=== PATIENT | female | born 1945 | race Caucasian/White ===

== ENCOUNTER 2018-04-01 21:02 | Inpatient (IN) | payer MEDICARE, BC ==
[2018-04-01] MEDS ORDERED: Furosemide 40 MG/4 ML VIAL IVPUSH ONE (22:32)
--- NOTE | 2018-04-01 23:44 | EDM.PDOC ---
ED HPI GENERAL MEDICAL PROBLEM - General Chief Complaint: Respiratory Problem Stated Complaint: SORTNESS BREATH/CONGESTED Time Seen by Provider: 04/01/18 21:40 Source of Information: Reports: Patient, Family (SOn) History Limitations: Reports: Altered Mental Status (Somnolent) - History of Present Illness INITIAL COMMENTS - FREE TEXT/NARRATIVE: The patient states that she has had dyspnea at rest for the past 3 days. She also reports nasal congestion for the past few days. No wheezing, cough, fever, orthopnea, chest pain, palpitations, nausea, vomiting, constipation, diarrhea, or urinary symptoms. The patient has not taken any home medications for her symptoms. She has a history of COPD, and is on 2-3 L of oxygen continuously, that she titrates 2 and SpO2 in the low 90s. She states that she has not required increased oxygen recently. She states that she has had similar symptoms previously, although does not recall when, and believes that it was due to CHF. The patient's PCP is Dr. Diana Haas. She has not seen a Bacteriology Professor for over a year. Her Filler Feeder is Dr. Robins, who she has not seen for over a year, but believes that she has an appointment to see him this coming June or July. - Related Data Allergies Allergy/AdvReac Type Severity Reaction Status Date / Time No Known Allergies Allergy Verified 04/01/18 21:15 Home Meds: Home Meds Acetaminophen 650 mg PO Q4H PRN 05/01/15 [History] Lisinopril 20 mg PO DAILY 05/01/15 [History] Similasan 1 drop EYEBOTH DAILY PRN 05/01/15 [History] Insulin Glargine,Hum.Rec.Anlog [Toujeo Solostar] 70 unit SQ DAILY 03/06/16 [ History] Liraglutide [Victoza] 0.6 mg SQ DAILY 03/07/16 [History] Furosemide 40 mg PO BID 03/22/16 [History] Warfarin [Coumadin] 2 mg PO DAILY 03/22/16 [History] Diltiazem [Cardizem CD] 120 mg PO DAILY 08/05/16 [History] Past Medical History HEENT History: Reports: Impaired Vision Other HEENT History: wears eyeglasses Cardiovascular History: Reports: Afib, Heart Failure, High Cholesterol, Hypertension Respiratory History: Reports: COPD (home O2 2-3 L/NC continuously), Intubation, Previous, Sleep Apnea (nightly CPAP w/ O2) Genitourinary History: Reports: Urinary Incontinence 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: Musculoskeletal History: Reports: Back Pain, Chronic, Osteoarthritis Endocrine/Metabolic History: Reports: Diabetes, Type II, Obesity/BMI 30+ - Infectious Disease History Infectious Disease History: Reports: Chicken Pox, Measles, Mumps - Past Surgical History HEENT Surgical History: Reports: Cataract Surgery Musculoskeletal Surgical History: Reports: Carpal Tunnel (right) Social & Family History - Family History Family Medical History: Noncontributory - Tobacco Use Smoking Status *Q: Former Smoker Years of Tobacco use: 33 Packs/Tins Daily: 0.5 Month/Year Tobacco Last Used: Quit 1994 - Caffeine Use Caffeine Use: Reports: Coffee - Alcohol Use Alcohol Use History: Yes Alcohol Use Frequency: Rarely - Recreational Drug Use Recreational Drug Use: No - Living Situation & Occupation Living situation: Reports: , with Spouse Occupation: Retired ED ROS GENERAL - Review of Systems Review Of Systems: ROS reveals no pertinent complaints other than HPI. ED EXAM, GENERAL - Physical Exam Exam: See Below Exam Limited By: No Limitations (The patient was somnolent, but did cooperate with the examination) General Appearance: Alert, WD/WN, No Apparent Distress Eye Exam: Bilateral Eye: Normal Inspection Ears: Normal External Exam, Hearing Grossly Normal Nose: Normal Inspection, No Blood Throat/Mouth: Normal Inspection, Normal Lips, Normal Voice, No Airway Compromise Head: Atraumatic, Normocephalic Neck: Normal Inspection Respiratory/Chest: No Respiratory Distress, No Accessory Muscle Use, Decreased Breath Sounds (throughout), Crackles (bibasilar, Rt > Lt). No: Rhonchi, Wheezing Cardiovascular: Normal Peripheral Pulses, Regular Rate, Rhythm, No Gallop, No JVD, No Murmur, No Rub Peripheral Pulses: 4+: Radial (L), Radial (R) GI/Abdominal: Normal Bowel Sounds, Soft, Non-Tender, No Organomegaly, No Distention, No Abnormal Bruit, No Mass, Other (Obese) (Female) Exam: Deferred Rectal (Female) Exam: Deferred Back Exam: Normal Inspection, Full Range of Motion, NT Extremities: Normal Inspection, Normal Range of Motion, Non-Tender, Normal Capillary Refill, Other (1-2 + pretibial edema bilaterally) Neurological: No Motor/Sensory Deficits, Inattentive (fell asleep frequently) Skin Exam: Warm, Dry, Intact, Normal Color, No Rash ED RESPIRATORY PROCEDURES - Endotracheal Intubation Time of Intubation: 01:16 ET Intubation Indication: Respiratory Failure Preparation: Suction, Balloon Tested, BVM Set Up, Difficult Airway Equip Airway Assessment: Obese Pre-Oxygenation: Assisted with BVM, 100% FiO2 Anesthesia Meds: Propofol (40 mg), Vecuronium (8 mg) Placement: Orotracheal, Cuffed, Uncomplicated Placement Cords Visualized: Yes, Grade 2 ETT Size In mm: 8.0 Number of Attempts: 1 Confirmed By: CO2 Indicator, Bilateral Breath Sounds, Chest Xray Tube Secured By: By RT EKG INTERPRETATION EKG Date: 04/01/18 Time: 22:39 Rhythm: A-Fib Rate (Beats/Min): 77 [place]: Normal P-Wave: Absent QRS: Normal ST-T: Normal QT: Normal Comparison: No Change Course - Vital Signs Last Recorded V/S: Last Vital Signs Temp 36.2 C 04/01/18 21:12 Pulse 74 04/02/18 07:15 Resp 16 04/02/18 07:15 BP 137/44 L 04/02/18 07:15 Pulse Ox 92 L 04/02/18 07:15 - Orders/Labs/Meds Orders: Active Orders 24 hr Category Date Time Status BIPAP Adult [RT BiPAP/CPAP] [RC] ASDIRECTED Care 04/01/18 23:42 Active EKG Documentation Completion [RC] STAT Care 04/01/18 22:30 Active Insert [place] Catheter [Insert Urinary Catheter] [OM.PC] Care 04/01/18 22:30 Ordered Q24H Urinary Catheter Assessment [RC] ASDIRECTED Care 04/02/18 03:11 Active CULTURE BLOOD [BC] Stat Lab 04/01/18 22:45 Received CULTURE BLOOD [BC] Stat Lab 04/01/18 23:00 Received UA W/MICROSCOPIC [URIN] Stat Lab 04/01/18 22:30 Ordered DOPamine/Dextrose 5%-Water [DOPamine in D5W 400 MG/250 Med 04/02/18 03:00 Active ML] 400 mg in 250 ml IV TITRATE Norepinephrine [Levophed] 4 mg Med 04/02/18 02:15 Active Dextrose 5% in Water 246 ml IV TITRATE Blood Culture x2 Reflex Set [OM.PC] Stat Oth 04/01/18 22:30 Ordered Nasogastric Orogastric Tube Insertion [OM.PC] Routine Oth 04/02/18 02:00 Ordered Medication Orders Acetaminophen (Tylenol) 650 mg PO Q4H PRN PRN Reason: Pain (Mild 1-3)/fever Hydrocodone Bitart/Acetaminophen ([place] 325-5 Mg) 1 tab PO Q4H PRN PRN Reason: Pain (moderate 4-6) Albuterol/Ipratropium (Duoneb 3.0-0.5 Mg/3 Ml) 3 ml NEB Q4H PRN PRN Reason: Shortness Of Breath/wheezing Bisacodyl (Dulcolax) 5 mg PO DAILY PRN PRN Reason: Constipation Docusate Sodium (Colace) 100 mg PO BID PRN PRN Reason: Constipation Enoxaparin Sodium (Lovenox) 40 mg SUBCUT DAILY [facility] Hydromorphone HCl (Dilaudid) 0.25 mg IVPUSH Q2H PRN PRN Reason: Pain (severe 7-10) Norepinephrine Bitartrate 4 mg (/ Dextrose/Water) 250 mls @ 7.5 mls/hr IV TITRATE [facility]; Protocol Last Titration: 04/02/18 02:50 Dose: 0 mcg/min, 0 mls/hr Admin: 04/02/18 02:37 Dose: 2 mcg/min, 7.5 mls/hr Dopamine HCl/Dextrose (Dopamine In D5w 400 Mg/250 Ml) 400 mg in 250 mls @ 62.936 mls/hr IV TITRATE [facility]; Protocol Last Titration: 04/02/18 07:51 Dose: 5 mcg/kg/min, 15.734 mls/hr Titration: 04/02/18 07:04 Dose: 4 mcg/kg/min, 12.587 mls/hr Titration: 04/02/18 04:44 Dose: 8 mcg/kg/min, 25.2 mls/hr Titration: 04/02/18 04:32 Dose: 10.01 mcg/kg/min, 31.5 mls/hr Titration: 04/02/18 04:23 Dose: 8 mcg/kg/min, 25.2 mls/hr Titration: 04/02/18 03:39 Dose: 4.98 mcg/kg/min, 15.7 mls/hr Titration: 04/02/18 02:55 Dose: 10.01 mcg/kg/min, 31.5 mls/hr Admin: 04/02/18 02:50 Dose: 20 mcg/kg/min, 62.936 mls/hr Midazolam HCl 50 mg/ Sodium (Chloride) 50 mls @ 1.67 mls/hr IV TITRATE [facility]; Protocol Sodium Chloride (Normal Saline) 500 mls @ 5 mls/hr IV DAILY [facility] Promethazine HCl 12.5 mg/ (Sodium Chloride) 50.5 mls @ 100 mls/hr IV Q6H PRN PRN Reason: Nausea/Vomiting Lorazepam (Ativan) 1 mg IV Q6H PRN PRN Reason: Anxiety Ondansetron HCl (Zofran) 4 mg IV Q6H PRN PRN Reason: Nausea/Vomiting Pantoprazole Sodium (Protonix Iv) 40 mg IV Q12HR [facility] Polyethylene Glycol (Miralax) 17 gm PO DAILY PRN PRN Reason: Constipation Senna/Docusate Sodium (Senna Plus) 1 tab PO BID PRN PRN Reason: Constipation Labs: Laboratory Tests 04/01/18 04/01/18 04/01/18 Range/Units 22:30 22:40 22:40 WBC 9.16 (3.98-10.04) K/mm3 RBC 3.87 L (3.98-5.22) M/mm3 Hgb 13.1 (11.2-15.7) gm/L Hct 42.5 (34.1-44.9) % MCV 109.8 H (79.4-94.8) fl MCH 33.9 H (25.6-32.2) pg MCHC 30.8 L (32.2-35.5) g/dl RDW Std Deviation 69.2 H (36.4-46.3) fL Plt Count 185 (182-369) K/mm3 MPV 11.4 (9.4-12.3) fl Neutrophils % (Manual) 78 H (40-60) % Band Neutrophils % 0 (0-10) % Lymphocytes % (Manual) 11 L (20-40) % Atypical Lymphs % 3 % Monocytes % (Manual) 7 (2-10) % Eosinophils % (Manual) 1 (0.7-5.8) % Basophils % (Manual) 0 L (0.1-1.2) Toxic Granulation 2+ moderate Platelet Estimate Adequate Plt Morphology Comment Normal Polychromasia 1+ slight Poikilocytosis 1+ slight Basophilic Stippling 1+ slight Anisocytosis 2+ moderate Microcytosis 1+ slight Macrocytosis 2+ moderate RBC Morph Comment Abnormal PT 20.3 H (9.5-12.1) SECONDS INR 1.89 APTT 34 H (24-31) SECONDS D-Dimer, Quantitative 0.49 (0.19-0.50) mg/L Puncture Site ABG pH (7.35-7.45) ABG pCO2 (35.0-45.0) mmHg ABG pO2 (80.0-100.0) mmHg ABG HCO3 (22.0-26.0) meq/L ABG O2 Saturation (96.0-97.0) % ABG Base Excess (-2-2.0) Daljit Test A-a Gradient mmHg O2 Delivery Device Oxygen Flow Rate FiO2 (21.00-100.00) % Tidal Volume cc PEEP cmH20 Pressure Support cmH2O Sodium (136-145) mEq/L Potassium (3.5-5.1) mEq/L Chloride (98-107) mEq/L Carbon Dioxide (21-32) mEq/L Anion Gap (5-15) BUN (7-18) mg/dL Creatinine (0.55-1.02) mg/dL Est Cr Clr Drug Dosing mL/min Estimated GFR (MDRD) (>60) mL/min BUN/Creatinine Ratio (14-18) Glucose (83-115) mg/dL Lactic Acid (0.4-2.0) mmol/L Calcium (8.5-10.1) mg/dL Total Bilirubin (0.2-1.0) mg/dL AST (15-37) U/L ALT (14-59) U/L Alkaline Phosphatase (46-116) U/L Troponin I (0.00-0.056) ng/mL NT-Pro-B Natriuret Pep (0-125) pg/mL Total Protein (6.4-8.2) g/dl Albumin (3.4-5.0) g/dl Globulin gm/dL Albumin/Globulin Ratio (1-2) Urine Color Yellow (Yellow) Urine Appearance Clear (Clear) Urine pH 5.5 (5.0-8.0) Ur Specific [place] 1.025 (1.005-1.030) Urine Protein Negative (Negative) Urine Glucose (UA) Negative (Negative) Urine Ketones Negative (Negative) Urine Occult Blood Trace-intact H (Negative) Urine Nitrite Negative (Negative) Urine Bilirubin Negative (Negative) Urine Urobilinogen 0.2 (0.2-1.0) Ur Leukocyte Esterase Trace H (Negative) Urine RBC Not seen (0-5) /hpf Urine WBC 0-5 (0-5) /hpf Ur Epithelial Cells 0-5 (0-5) /hpf Urine Bacteria Rare (FEW) /hpf Hyaline Casts 0-5 (0-5) /lpf Waxy Casts 0-5 (0-5) /lpf Urine Mucus Not seen (FEW) /hpf 04/01/18 04/01/18 04/01/18 Range/Units 22:40 22:40 22:40 WBC (3.98-10.04) K/mm3 RBC (3.98-5.22) M/mm3 Hgb (11.2-15.7) gm/L Hct (34.1-44.9) % MCV (79.4-94.8) fl MCH (25.6-32.2) pg MCHC (32.2-35.5) g/dl RDW Std Deviation (36.4-46.3) fL Plt Count (182-369) K/mm3 MPV (9.4-12.3) fl Neutrophils % (Manual) (40-60) % Band Neutrophils % (0-10) % Lymphocytes % (Manual) (20-40) % Atypical Lymphs % % Monocytes % (Manual) (2-10) % Eosinophils % (Manual) (0.7-5.8) % Basophils % (Manual) (0.1-1.2) Toxic Granulation Platelet Estimate Plt Morphology Comment Polychromasia Poikilocytosis Basophilic Stippling Anisocytosis Microcytosis Macrocytosis RBC Morph Comment PT (9.5-12.1) SECONDS INR APTT (24-31) SECONDS D-Dimer, Quantitative (0.19-0.50) mg/L Puncture Site ABG pH (7.35-7.45) ABG pCO2 (35.0-45.0) mmHg ABG pO2 (80.0-100.0) mmHg ABG HCO3 (22.0-26.0) meq/L ABG O2 Saturation (96.0-97.0) % ABG Base Excess (-2-2.0) Daljit Test A-a Gradient mmHg O2 Delivery Device Oxygen Flow Rate FiO2 (21.00-100.00) % Tidal Volume cc PEEP cmH20 Pressure Support cmH2O Sodium 141 (136-145) mEq/L Potassium 5.8 H (3.5-5.1) mEq/L Chloride 104 (98-107) mEq/L Carbon Dioxide 33 H (21-32) mEq/L Anion Gap 9.8 (5-15) BUN 72 H (7-18) mg/dL Creatinine 2.3 H (0.55-1.02) mg/dL Est Cr Clr Drug Dosing 19.37 mL/min Estimated GFR (MDRD) 21 (>60) mL/min BUN/Creatinine Ratio 31.3 H (14-18) Glucose 149 H (83-115) mg/dL Lactic Acid 0.6 (0.4-2.0) mmol/L Calcium 8.6 (8.5-10.1) mg/dL Total Bilirubin 1.1 H (0.2-1.0) mg/dL AST 25 (15-37) U/L ALT 35 (14-59) U/L Alkaline Phosphatase 116 (46-116) U/L Troponin I < 0.017 (0.00-0.056) ng/mL NT-Pro-B Natriuret Pep 4111 H (0-125) pg/mL Total Protein 7.1 (6.4-8.2) g/dl Albumin 3.7 (3.4-5.0) g/dl Globulin 3.4 gm/dL Albumin/Globulin Ratio 1.1 (1-2) Urine Color (Yellow) Urine Appearance (Clear) Urine pH (5.0-8.0) Ur Specific [place] (1.005-1.030) Urine Protein (Negative) Urine Glucose (UA) (Negative) Urine Ketones (Negative) Urine Occult Blood (Negative) Urine Nitrite (Negative) Urine Bilirubin (Negative) Urine Urobilinogen (0.2-1.0) Ur Leukocyte Esterase (Negative) Urine RBC (0-5) /hpf Urine WBC (0-5) /hpf Ur Epithelial Cells (0-5) /hpf Urine Bacteria (FEW) /hpf Hyaline Casts (0-5) /lpf Waxy Casts (0-5) /lpf Urine Mucus (FEW) /hpf 04/01/18 04/02/18 04/02/18 Range/Units 23:20 00:30 03:00 WBC (3.98-10.04) K/mm3 RBC (3.98-5.22) M/mm3 Hgb (11.2-15.7) gm/L Hct (34.1-44.9) % MCV (79.4-94.8) fl MCH (25.6-32.2) pg MCHC (32.2-35.5) g/dl RDW Std Deviation (36.4-46.3) fL Plt Count (182-369) K/mm3 MPV (9.4-12.3) fl Neutrophils % (Manual) (40-60) % Band Neutrophils % (0-10) % Lymphocytes % (Manual) (20-40) % Atypical Lymphs % % Monocytes % (Manual) (2-10) % Eosinophils % (Manual) (0.7-5.8) % Basophils % (Manual) (0.1-1.2) Toxic Granulation Platelet Estimate Plt Morphology Comment Polychromasia Poikilocytosis Basophilic Stippling Anisocytosis Microcytosis Macrocytosis RBC Morph Comment PT (9.5-12.1) SECONDS INR APTT (24-31) SECONDS D-Dimer, Quantitative (0.19-0.50) mg/L Puncture Site Rt radial Rt radial Rt radial ABG pH 7.27 L 7.23 L 7.22 L (7.35-7.45) ABG pCO2 72.0 H* 81.8 H* 80.6 H* (35.0-45.0) mmHg ABG pO2 76.0 L 92.0 113.0 H (80.0-100.0) mmHg ABG HCO3 32.2 H 33.1 H 32.1 H (22.0-26.0) meq/L ABG O2 Saturation 90.6 L 94.7 L 97.5 H (96.0-97.0) % ABG Base Excess 3.6 H 3.3 H 2.3 H (-2-2.0) Daljit Test Positive Positive A-a Gradient 65 126 427 mmHg O2 Delivery Device Nasal cannula Bipap Ventilator Oxygen Flow Rate 4.0 0.0 FiO2 36.00 50.00 100.00 (21.00-100.00) % Tidal Volume 400.0 cc PEEP 4.0 5.0 cmH20 Pressure Support 10.0 cmH2O Sodium (136-145) mEq/L Potassium (3.5-5.1) mEq/L Chloride (98-107) mEq/L Carbon Dioxide (21-32) mEq/L Anion Gap (5-15) BUN (7-18) mg/dL Creatinine (0.55-1.02) mg/dL Est Cr Clr Drug Dosing mL/min Estimated GFR (MDRD) (>60) mL/min BUN/Creatinine Ratio (14-18) Glucose (83-115) mg/dL Lactic Acid (0.4-2.0) mmol/L Calcium (8.5-10.1) mg/dL Total Bilirubin (0.2-1.0) mg/dL AST (15-37) U/L ALT (14-59) U/L Alkaline Phosphatase (46-116) U/L Troponin I (0.00-0.056) ng/mL NT-Pro-B Natriuret Pep (0-125) pg/mL Total Protein (6.4-8.2) g/dl Albumin (3.4-5.0) g/dl Globulin gm/dL Albumin/Globulin Ratio (1-2) Urine Color (Yellow) Urine Appearance (Clear) Urine pH (5.0-8.0) Ur Specific [place] (1.005-1.030) Urine Protein (Negative) Urine Glucose (UA) (Negative) Urine Ketones (Negative) Urine Occult Blood (Negative) Urine Nitrite (Negative) Urine Bilirubin (Negative) Urine Urobilinogen (0.2-1.0) Ur Leukocyte Esterase (Negative) Urine RBC (0-5) /hpf Urine WBC (0-5) /hpf Ur Epithelial Cells (0-5) /hpf Urine Bacteria (FEW) /hpf Hyaline Casts (0-5) /lpf Waxy Casts (0-5) /lpf Urine Mucus (FEW) /hpf 07/13/18 Range/Units 04:10 WBC (3.98-10.04) K/mm3 RBC (3.98-5.22) M/mm3 Hgb (11.2-15.7) gm/L Hct (34.1-44.9) % MCV (79.4-94.8) fl MCH (25.6-32.2) pg MCHC (32.2-35.5) g/dl RDW Std Deviation (36.4-46.3) fL Plt Count (182-369) K/mm3 MPV (9.4-12.3) fl Neutrophils % (Manual) (40-60) % Band Neutrophils % (0-10) % Lymphocytes % (Manual) (20-40) % Atypical Lymphs % % Monocytes % (Manual) (2-10) % Eosinophils % (Manual) (0.7-5.8) % Basophils % (Manual) (0.1-1.2) Toxic Granulation Platelet Estimate Plt Morphology Comment Polychromasia Poikilocytosis Basophilic Stippling Anisocytosis Microcytosis Macrocytosis RBC Morph Comment PT (9.5-12.1) SECONDS INR APTT (24-31) SECONDS D-Dimer, Quantitative (0.19-0.50) mg/L Puncture Site Rt radial ABG pH 7.34 L (7.35-7.45) ABG pCO2 56.2 H (35.0-45.0) mmHg ABG pO2 65.0 L (80.0-100.0) mmHg ABG HCO3 29.2 H (22.0-26.0) meq/L ABG O2 Saturation 89.1 L (96.0-97.0) % ABG Base Excess 2.6 H (-2-2.0) Daljit Test Positive A-a Gradient 313 mmHg O2 Delivery Device Ventilator Oxygen Flow Rate 0.0 FiO2 70.00 (21.00-100.00) % Tidal Volume 600.0 cc PEEP 5.0 cmH20 Pressure Support cmH2O Sodium (136-145) mEq/L Potassium (3.5-5.1) mEq/L Chloride (98-107) mEq/L Carbon Dioxide (21-32) mEq/L Anion Gap (5-15) BUN (7-18) mg/dL Creatinine (0.55-1.02) mg/dL Est Cr Clr Drug Dosing mL/min Estimated GFR (MDRD) (>60) mL/min BUN/Creatinine Ratio (14-18) Glucose (83-115) mg/dL Lactic Acid (0.4-2.0) mmol/L Calcium (8.5-10.1) mg/dL Total Bilirubin (0.2-1.0) mg/dL AST (15-37) U/L ALT (14-59) U/L Alkaline Phosphatase (46-116) U/L Troponin I (0.00-0.056) ng/mL NT-Pro-B Natriuret Pep (0-125) pg/mL Total Protein (6.4-8.2) g/dl Albumin (3.4-5.0) g/dl Globulin gm/dL Albumin/Globulin Ratio (1-2) Urine Color (Yellow) Urine Appearance (Clear) Urine pH (5.0-8.0) Ur Specific [place] (1.005-1.030) Urine Protein (Negative) Urine Glucose (UA) (Negative) Urine Ketones (Negative) Urine Occult Blood (Negative) Urine Nitrite (Negative) Urine Bilirubin (Negative) Urine Urobilinogen (0.2-1.0) Ur Leukocyte Esterase (Negative) Urine RBC (0-5) /hpf Urine WBC (0-5) /hpf Ur Epithelial Cells (0-5) /hpf Urine Bacteria (FEW) /hpf Hyaline Casts (0-5) /lpf Waxy Casts (0-5) /lpf Urine Mucus (FEW) /hpf Meds: Medications Generic Name Dose Route Start Last Admin Trade Name Freq PRN Reason Stop Dose Admin Acetaminophen 650 mg 04/02/18 08:09 Tylenol PO Q4H PRN Pain (Mild 1-3)/fever Hydrocodone Bitart/Acetaminophen 1 tab 04/02/18 08:09 [place] 325-5 Mg PO Q4H PRN Pain (moderate 4-6) Albuterol/Ipratropium 3 ml 04/02/18 08:09 Duoneb 3.0-0.5 Mg/3 Ml NEB Q4H PRN Shortness Of Breath/wheezing Bisacodyl 5 mg 04/02/18 08:09 Dulcolax PO DAILY PRN Constipation Docusate Sodium 100 mg 04/02/18 08:09 Colace PO BID PRN Constipation Enoxaparin Sodium 40 mg 04/02/18 09:00 Lovenox SUBCUT DAILY [facility] Hydromorphone HCl 0.25 mg 04/02/18 08:09 Dilaudid IVPUSH Q2H PRN Pain (severe 7-10) Norepinephrine Bitartrate 4 mg 250 mls @ 7.5 mls/hr 04/02/18 02:15 04/02/18 02:50 / Dextrose/Water IV 0 mcg/min TITRATE [facility] 0 mls/hr Titration Protocol 2 MCG/MIN Dopamine HCl/Dextrose 400 mg in 250 mls @ 62.936 mls/hr 04/02/18 03:00 07:51 Dopamine In D5w 400 Mg/250 Ml IV 5 mcg/kg/min TITRATE [facility] 15.734 mls/hr Titration Protocol 20 MCG/KG/MIN Midazolam HCl 50 mg/ Sodium 50 mls @ 1.67 mls/hr 04/02/18 07:45 Chloride IV TITRATE [facility] Protocol 0.02 MG/KG/HR Sodium Chloride 500 mls @ 5 mls/hr 04/02/18 09:00 Normal Saline IV DAILY [facility] Promethazine HCl 12.5 mg/ 50.5 mls @ 100 mls/hr 04/02/18 08:09 Sodium Chloride IV Q6H PRN Nausea/Vomiting Lorazepam 1 mg 04/02/18 08:09 Ativan IV Q6H PRN Anxiety Ondansetron HCl 4 mg 04/02/18 08:09 Zofran IV Q6H PRN Nausea/Vomiting Pantoprazole Sodium 40 mg 04/02/18 09:00 Protonix Iv IV Q12HR [facility] Polyethylene Glycol 17 gm 04/02/18 08:09 Miralax PO DAILY PRN Constipation Senna/Docusate Sodium 1 tab 04/02/18 08:09 Senna Plus PO BID PRN Constipation Discontinued Medications Generic Name Dose Route Start Last Admin Trade Name Freq PRN Reason Stop Dose Admin Calcium Gluconate 1 gm 04/02/18 00:24 04/02/18 00:38 Calcium Gluconate IV 04/02/18 00:25 1 gm ONETIME STA Administration Furosemide 40 mg 04/01/18 22:32 04/01/18 22:56 Lasix IVPUSH 04/01/18 22:33 40 mg NOW ONE Administration Propofol Confirm 04/02/18 00:58 04/02/18 02:36 Diprivan 100 Ml Administered 04/02/18 00:59 Not Given Dose 100 mls @ as directed .ROUTE .STK-MED ONE Midazolam HCl 50 mg/ Sodium 50 mls @ 0.5 mls/hr 04/02/18 02:00 Chloride IV TITRATE [facility] Protocol 0.5 MG/HR Midazolam HCl 50 mg/ Sodium 50 mls @ 1.67 mls/hr 04/02/18 02:06 04/02/18 06: 59 Chloride IV 0.11 mg/kg/hr TITRATE [facility] 10 mls/hr Titration Protocol 0.02 MG/KG/HR Sodium Chloride Confirm 04/02/18 02:14 04/02/18 02:37 Normal Saline Administered 04/02/18 02:15 Not Given Dose 50 mls @ as directed .ROUTE .STK-MED ONE Sodium Chloride 500 mls @ 1,000 mls/hr 04/02/18 02:16 04/02/18 02:37 Normal Saline IV 04/02/18 02:45 1,000 mls/hr .BOLUS ONE Administration Dopamine HCl/Dextrose Confirm 04/02/18 02:47 04/02/18 02:50 Dopamine In D5w 400 Mg/250 Ml Administered 04/02/18 02:48 Not Given Dose 400 mg in 250 mls @ as directed .ROUTE .STK-MED ONE Midazolam HCl 1 mg 04/02/18 02:12 04/02/18 02:17 Versed 1 Mg/Ml IVPUSH 04/02/18 02:13 1 mg ONETIME ONE Administration Midazolam HCl Confirm 04/02/18 02:13 04/02/18 02:17 Versed 5 Mg/Ml Administered 04/02/18 02:14 Not Given Dose 50 mg .ROUTE .STK-MED ONE - Re-Assessments/Exams Free Text/Narrative Re-Assessment/Exam: 04/01/18 23:43 Portable chest radiograph reviewed. There is cardiomegaly and mild pulmonary vascular congestion, to suggest at least some component of decompensated congestive heart failure. There is likely a left-sided pleural effusion. No obvious focal infiltrate, however, an infiltrate cannot be ruled out. No pneumothorax. Formal read per the Radiologist pending. The patient's ABG represents an [id number] respiratory acidosis with adequate oxygenation. I have ordered BiPAP. 04/02/18 00:24 The patient's CMP finds her potassium to be elevated at 5.8, and her BUN/Cr elevated at 72/2.3. Her BUN/Cr was 41/1.4 on 08/05/2016. I have ordered 1 g calcium gluconate. 04/02/18 00:44 After about 30 minutes on BiPAP, the patient's ABG shows worsening respiratory acidosis. She will require endotracheal intubation. 04/02/18 00:55 My recommendation to intubate the patient was discussed with the patient's son, primarily, as well as her , at the bedside. The patient, even without sedation, is so somnolent as to be nearly unarousable, and is therefore not decisional. The patient's son gave permission for us to proceed with endotracheal intubation. 04/02/18 01:22 The BiPAP was removed, and the patient was ventilated with BVM to a saturation approximately 97-98%. She was given 8 mg vecuronium, and about 2 minutes later 40 mg propofol. Once adequate anesthesia was achieved, the patient was intubated with an 8.0 ETT to 22 cm at the incisors, without difficulty, using a Mac 3 blade. We will sedate the patient with propofol 25 mcg/kg/m, initially. Portable chest radiograph will be taken after the OG tube has been placed. I have ordered an ABG to be drawn at 02:00. 04/02/18 01:29 Post-procedure portable chest radiograph appears to demonstrate the tip of the ET tube approximately 1 cm above the aniya, and the OG tube to the stomach via the esophagus. I will have the respiratory therapist pull the ET tube back approximately half a centimeter. 04/02/18 01:[address] Laurent at 01:43. He accepts the patient for admission to the ICU. He asked that I write bridge orders. 04/02/18 02:13 The patient's blood pressure was stable prior to intubation, and remained stable for several minutes after intubation, but then dropped into the 90s, likely because of the propofol. It has now been about half an hour since intubation, and her blood pressure has still not risen. This may be due to increased intrathoracic pressure, especially since the patient may be intravascularly depleted after receiving Lasix 40 mg IVP earlier tonight. In addition, the patient is now starting to wake up. Since the patient does not appear to be tolerating propofol, we are going to start a Versed drip once it has been made up. In the meantime, I have ordered Versed 1 mg IVP. I have ordered an IV fluid bolus and will start the patient on a low-dose of Levophed. 04/02/18 03:40 We switched the patient's Levophed to dopamine, because her heart rate was down , and she responded excessively. We now have her down to 5 mcg/kg/m of dopamine. The most recent ABG shows no significant change in the patient's acid-base status on A/C 14/.400/5/1.0. Based on her most recent ABG, her ideal tidal volume is 11.3 L/m, more than we can realistically expect. I have changed her vent to A/C 18/.600/5/0.7, which should significantly reduce her pCO2. We will recheck an ABG around 04:10. 04/02/18 04:27 Repeat ABG at 04:25 show substantial improvement in her pH and PCO2. The only vent change at this time will be to increase the FiO2 to 0.75. 04/02/18 08:43 Critical care time for this patient 300 minutes. Departure - Departure Time of Disposition: 01:46 Disposition: Admitted As Inpatient 67 Condition: Serious Clinical Impression: Acute on chronic renal failure, Hyperkalemia Hypercapnic respiratory failure Qualifiers: Chronicity: acute on chronic Qualified Code(s): J96.22 - Acute and chronic respiratory failure with hypercapnia - Discharge Information *PRESCRIPTION DRUG MONITORING PROGRAM REVIEWED*: Not Applicable *COPY OF PRESCRIPTION DRUG MONITORING REPORT IN PATIENT ALTAF: Not Applicable - My Orders Last 24 Hours: My Active Orders 04/01/18 22:30 EKG Documentation Completion [RC] STAT Insert Moreira Catheter [Insert Urinary Catheter] [OM.PC] Q24H UA W/MICROSCOPIC [URIN] Stat Blood Culture x2 Reflex Set [OM.PC] Stat 04/01/18 22:45 CULTURE BLOOD [BC] Stat 04/01/18 23:00 CULTURE BLOOD [BC] Stat 04/01/18 23:42 BIPAP Adult [RT BiPAP/CPAP] [RC] ASDIRECTED 04/02/18 02:00 Nasogastric Orogastric Tube Insertion [OM.PC] Routine 04/02/18 02:15 Norepinephrine [Levophed] 4 mg Dextrose 5% in Water 246 ml IV TITRATE 04/02/18 03:00 DOPamine/Dextrose 5%-Water [DOPamine in D5W 400 MG/250 ML] 400 mg in 250 ml IV TITRATE 04/02/18 03:11 Urinary Catheter Assessment [RC] ASDIRECTED - Assessment/Plan Last 24 Hours: My Active Orders 04/01/18 22:30 EKG Documentation Completion [RC] STAT Insert Moreira Catheter [Insert Urinary Catheter] [OM.PC] Q24H UA W/MICROSCOPIC [URIN] Stat Blood Culture x2 Reflex Set [OM.PC] Stat 04/01/18 22:45 CULTURE BLOOD [BC] Stat 04/01/18 23:00 CULTURE BLOOD [BC] Stat 04/01/18 23:42 BIPAP Adult [RT BiPAP/CPAP] [RC] ASDIRECTED 04/02/18 02:00 Nasogastric Orogastric Tube Insertion [OM.PC] Routine 04/02/18 02:15 Norepinephrine [Levophed] 4 mg Dextrose 5% in Water 246 ml IV TITRATE 04/02/18 03:00 DOPamine/Dextrose 5%-Water [DOPamine in D5W 400 MG/250 ML] 400 mg in 250 ml IV TITRATE 04/02/18 03:11 Urinary Catheter Assessment [RC] ASDIRECTED
[2018-04-02] MEDS ORDERED: Calcium Gluconate 10% 1 GM/10 ML SDV IV STA (00:24)
[2018-04-02] MEDS ORDERED: Midazolam 1 MG/ML 5 ML SDV IVPUSH ONE (01:00)
[2018-04-02] MEDS ORDERED: Midazolam 50 MG in Sodium Chloride 0.9% 40 ML IV SCH ×3 (02:00→07:45)
[2018-04-02] MEDS ORDERED: Midazolam 1 MG/ML 2 ML SDV IVPUSH ONE (02:12)
[2018-04-02] MEDS ORDERED: Midazolam 5 MG/ML 5 ML MDV ONE ×2 (02:13→02:15)
[2018-04-02] MEDS ORDERED: Sodium Chloride 0.9% 50 ML ONE (02:14)
[2018-04-02] MEDS ORDERED: Sodium Chloride 0.9% 500 ML IV ONE (02:16)
[2018-04-02] MEDS: Norepinephrine 4 MG in Dextrose 5% in Water 246 ML IV SCH ×2 (02:37)
[2018-04-02] MEDS ORDERED: DOPamine/Dextrose 5%-Water 400 MG/250 ML BAG ONE (02:47)
[2018-04-02] MEDS ORDERED: DOPamine/Dextrose 5%-Water 400 MG/250 ML BAG IV SCH (03:00)
--- NOTE | 2018-04-02 08:08 | CR ---
Chest: Frontal view of the chest was obtained. Comparison: Prior chest x-ray of 04/01/18. Endotracheal tube is seen. Tip lies slightly above the aniya in satisfactory position. Nasogastric tube courses off the inferior edge of the study into the stomach. Heart is enlarged. Widening of the mediastinum is seen which is stable. Slight bibasilar atelectasis is noted. Central pulmonary vessels are increased which appears stable. Impression: 1. Satisfactory position of endotracheal tube and nasogastric tube. 2. Mild bibasilar atelectasis. 3. Other findings as described above which are stable from prior chest x-ray. Diagnostic code #3
--- NOTE | 2018-04-02 08:08 | CR ---
Chest: Frontal view of the chest was obtained. Comparison: Prior chest x-ray of 08/05/16. Heart is enlarged. Widened mediastinum is seen. Findings are felt to be accentuated from portable technique as well as due to tortuous great vessels. Areas of atelectasis is seen within both lung bases. Difficult to exclude small area of pneumonia within the right base. Pulmonary vessels are mildly increased which appear to be chronic. Impression: 1. Cardiomegaly and mild chronic-appearing pulmonary vascular congestion. 2. Parenchymal density within the right lung base mostly due to atelectasis although difficult to exclude small area of pneumonia. 3. Mild left basilar atelectasis. Diagnostic code #3
[2018-04-02] MEDS ORDERED: Polyethylene Glycol 3350 Powder 17 GM Packet PO PRN (08:09)
[2018-04-02] MEDS ORDERED: Acetaminophen/HYDROcodone 325-5 MG Tab PO PRN (08:09)
[2018-04-02] MEDS ORDERED: HYDROmorphone 0.5 MG/0.5 ML SYRINGE IVPUSH PRN (08:09)
[2018-04-02] MEDS ORDERED: Docusate Sodium 100 MG Cap PO PRN (08:09)
[2018-04-02] MEDS ORDERED: Promethazine 12.5 MG in Sodium Chloride 0.9% 50 ML IV PRN (08:09)
[2018-04-02] MEDS ORDERED: Acetaminophen 325 MG Tab PO PRN (08:09)
[2018-04-02] MEDS ORDERED: Bisacodyl 5 MG Tab PO PRN (08:09)
[2018-04-02] MEDS ORDERED: Ondansetron 4 MG/2 ML SDV IV PRN (08:09)
[2018-04-02] MEDS: Albuterol/Ipratropium 3.0-0.5 MG/3 ML Neb Soln NEB PRN ×4 (10:03→21:54)
[2018-04-02] MEDS: Enoxaparin 30 MG/0.3 ML Syringe SUBCUT SCH (11:19)
[2018-04-02] MEDS: Pantoprazole 40 MG Vial IV SCH ×2 (11:19→21:21)
[2018-04-02] MEDS: Sodium Chloride 0.9% 500 ML IV SCH (11:20)
[2018-04-02] MEDS ORDERED: fentaNYL 2,500 MCG in Sodium Chloride 0.9% 200 ML IV SCH (12:45)
--- NOTE | 2018-04-02 13:03 | PCM.HP ---
<Laurel Cain - Last Filed: 04/02/18 16:35> H&P History of Present Illness - General Date of Service: 04/02/18 Admit Problem/Dx: Admission Diagnosis/Problem Admission Diagnosis/Problem Respiratory failure with hypercapnia Source of Information: Old Records, RN History Limitations: Reports: Other (Patient presently intubated/sedated ) - History of Present Illness Initial Comments - Free Text/Narative: This is a 75 y/o female with PMHx significant for COPD for which she is on 2-3L continuous O2 with titration of SpO2 in low 90s, previous intubation, afib, heart failure, Type 2 DM, HLD, HTN, SUSIE, OSH, urinary incontinence, obesity, chronic back pain, OA, who comes in for worsening dypsnea. Her work-up in the ED included CBC that was remarkable for RBC 3.87, MCV 109.8, 78% neutrophils. CMP remarkable for potassium 5.8, CO2 33, BUN 72, Cr 2.3, eGFR 21, glucose 149, Tbili 1.1. Lactic acid was 0.6. BNP was elevated at 4111. Troponin < 0.017. Multiple ABGs performed with increasing PCO2. Initial CXR ordered in ED read as cardiomegaly and mild chronic appearing pulmonary vascular congestion, parenchymal density within the right lung base mostly due to atelectasis although difficult to exclude small area of pneumonia, and mild left basilar atelectasis. Patient was subsequently intubated in ED Patient is unable to provide any history at this point secondary to being intubated and sedated. Per ED notes, patient reported that she had dyspnea at rest for the past 3 days. She also reported nasal congestion for the past few days. She denied wheezing, cough, fever, orthopnea, chest pain, palpitations, nausea, vomiting, constipation, diarrhea, or urinary symptoms. The patient reported that she had not taken any home medications for her symptoms. Of note, per ED records, she has not seen a project production engineer for over a year. Her Payment Specialist is Dr. Robins, who she has not seen for over a year but believes that she has an appointment to see him this coming June or July. She is subsequently admitted to ICU. She is a former smoker and quit in 1994. He is a full code. PCP is Dr. Diana Haas. - Related Data Allergies/Adverse Reactions: Allergies Allergy/AdvReac Type Severity Reaction Status Date / Time No Known Allergies Allergy Verified 04/01/18 21:15 Home Medications: Home Meds Lisinopril 20 mg PO DAILY 05/01/15 [History] Insulin Glargine,Hum.Rec.Anlog [Toujeo Solostar] 78 unit SQ DAILY 03/06/16 [ History] Liraglutide [Victoza] 1.2 mg SQ DAILY 03/07/16 [History] Furosemide 120 mg PO DAILY 03/22/16 [History] Warfarin [Coumadin] 2 mg PO DAILY 03/22/16 [History] Diltiazem [Cardizem CD] 120 mg PO DAILY 08/05/16 [History] Fluticasone/Vilanterol [Breo Ellipta 100-25 MCG Inhalation Kit] 1 inh INH DAILY 04/02/18 [History] Pregabalin [Lyrica] 50 mg PO TID 04/02/18 [History] guaiFENesin [Mucinex] 1,200 mg PO BID 04/02/18 [History] Past Medical History HEENT History: Reports: Impaired Vision Other HEENT History: wears eyeglasses Cardiovascular History: Reports: Afib, Heart Failure, High Cholesterol, Hypertension Respiratory History: Reports: COPD (home O2 2-3 L/NC continuously), Intubation, Previous, Sleep Apnea (nightly CPAP w/ O2) Other Respiratory History: uses cpap at night Genitourinary History: Reports: Urinary Incontinence 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: Musculoskeletal History: Reports: Back Pain, Chronic, Osteoarthritis Endocrine/Metabolic History: Reports: Diabetes, Type II, Obesity/BMI 30+ - Infectious Disease History Infectious Disease History: Reports: Chicken Pox, Measles, Mumps - Past Surgical History HEENT Surgical History: Reports: Cataract Surgery Musculoskeletal Surgical History: Reports: Carpal Tunnel (right) Social & Family History - Family History Family Medical History: Noncontributory - Tobacco Use Smoking Status *Q: Former Smoker Years of Tobacco use: 33 Packs/Tins Daily: 0.5 Month/Year Tobacco Last Used: Quit 1994 Tobacco Use Comment: unable to obtain - Caffeine Use Caffeine Use: Reports: Coffee Other Caffeine Use: unable to obtain - Recreational Drug Use Recreational Drug Use: No Other Recreational Drug Type: unable to obtain - Living Situation & Occupation Living situation: Reports: , with Spouse Occupation: Retired H&P Review of Systems - Review of Systems: Review Of Systems: Unable To Obtain (Patient is intubated/sedated) Exam - Exam Exam: See Below - Vital Signs Vital Signs: Last Vital Signs Temp 98.7 F 04/02/18 10:00 Pulse 56 L 04/02/18 12:30 Resp 18 04/02/18 12:30 BP 100/52 L 04/02/18 12:30 Pulse Ox 93 L 04/02/18 12:30 Weight: 111.674 kg - Exam Quality Assessment: Supplemental Oxygen, Urinary Catheter General: Sedated, Other (Intubated. Physical exam limited with current intubated and sedated state ) Neck: Supple, Trachea Midline. No: Lymphadenopathy Lungs: Decreased Breath Sounds, Other (Vent sounds present ). No: Crackles, Rales Cardiovascular: Regular Rate, Regular Rhythm, Normal S1, Normal S2 GI/Abdominal Exam: Normal Bowel Sounds, Soft (obese ), No Organomegaly, No Distention, No Mass (Female) Exam: Deferred Rectal (Female) Exam: Deferred Extremities: Normal Inspection Peripheral Pulses: 1+: Radial (L), Radial (R), Posterior Tibial (L), Posterior Tibial (R), Dorsalis Pedis (L), Dorsalis Pedis (R) Skin: Warm, Dry, Intact - Patient Data Lab Results Last 24 hrs: Laboratory Results - last 24 hr 04/01/18 04/01/18 04/01/18 Range/Units 22:30 22:40 22:40 WBC 9.16 (3.98-10.04) K/mm3 RBC 3.87 L (3.98-5.22) M/mm3 Hgb 13.1 (11.2-15.7) gm/L Hct 42.5 (34.1-44.9) % MCV 109.8 H (79.4-94.8) fl MCH 33.9 H (25.6-32.2) pg MCHC 30.8 L (32.2-35.5) g/dl RDW Std Deviation 69.2 H (36.4-46.3) fL Plt Count 185 (182-369) K/mm3 MPV 11.4 (9.4-12.3) fl Neutrophils % (Manual) 78 H (40-60) % Band Neutrophils % 0 (0-10) % Lymphocytes % (Manual) 11 L (20-40) % Atypical Lymphs % 3 % Monocytes % (Manual) 7 (2-10) % Eosinophils % (Manual) 1 (0.7-5.8) % Basophils % (Manual) 0 L (0.1-1.2) Toxic Granulation 2+ moderate Platelet Estimate Adequate Plt Morphology Comment Normal Polychromasia 1+ slight Poikilocytosis 1+ slight Basophilic Stippling 1+ slight Anisocytosis 2+ moderate Microcytosis 1+ slight Macrocytosis 2+ moderate RBC Morph Comment Abnormal PT 20.3 H (9.5-12.1) SECONDS INR 1.89 APTT 34 H (24-31) SECONDS D-Dimer, Quantitative 0.49 (0.19-0.50) mg/L Puncture Site ABG pH (7.35-7.45) ABG pCO2 (35.0-45.0) mmHg ABG pO2 (80.0-100.0) mmHg ABG HCO3 (22.0-26.0) meq/L ABG O2 Saturation (96.0-97.0) % ABG Base Excess (-2-2.0) Daljit Test A-a Gradient mmHg O2 Delivery Device Oxygen Flow Rate FiO2 (21.00-100.00) % Tidal Volume cc PEEP cmH20 Pressure Support cmH2O Sodium (136-145) mEq/L Potassium (3.5-5.1) mEq/L Chloride (98-107) mEq/L Carbon Dioxide (21-32) mEq/L Anion Gap (5-15) BUN (7-18) mg/dL Creatinine (0.55-1.02) mg/dL Est Cr Clr Drug Dosing mL/min Estimated GFR (MDRD) (>60) mL/min BUN/Creatinine Ratio (14-18) Glucose (83-115) mg/dL POC Glucose (83-110) mg/dL Lactic Acid (0.4-2.0) mmol/L Calcium (8.5-10.1) mg/dL Total Bilirubin (0.2-1.0) mg/dL AST (15-37) U/L ALT (14-59) U/L Alkaline Phosphatase (46-116) U/L Troponin I (0.00-0.056) ng/mL NT-Pro-B Natriuret Pep (0-125) pg/mL Total Protein (6.4-8.2) g/dl Albumin (3.4-5.0) g/dl Globulin gm/dL Albumin/Globulin Ratio (1-2) Urine Color Yellow (Yellow) Urine Appearance Clear (Clear) Urine pH 5.5 (5.0-8.0) Ur Specific Francis 1.025 (1.005-1.030) Urine Protein Negative (Negative) Urine Glucose (UA) Negative (Negative) Urine Ketones Negative (Negative) Urine Occult Blood Trace-intact H (Negative) Urine Nitrite Negative (Negative) Urine Bilirubin Negative (Negative) Urine Urobilinogen 0.2 (0.2-1.0) Ur Leukocyte Esterase Trace H (Negative) Urine RBC Not seen (0-5) /hpf Urine WBC 0-5 (0-5) /hpf Ur Epithelial Cells 0-5 (0-5) /hpf Urine Bacteria Rare (FEW) /hpf Hyaline Casts 0-5 (0-5) /lpf Waxy Casts 0-5 (0-5) /lpf Urine Mucus Not seen (FEW) /hpf 04/01/18 04/01/18 04/01/18 Range/Units 22:40 22:40 22:40 WBC (3.98-10.04) K/mm3 RBC (3.98-5.22) M/mm3 Hgb (11.2-15.7) gm/L Hct (34.1-44.9) % MCV (79.4-94.8) fl MCH (25.6-32.2) pg MCHC (32.2-35.5) g/dl RDW Std Deviation (36.4-46.3) fL Plt Count (182-369) K/mm3 MPV (9.4-12.3) fl Neutrophils % (Manual) (40-60) % Band Neutrophils % (0-10) % Lymphocytes % (Manual) (20-40) % Atypical Lymphs % % Monocytes % (Manual) (2-10) % Eosinophils % (Manual) (0.7-5.8) % Basophils % (Manual) (0.1-1.2) Toxic Granulation Platelet Estimate Plt Morphology Comment Polychromasia Poikilocytosis Basophilic Stippling Anisocytosis Microcytosis Macrocytosis RBC Morph Comment PT (9.5-12.1) SECONDS INR APTT (24-31) SECONDS D-Dimer, Quantitative (0.19-0.50) mg/L Puncture Site ABG pH (7.35-7.45) ABG pCO2 (35.0-45.0) mmHg ABG pO2 (80.0-100.0) mmHg ABG HCO3 (22.0-26.0) meq/L ABG O2 Saturation (96.0-97.0) % ABG Base Excess (-2-2.0) Daljit Test A-a Gradient mmHg O2 Delivery Device Oxygen Flow Rate FiO2 (21.00-100.00) % Tidal Volume cc PEEP cmH20 Pressure Support cmH2O Sodium 141 (136-145) mEq/L Potassium 5.8 H (3.5-5.1) mEq/L Chloride 104 (98-107) mEq/L Carbon Dioxide 33 H (21-32) mEq/L Anion Gap 9.8 (5-15) BUN 72 H (7-18) mg/dL Creatinine 2.3 H (0.55-1.02) mg/dL Est Cr Clr Drug Dosing 19.37 mL/min Estimated GFR (MDRD) 21 (>60) mL/min BUN/Creatinine Ratio 31.3 H (14-18) Glucose 149 H (83-115) mg/dL POC Glucose (83-110) mg/dL Lactic Acid 0.6 (0.4-2.0) mmol/L Calcium 8.6 (8.5-10.1) mg/dL Total Bilirubin 1.1 H (0.2-1.0) mg/dL AST 25 (15-37) U/L ALT 35 (14-59) U/L Alkaline Phosphatase 116 (46-116) U/L Troponin I < 0.017 (0.00-0.056) ng/mL NT-Pro-B Natriuret Pep 4111 H (0-125) pg/mL Total Protein 7.1 (6.4-8.2) g/dl Albumin 3.7 (3.4-5.0) g/dl Globulin 3.4 gm/dL Albumin/Globulin Ratio 1.1 (1-2) Urine Color (Yellow) Urine Appearance (Clear) Urine pH (5.0-8.0) Ur Specific Francis (1.005-1.030) Urine Protein (Negative) Urine Glucose (UA) (Negative) Urine Ketones (Negative) Urine Occult Blood (Negative) Urine Nitrite (Negative) Urine Bilirubin (Negative) Urine Urobilinogen (0.2-1.0) Ur Leukocyte Esterase (Negative) Urine RBC (0-5) /hpf Urine WBC (0-5) /hpf Ur Epithelial Cells (0-5) /hpf Urine Bacteria (FEW) /hpf Hyaline Casts (0-5) /lpf Waxy Casts (0-5) /lpf Urine Mucus (FEW) /hpf 04/01/18 04/02/18 04/02/18 Range/Units 23:20 00:30 03:00 WBC (3.98-10.04) K/mm3 RBC (3.98-5.22) M/mm3 Hgb (11.2-15.7) gm/L Hct (34.1-44.9) % MCV (79.4-94.8) fl MCH (25.6-32.2) pg MCHC (32.2-35.5) g/dl RDW Std Deviation (36.4-46.3) fL Plt Count (182-369) K/mm3 MPV (9.4-12.3) fl Neutrophils % (Manual) (40-60) % Band Neutrophils % (0-10) % Lymphocytes % (Manual) (20-40) % Atypical Lymphs % % Monocytes % (Manual) (2-10) % Eosinophils % (Manual) (0.7-5.8) % Basophils % (Manual) (0.1-1.2) Toxic Granulation Platelet Estimate Plt Morphology Comment Polychromasia Poikilocytosis Basophilic Stippling Anisocytosis Microcytosis Macrocytosis RBC Morph Comment PT (9.5-12.1) SECONDS INR APTT (24-31) SECONDS D-Dimer, Quantitative (0.19-0.50) mg/L Puncture Site Rt radial Rt radial Rt radial ABG pH 7.27 L 7.23 L 7.22 L (7.35-7.45) ABG pCO2 72.0 H* 81.8 H* 80.6 H* (35.0-45.0) mmHg ABG pO2 76.0 L 92.0 113.0 H (80.0-100.0) mmHg ABG HCO3 32.2 H 33.1 H 32.1 H (22.0-26.0) meq/L ABG O2 Saturation 90.6 L 94.7 L 97.5 H (96.0-97.0) % ABG Base Excess 3.6 H 3.3 H 2.3 H (-2-2.0) Daljit Test Positive Positive Positive A-a Gradient 65 126 427 mmHg O2 Delivery Device Nasal cannula Bipap Ventilator Oxygen Flow Rate 4.0 0.0 FiO2 36.00 50.00 100.00 (21.00-100.00) % Tidal Volume 400.0 cc PEEP 4.0 5.0 cmH20 Pressure Support 10.0 cmH2O Sodium (136-145) mEq/L Potassium (3.5-5.1) mEq/L Chloride (98-107) mEq/L Carbon Dioxide (21-32) mEq/L Anion Gap (5-15) BUN (7-18) mg/dL Creatinine (0.55-1.02) mg/dL Est Cr Clr Drug Dosing mL/min Estimated GFR (MDRD) (>60) mL/min BUN/Creatinine Ratio (14-18) Glucose (83-115) mg/dL POC Glucose (83-110) mg/dL Lactic Acid (0.4-2.0) mmol/L Calcium (8.5-10.1) mg/dL Total Bilirubin (0.2-1.0) mg/dL AST (15-37) U/L ALT (14-59) U/L Alkaline Phosphatase (46-116) U/L Troponin I (0.00-0.056) ng/mL NT-Pro-B Natriuret Pep (0-125) pg/mL Total Protein (6.4-8.2) g/dl Albumin (3.4-5.0) g/dl Globulin gm/dL Albumin/Globulin Ratio (1-2) Urine Color (Yellow) Urine Appearance (Clear) Urine pH (5.0-8.0) Ur Specific Francis (1.005-1.030) Urine Protein (Negative) Urine Glucose (UA) (Negative) Urine Ketones (Negative) Urine Occult Blood (Negative) Urine Nitrite (Negative) Urine Bilirubin (Negative) Urine Urobilinogen (0.2-1.0) Ur Leukocyte Esterase (Negative) Urine RBC (0-5) /hpf Urine WBC (0-5) /hpf Ur Epithelial Cells (0-5) /hpf Urine Bacteria (FEW) /hpf Hyaline Casts (0-5) /lpf Waxy Casts (0-5) /lpf Urine Mucus (FEW) /hpf 04/02/18 04/02/18 04/02/18 Range/Units 04:10 08:00 10:50 WBC (3.98-10.04) K/mm3 RBC (3.98-5.22) M/mm3 Hgb (11.2-15.7) gm/L Hct (34.1-44.9) % MCV (79.4-94.8) fl MCH (25.6-32.2) pg MCHC (32.2-35.5) g/dl RDW Std Deviation (36.4-46.3) fL Plt Count (182-369) K/mm3 MPV (9.4-12.3) fl Neutrophils % (Manual) (40-60) % Band Neutrophils % (0-10) % Lymphocytes % (Manual) (20-40) % Atypical Lymphs % % Monocytes % (Manual) (2-10) % Eosinophils % (Manual) (0.7-5.8) % Basophils % (Manual) (0.1-1.2) Toxic Granulation Platelet Estimate Plt Morphology Comment Polychromasia Poikilocytosis Basophilic Stippling Anisocytosis Microcytosis Macrocytosis RBC Morph Comment PT 20.9 H (9.5-12.1) SECONDS INR 1.94 APTT (24-31) SECONDS D-Dimer, Quantitative (0.19-0.50) mg/L Puncture Site Rt radial Lt radial ABG pH 7.34 L 7.37 (7.35-7.45) ABG pCO2 56.2 H 55.0 H (35.0-45.0) mmHg ABG pO2 65.0 L 67.0 L (80.0-100.0) mmHg ABG HCO3 29.2 H 30.8 H (22.0-26.0) meq/L ABG O2 Saturation 89.1 L 90.6 L (96.0-97.0) % ABG Base Excess 2.6 H 4.7 H (-2-2.0) Daljit Test Positive Positive A-a Gradient 313 344 mmHg O2 Delivery Device Ventilator Ventilator Oxygen Flow Rate 0.0 FiO2 70.00 75.00 (21.00-100.00) % Tidal Volume 600.0 450.0 cc PEEP 5.0 5.0 cmH20 Pressure Support cmH2O Sodium (136-145) mEq/L Potassium (3.5-5.1) mEq/L Chloride (98-107) mEq/L Carbon Dioxide (21-32) mEq/L Anion Gap (5-15) BUN (7-18) mg/dL Creatinine (0.55-1.02) mg/dL Est Cr Clr Drug Dosing mL/min Estimated GFR (MDRD) (>60) mL/min BUN/Creatinine Ratio (14-18) Glucose (83-115) mg/dL POC Glucose (83-110) mg/dL Lactic Acid (0.4-2.0) mmol/L Calcium (8.5-10.1) mg/dL Total Bilirubin (0.2-1.0) mg/dL AST (15-37) U/L ALT (14-59) U/L Alkaline Phosphatase (46-116) U/L Troponin I (0.00-0.056) ng/mL NT-Pro-B Natriuret Pep (0-125) pg/mL Total Protein (6.4-8.2) g/dl Albumin (3.4-5.0) g/dl Globulin gm/dL Albumin/Globulin Ratio (1-2) Urine Color (Yellow) Urine Appearance (Clear) Urine pH (5.0-8.0) Ur Specific Francis (1.005-1.030) Urine Protein (Negative) Urine Glucose (UA) (Negative) Urine Ketones (Negative) Urine Occult Blood (Negative) Urine Nitrite (Negative) Urine Bilirubin (Negative) Urine Urobilinogen (0.2-1.0) Ur Leukocyte Esterase (Negative) Urine RBC (0-5) /hpf Urine WBC (0-5) /hpf Ur Epithelial Cells (0-5) /hpf Urine Bacteria (FEW) /hpf Hyaline Casts (0-5) /lpf Waxy Casts (0-5) /lpf Urine Mucus (FEW) /hpf 04/02/18 Range/Units 10:53 WBC (3.98-10.04) K/mm3 RBC (3.98-5.22) M/mm3 Hgb (11.2-15.7) gm/L Hct (34.1-44.9) % MCV (79.4-94.8) fl MCH (25.6-32.2) pg MCHC (32.2-35.5) g/dl RDW Std Deviation (36.4-46.3) fL Plt Count (182-369) K/mm3 MPV (9.4-12.3) fl Neutrophils % (Manual) (40-60) % Band Neutrophils % (0-10) % Lymphocytes % (Manual) (20-40) % Atypical Lymphs % % Monocytes % (Manual) (2-10) % Eosinophils % (Manual) (0.7-5.8) % Basophils % (Manual) (0.1-1.2) Toxic Granulation Platelet Estimate Plt Morphology Comment Polychromasia Poikilocytosis Basophilic Stippling Anisocytosis Microcytosis Macrocytosis RBC Morph Comment PT (9.5-12.1) SECONDS INR APTT (24-31) SECONDS D-Dimer, Quantitative (0.19-0.50) mg/L Puncture Site ABG pH (7.35-7.45) ABG pCO2 (35.0-45.0) mmHg ABG pO2 (80.0-100.0) mmHg ABG HCO3 (22.0-26.0) meq/L ABG O2 Saturation (96.0-97.0) % ABG Base Excess (-2-2.0) Daljit Test A-a Gradient mmHg O2 Delivery Device Oxygen Flow Rate FiO2 (21.00-100.00) % Tidal Volume cc PEEP cmH20 Pressure Support cmH2O Sodium (136-145) mEq/L Potassium (3.5-5.1) mEq/L Chloride (98-107) mEq/L Carbon Dioxide (21-32) mEq/L Anion Gap (5-15) BUN (7-18) mg/dL Creatinine (0.55-1.02) mg/dL Est Cr Clr Drug Dosing mL/min Estimated GFR (MDRD) (>60) mL/min BUN/Creatinine Ratio (14-18) Glucose (83-115) mg/dL POC Glucose 169 H (83-110) mg/dL Lactic Acid (0.4-2.0) mmol/L Calcium (8.5-10.1) mg/dL Total Bilirubin (0.2-1.0) mg/dL AST (15-37) U/L ALT (14-59) U/L Alkaline Phosphatase (46-116) U/L Troponin I (0.00-0.056) ng/mL NT-Pro-B Natriuret Pep (0-125) pg/mL Total Protein (6.4-8.2) g/dl Albumin (3.4-5.0) g/dl Globulin gm/dL Albumin/Globulin Ratio (1-2) Urine Color (Yellow) Urine Appearance (Clear) Urine pH (5.0-8.0) Ur Specific Francis (1.005-1.030) Urine Protein (Negative) Urine Glucose (UA) (Negative) Urine Ketones (Negative) Urine Occult Blood (Negative) Urine Nitrite (Negative) Urine Bilirubin (Negative) Urine Urobilinogen (0.2-1.0) Ur Leukocyte Esterase (Negative) Urine RBC (0-5) /hpf Urine WBC (0-5) /hpf Ur Epithelial Cells (0-5) /hpf Urine Bacteria (FEW) /hpf Hyaline Casts (0-5) /lpf Waxy Casts (0-5) /lpf Urine Mucus (FEW) /hpf Result Diagrams: 04/02/18 15:40 04/02/18 15:40 Problem List Initiated/Reviewed/Updated: Yes Orders Last 24hrs: Active Orders 24 hr Category Date Time Status Patient Status [ADT] Routine ADT 04/02/18 06:17 Active BIPAP Adult [RT BiPAP/CPAP] [RC] ASDIRECTED Care 04/01/18 23:42 Active Blood Glucose Check, Bedside [RC] Q6HR Care 04/02/18 10:32 Active Cardiac Monitoring [RC] 03,09,15,21 Care 04/02/18 08:10 Active EKG Documentation Completion [RC] STAT Care 04/01/18 22:30 Active Height and Weight [RC] 04 Care 04/02/18 08:09 Active Insert Moreira Catheter [Insert Urinary Catheter] [OM.PC] Care 04/01/18 22:30 Ordered Q24H Intake and Output [RC] Q2HR Care 04/02/18 08:10 Active Oxygen Therapy [RC] PRN Care 04/02/18 08:09 Active RASS Sedation Scale [RC] ASDIRECTED Care 04/02/18 08:14 Active RT Aerosol Therapy [RC] ASDIRECTED Care 04/02/18 08:11 Active RT Ventilator, Adult [RC] ASDIRECTED Care 04/02/18 07:59 Active Up With Assistance [RC] ASDIRECTED Care 04/02/18 08:09 Active Up ad Adela [RC] ASDIRECTED Care 04/02/18 08:09 Active Urinary Catheter Assessment [RC] Q4HR Care 04/02/18 03:11 Active VTE/DVT Education [RC] DAILY Care 04/02/18 08:09 Active Vital Signs [RC] Q4H Care 04/02/18 08:09 Active Consult to Case Management [CONS] Routine Cons 04/02/18 08:09 Active Consult to Assistant Professor Of Archaeology [CONS] Routine Cons 04/02/18 08:09 Active Consult to Make Up Operator Helper [CONS] Routine Cons 04/02/18 08:09 Active Consult to Spiritual Care [CONS] Routine Cons 04/02/18 08:09 Active Respiratory Care Assess and Treatment [CONS] Routine Cons 04/02/18 08:09 Active Nothing per Oral Now Diet [DIET] Diet 04/02/18 Breakfast Active Chest 1V Frontal [CR] Routine Exams 04/02/18 12:13 Taken Echo Comp wo Cont [US] Routine Exams 04/02/18 09:49 Ordered BASIC METABOLIC PANEL,BMP [CHEM] AM Lab 04/03/18 05:11 Ordered BASIC METABOLIC PANEL,BMP [CHEM] AM Lab 04/04/18 05:11 Ordered BASIC METABOLIC PANEL,BMP [CHEM] AM Lab 04/05/18 05:11 Ordered BASIC METABOLIC PANEL,BMP [CHEM] AM Lab 04/06/18 05:11 Ordered C-REACTIVE PROTEIN [CHEM] AM Lab 04/03/18 05:11 Ordered CBC WITH AUTO DIFF [HEME] AM Lab 04/03/18 05:11 Ordered CBC WITH AUTO DIFF [HEME] AM Lab 04/04/18 05:11 Ordered CBC WITH AUTO DIFF [HEME] AM Lab 04/05/18 05:11 Ordered CULTURE BLOOD [BC] Stat Lab 04/01/18 22:45 Received CULTURE BLOOD [BC] Stat Lab 04/01/18 23:00 Received CULTURE SPUTUM + SMEAR [RM] Stat Lab 04/02/18 08:09 Ordered MAGNESIUM [CHEM] AM Lab 04/03/18 05:11 Ordered MAGNESIUM [CHEM] AM Lab 04/04/18 05:11 Ordered MAGNESIUM [CHEM] AM Lab 04/05/18 05:11 Ordered MAGNESIUM [CHEM] AM Lab 04/06/18 05:11 Ordered UA W/MICROSCOPIC [URIN] Stat Lab 04/01/18 22:30 Ordered Acetaminophen [Tylenol] Med 04/02/18 08:09 Active 650 mg PO Q4H PRN Acetaminophen/HYDROcodone [[place] 325-5 MG] Med 04/02/18 08:09 Active 1 tab PO Q4H PRN Albuterol/Ipratropium [DuoNeb 3.0-0.5 MG/3 ML] Med 04/02/18 08:09 Active 3 ml NEB Q4H PRN Bisacodyl [Dulcolax] Med 04/02/18 08:09 Active 5 mg PO DAILY PRN DOPamine/Dextrose 5%-Water [DOPamine in D5W 400 MG/250 Med 04/02/18 03:00 Active ML] 400 mg in 250 ml IV TITRATE Docusate Sodium [Colace] Med 04/02/18 08:09 Active 100 mg PO BID PRN Docusate Sodium/Sennosides [Senna Plus] Med 04/02/18 08:09 Active 1 tab PO BID PRN Enoxaparin [Lovenox] Med 04/02/18 09:00 Active 30 mg SUBCUT DAILY HYDROmorphone [Dilaudid] Med 04/02/18 08:09 Active 0.25 mg IVPUSH Q2H PRN LORazepam [Ativan] Med 04/02/18 08:09 Active 1 mg IV Q6H PRN Midazolam [Versed 5 MG/ML] 50 mg Med 04/02/18 07:45 Active Sodium Chloride 0.9% [Normal Saline] 40 ml IV TITRATE Norepinephrine [Levophed] 4 mg Med 04/02/18 02:15 Active Dextrose 5% in Water 246 ml IV TITRATE Ondansetron [Zofran] Med 04/02/18 08:09 Active 4 mg IV Q6H PRN Pantoprazole [ProTONIX IV] Med 04/02/18 09:00 Active 40 mg IV Q12HR Polyethylene Glycol 3350 [MiraLAX] Med 04/02/18 08:09 Active 17 gm PO DAILY PRN Promethazine [Phenergan] 12.5 mg Med 04/02/18 08:09 Active Sodium Chloride 0.9% [Normal Saline] 50 ml IV Q6H Sodium Chloride 0.9% [Normal Saline] 500 ml Med 04/02/18 09:00 Active IV DAILY fentaNYL [Sublimaze] 2,500 mcg Med 04/02/18 12:45 Active Sodium Chloride 0.9% [Normal Saline] 200 ml IV TITRATE Arterial Line Insertion [OM.PC] Routine Ot 04/02/18 08:03 Ordered Arterial Line Management [OM.PC] Routine Ot 04/02/18 08:03 Ordered Blood Culture x2 Reflex Set [OM.PC] Stat Ot 04/01/18 22:30 Ordered Nasogastric Orogastric Tube Insertion [OM.PC] Routine Ot 04/02/18 02:00 Ordered Resuscitation Status Routine Resus Stat 04/02/18 08:09 Ordered Medication Orders Acetaminophen (Tylenol) 650 mg PO Q4H PRN PRN Reason: Pain (Mild 1-3)/fever Hydrocodone Bitart/Acetaminophen ([place] 325-5 Mg) 1 tab PO Q4H PRN PRN Reason: Pain (moderate 4-6) Albuterol/Ipratropium (Duoneb 3.0-0.5 Mg/3 Ml) 3 ml NEB Q4H PRN PRN Reason: Shortness Of Breath/wheezing Last Admin: 04/02/18 10:03 Dose: 3 ml Bisacodyl (Dulcolax) 5 mg PO DAILY PRN PRN Reason: Constipation Docusate Sodium (Colace) 100 mg PO BID PRN PRN Reason: Constipation Enoxaparin Sodium (Lovenox) 30 mg SUBCUT DAILY [facility] Last Admin: 04/02/18 11:19 Dose: 30 mg Hydromorphone HCl (Dilaudid) 0.25 mg IVPUSH Q2H PRN PRN Reason: Pain (severe 7-10) Norepinephrine Bitartrate 4 mg (/ Dextrose/Water) 250 mls @ 7.5 mls/hr IV TITRATE [facility]; Protocol Last Titration: 04/02/18 12:22 Dose: 4 mcg/min, 15 mls/hr Titration: 04/02/18 12:10 Dose: 2 mcg/min, 7.5 mls/hr Titration: 04/02/18 02:50 Dose: 0 mcg/min, 0 mls/hr Admin: 04/02/18 02:37 Dose: 2 mcg/min, 7.5 mls/hr Dopamine HCl/Dextrose (Dopamine In D5w 400 Mg/250 Ml) 400 mg in 250 mls @ 62.936 mls/hr IV TITRATE [facility]; Protocol Last Titration: 04/02/18 12:08 Dose: 0 mcg/kg/min, 0 mls/hr Titration: 04/02/18 09:02 Dose: 4 mcg/kg/min, 12.587 mls/hr Titration: 04/02/18 08:23 Dose: 6 mcg/kg/min, 18.881 mls/hr Titration: 04/02/18 07:51 Dose: 5 mcg/kg/min, 15.734 mls/hr Titration: 04/02/18 07:04 Dose: 4 mcg/kg/min, 12.587 mls/hr Titration: 04/02/18 04:44 Dose: 8 mcg/kg/min, 25.2 mls/hr Titration: 04/02/18 04:32 Dose: 10.01 mcg/kg/min, 31.5 mls/hr Titration: 04/02/18 04:23 Dose: 8 mcg/kg/min, 25.2 mls/hr Titration: 04/02/18 03:39 Dose: 4.98 mcg/kg/min, 15.7 mls/hr Titration: 04/02/18 02:55 Dose: 10.01 mcg/kg/min, 31.5 mls/hr Admin: 04/02/18 02:50 Dose: 20 mcg/kg/min, 62.936 mls/hr Midazolam HCl 50 mg/ Sodium (Chloride) 50 mls @ 1.67 mls/hr IV TITRATE [facility]; Protocol Last Titration: 04/02/18 08:31 Dose: 0.01 mg/kg/hr, 0.83 mls/hr Admin: 04/02/18 08:24 Dose: 0.02 mg/kg/hr, 1.67 mls/hr Sodium Chloride (Normal Saline) 500 mls @ 5 mls/hr IV DAILY [facility] Last Admin: 04/02/18 11:20 Dose: 5 mls/hr Promethazine HCl 12.5 mg/ (Sodium Chloride) 50.5 mls @ 100 mls/hr IV Q6H PRN PRN Reason: Nausea/Vomiting Fentanyl 2,500 mcg/ Sodium (Chloride) 250 mls @ 11.16 mls/hr IV TITRATE [facility]; Protocol Lorazepam (Ativan) 1 mg IV Q6H PRN PRN Reason: Anxiety Ondansetron HCl (Zofran) 4 mg IV Q6H PRN PRN Reason: Nausea/Vomiting Pantoprazole Sodium (Protonix Iv) 40 mg IV Q12HR [facility] Last Admin: 04/02/18 11:19 Dose: 40 mg Polyethylene Glycol (Miralax) 17 gm PO DAILY PRN PRN Reason: Constipation Senna/Docusate Sodium (Senna Plus) 1 tab PO BID PRN PRN Reason: Constipation Assessment/Plan Comment:: Assessment/Plan: Acute Acute on Chronic Respiratory Failure: Combined hypoxemic and hypercapneic * Co-morbidities: HF, COPD, OHS, OHA and Morbid Obesity * Intubated in ED * RT consult * Vent settings adjusted * Goal for extubation tomorrow, 04/03/18 * Sedation ordered with adjustment as needed * Art line placed * OG tube in place Hypotension * Likely 2/2 sedative agents * Pressors as needed * Goal MAP > 65 Heart failure * BNP 4111 in ED * 2D Echo ordered * Received Lasix 40 mg IV push x 1 in ED * Home meds currently held Hematuria * UA shows trace-intact occult blood and no RBC seen * Urinary catheter output shows gross hematuria * Manual irrigation TID * Monitor Acute on chronic renal failure * Cr 2.3, eGFR 21 in ED * Baseline appears to be Cr 1.5-2.0 and eGFR 25-41 per records * Monitor Type 2 DM * Glucose 149 in ED * Patient's home diabetic meds currently held * Monitor Hyperkalemia * K 5.8 in ED * Received calcium gluconate in ED * Monitor Morbid Obesity * LSM * Dietary consult Chronic: COPD for which she is on 2-3L continuous O2 with titration of SpO2 in low 90s Previous intubation Afib --> she is on coumadin and diltiazem therapy at home; held currently Heart failure Type 2 DM HLD HTN SUSIE --> assess OSH Urinary incontinence Morbid Obesity Chronic back pain OA Plan: Admit to ICU Hold home meds Routine AM labs PT/OT consult SW/CM consult RT consult Dietitian consult DVT Prophylaxis: Lovenox GI Prophylaxis: Protonix Code status: Full Code PCP: Dr. Diana Haas <[facility] - Last Filed: 04/02/18 20:55> H&P History of Present Illness - General Admit Problem/Dx: Admission Diagnosis/Problem Admission Diagnosis/Problem Respiratory failure with hypercapnia Exam - Vital Signs Vital Signs: Last Vital Signs Temp 36.7 C 04/02/18 17:00 Pulse 77 04/02/18 19:00 Resp 18 04/02/18 19:00 BP 107/48 L 04/02/18 19:00 Pulse Ox 92 L 04/02/18 19:00 - Patient Data Lab Results Last 24 hrs: Laboratory Results - last 24 hr 04/01/18 04/01/18 04/01/18 Range/Units 22:30 22:40 22:40 WBC 9.16 (3.98-10.04) K/mm3 RBC 3.87 L (3.98-5.22) M/mm3 Hgb 13.1 (11.2-15.7) gm/L Hct 42.5 (34.1-44.9) % MCV 109.8 H (79.4-94.8) fl MCH 33.9 H (25.6-32.2) pg MCHC 30.8 L (32.2-35.5) g/dl RDW Std Deviation 69.2 H (36.4-46.3) fL Plt Count 185 (182-369) K/mm3 MPV 11.4 (9.4-12.3) fl Neut % (Auto) (34.0-71.1) % Lymph % (Auto) (19.3-51.7) % [place] % (Auto) (4.7-12.5) % Eos % (Auto) (0.7-5.8) Baso % (Auto) (0.1-1.2) % Neut # (Auto) (1.56-6.13) K/mm3 Lymph # (Auto) (1.18-3.74) K/mm3 [place] # (Auto) (0.24-0.36) K/mm3 Eos # (Auto) (0.04-0.36) K/mm3 Baso # (Auto) (0.01-0.08) K/mm3 Neutrophils % (Manual) 78 H (40-60) % Band Neutrophils % 0 (0-10) % Lymphocytes % (Manual) 11 L (20-40) % Atypical Lymphs % 3 % Monocytes % (Manual) 7 (2-10) % Eosinophils % (Manual) 1 (0.7-5.8) % Basophils % (Manual) 0 L (0.1-1.2) Manual Slide Review Toxic Granulation 2+ moderate Platelet Estimate Adequate Plt Morphology Comment Normal Polychromasia 1+ slight Poikilocytosis 1+ slight Basophilic Stippling 1+ slight Anisocytosis 2+ moderate Microcytosis 1+ slight Macrocytosis 2+ moderate RBC Morph Comment Abnormal PT 20.3 H (9.5-12.1) SECONDS INR 1.89 APTT 34 H (24-31) SECONDS D-Dimer, Quantitative 0.49 (0.19-0.50) mg/L Puncture Site ABG pH (7.35-7.45) ABG pCO2 (35.0-45.0) mmHg ABG pO2 (80.0-100.0) mmHg ABG HCO3 (22.0-26.0) meq/L ABG O2 Saturation (96.0-97.0) % ABG Base Excess (-2-2.0) Daljit Test A-a Gradient mmHg O2 Delivery Device Oxygen Flow Rate FiO2 (21.00-100.00) % Tidal Volume cc PEEP cmH20 Pressure Support cmH2O Sodium (136-145) mEq/L Potassium (3.5-5.1) mEq/L Chloride (98-107) mEq/L Carbon Dioxide (21-32) mEq/L Anion Gap (5-15) BUN (7-18) mg/dL Creatinine (0.55-1.02) mg/dL Est Cr Clr Drug Dosing mL/min Estimated GFR (MDRD) (>60) mL/min BUN/Creatinine Ratio (14-18) Glucose (83-115) mg/dL POC Glucose (83-110) mg/dL Lactic Acid (0.4-2.0) mmol/L Calcium (8.5-10.1) mg/dL Total Bilirubin (0.2-1.0) mg/dL AST (15-37) U/L ALT (14-59) U/L Alkaline Phosphatase (46-116) U/L Troponin I (0.00-0.056) ng/mL NT-Pro-B Natriuret Pep (0-125) pg/mL Total Protein (6.4-8.2) g/dl Albumin (3.4-5.0) g/dl Globulin gm/dL Albumin/Globulin Ratio (1-2) Urine Color Yellow (Yellow) Urine Appearance Clear (Clear) Urine pH 5.5 (5.0-8.0) Ur Specific Francis 1.025 (1.005-1.030) Urine Protein Negative (Negative) Urine Glucose (UA) Negative (Negative) Urine Ketones Negative (Negative) Urine Occult Blood Trace-intact H (Negative) Urine Nitrite Negative (Negative) Urine Bilirubin Negative (Negative) Urine Urobilinogen 0.2 (0.2-1.0) Ur Leukocyte Esterase Trace H (Negative) Urine RBC Not seen (0-5) /hpf Urine WBC 0-5 (0-5) /hpf Ur Epithelial Cells 0-5 (0-5) /hpf Urine Bacteria Rare (FEW) /hpf Hyaline Casts 0-5 (0-5) /lpf Waxy Casts 0-5 (0-5) /lpf Urine Mucus Not seen (FEW) /hpf 04/01/18 04/01/18 04/01/18 Range/Units 22:40 22:40 22:40 WBC (3.98-10.04) K/mm3 RBC (3.98-5.22) M/mm3 Hgb (11.2-15.7) gm/L Hct (34.1-44.9) % MCV (79.4-94.8) fl MCH (25.6-32.2) pg MCHC (32.2-35.5) g/dl RDW Std Deviation (36.4-46.3) fL Plt Count (182-369) K/mm3 MPV (9.4-12.3) fl Neut % (Auto) (34.0-71.1) % Lymph % (Auto) (19.3-51.7) % [place] % (Auto) (4.7-12.5) % Eos % (Auto) (0.7-5.8) Baso % (Auto) (0.1-1.2) % Neut # (Auto) (1.56-6.13) K/mm3 Lymph # (Auto) (1.18-3.74) K/mm3 [place] # (Auto) (0.24-0.36) K/mm3 Eos # (Auto) (0.04-0.36) K/mm3 Baso # (Auto) (0.01-0.08) K/mm3 Neutrophils % (Manual) (40-60) % Band Neutrophils % (0-10) % Lymphocytes % (Manual) (20-40) % Atypical Lymphs % % Monocytes % (Manual) (2-10) % Eosinophils % (Manual) (0.7-5.8) % Basophils % (Manual) (0.1-1.2) Manual Slide Review Toxic Granulation Platelet Estimate Plt Morphology Comment Polychromasia Poikilocytosis Basophilic Stippling Anisocytosis Microcytosis Macrocytosis RBC Morph Comment PT (9.5-12.1) SECONDS INR APTT (24-31) SECONDS D-Dimer, Quantitative (0.19-0.50) mg/L Puncture Site ABG pH (7.35-7.45) ABG pCO2 (35.0-45.0) mmHg ABG pO2 (80.0-100.0) mmHg ABG HCO3 (22.0-26.0) meq/L ABG O2 Saturation (96.0-97.0) % ABG Base Excess (-2-2.0) Daljit Test A-a Gradient mmHg O2 Delivery Device Oxygen Flow Rate FiO2 (21.00-100.00) % Tidal Volume cc PEEP cmH20 Pressure Support cmH2O Sodium 141 (136-145) mEq/L Potassium 5.8 H (3.5-5.1) mEq/L Chloride 104 (98-107) mEq/L Carbon Dioxide 33 H (21-32) mEq/L Anion Gap 9.8 (5-15) BUN 72 H (7-18) mg/dL Creatinine 2.3 H (0.55-1.02) mg/dL Est Cr Clr Drug Dosing 19.37 mL/min Estimated GFR (MDRD) 21 (>60) mL/min BUN/Creatinine Ratio 31.3 H (14-18) Glucose 149 H (83-115) mg/dL POC Glucose (83-110) mg/dL Lactic Acid 0.6 (0.4-2.0) mmol/L Calcium 8.6 (8.5-10.1) mg/dL Total Bilirubin 1.1 H (0.2-1.0) mg/dL AST 25 (15-37) U/L ALT 35 (14-59) U/L Alkaline Phosphatase 116 (46-116) U/L Troponin I < 0.017 (0.00-0.056) ng/mL NT-Pro-B Natriuret Pep 4111 H (0-125) pg/mL Total Protein 7.1 (6.4-8.2) g/dl Albumin 3.7 (3.4-5.0) g/dl Globulin 3.4 gm/dL Albumin/Globulin Ratio 1.1 (1-2) Urine Color (Yellow) Urine Appearance (Clear) Urine pH (5.0-8.0) Ur Specific Francis (1.005-1.030) Urine Protein (Negative) Urine Glucose (UA) (Negative) Urine Ketones (Negative) Urine Occult Blood (Negative) Urine Nitrite (Negative) Urine Bilirubin (Negative) Urine Urobilinogen (0.2-1.0) Ur Leukocyte Esterase (Negative) Urine RBC (0-5) /hpf Urine WBC (0-5) /hpf Ur Epithelial Cells (0-5) /hpf Urine Bacteria (FEW) /hpf Hyaline Casts (0-5) /lpf Waxy Casts (0-5) /lpf Urine Mucus (FEW) /hpf 04/01/18 04/02/18 04/02/18 Range/Units 23:20 00:30 03:00 WBC (3.98-10.04) K/mm3 RBC (3.98-5.22) M/mm3 Hgb (11.2-15.7) gm/L Hct (34.1-44.9) % MCV (79.4-94.8) fl MCH (25.6-32.2) pg MCHC (32.2-35.5) g/dl RDW Std Deviation (36.4-46.3) fL Plt Count (182-369) K/mm3 MPV (9.4-12.3) fl Neut % (Auto) (34.0-71.1) % Lymph % (Auto) (19.3-51.7) % [place] % (Auto) (4.7-12.5) % Eos % (Auto) (0.7-5.8) Baso % (Auto) (0.1-1.2) % Neut # (Auto) (1.56-6.13) K/mm3 Lymph # (Auto) (1.18-3.74) K/mm3 [place] # (Auto) (0.24-0.36) K/mm3 Eos # (Auto) (0.04-0.36) K/mm3 Baso # (Auto) (0.01-0.08) K/mm3 Neutrophils % (Manual) (40-60) % Band Neutrophils % (0-10) % Lymphocytes % (Manual) (20-40) % Atypical Lymphs % % Monocytes % (Manual) (2-10) % Eosinophils % (Manual) (0.7-5.8) % Basophils % (Manual) (0.1-1.2) Manual Slide Review Toxic Granulation Platelet Estimate Plt Morphology Comment Polychromasia Poikilocytosis Basophilic Stippling Anisocytosis Microcytosis Macrocytosis RBC Morph Comment PT (9.5-12.1) SECONDS INR APTT (24-31) SECONDS D-Dimer, Quantitative (0.19-0.50) mg/L Puncture Site Rt radial Rt radial Rt radial ABG pH 7.27 L 7.23 L 7.22 L (7.35-7.45) ABG pCO2 72.0 H* 81.8 H* 80.6 H* (35.0-45.0) mmHg ABG pO2 76.0 L 92.0 113.0 H (80.0-100.0) mmHg ABG HCO3 32.2 H 33.1 H 32.1 H (22.0-26.0) meq/L ABG O2 Saturation 90.6 L 94.7 L 97.5 H (96.0-97.0) % ABG Base Excess 3.6 H 3.3 H 2.3 H (-2-2.0) Daljit Test Positive Positive Positive A-a Gradient 65 126 427 mmHg O2 Delivery Device Nasal cannula Bipap Ventilator Oxygen Flow Rate 4.0 0.0 FiO2 36.00 50.00 100.00 (21.00-100.00) % Tidal Volume 400.0 cc PEEP 4.0 5.0 cmH20 Pressure Support 10.0 cmH2O Sodium (136-145) mEq/L Potassium (3.5-5.1) mEq/L Chloride (98-107) mEq/L Carbon Dioxide (21-32) mEq/L Anion Gap (5-15) BUN (7-18) mg/dL Creatinine (0.55-1.02) mg/dL Est Cr Clr Drug Dosing mL/min Estimated GFR (MDRD) (>60) mL/min BUN/Creatinine Ratio (14-18) Glucose (83-115) mg/dL POC Glucose (83-110) mg/dL Lactic Acid (0.4-2.0) mmol/L Calcium (8.5-10.1) mg/dL Total Bilirubin (0.2-1.0) mg/dL AST (15-37) U/L ALT (14-59) U/L Alkaline Phosphatase (46-116) U/L Troponin I (0.00-0.056) ng/mL NT-Pro-B Natriuret Pep (0-125) pg/mL Total Protein (6.4-8.2) g/dl Albumin (3.4-5.0) g/dl Globulin gm/dL Albumin/Globulin Ratio (1-2) Urine Color (Yellow) Urine Appearance (Clear) Urine pH (5.0-8.0) Ur Specific Francis (1.005-1.030) Urine Protein (Negative) Urine Glucose (UA) (Negative) Urine Ketones (Negative) Urine Occult Blood (Negative) Urine Nitrite (Negative) Urine Bilirubin (Negative) Urine Urobilinogen (0.2-1.0) Ur Leukocyte Esterase (Negative) Urine RBC (0-5) /hpf Urine WBC (0-5) /hpf Ur Epithelial Cells (0-5) /hpf Urine Bacteria (FEW) /hpf Hyaline Casts (0-5) /lpf Waxy Casts (0-5) /lpf Urine Mucus (FEW) /hpf 04/02/18 04/02/18 04/02/18 Range/Units 04:10 08:00 10:50 WBC (3.98-10.04) K/mm3 RBC (3.98-5.22) M/mm3 Hgb (11.2-15.7) gm/L Hct (34.1-44.9) % MCV (79.4-94.8) fl MCH (25.6-32.2) pg MCHC (32.2-35.5) g/dl RDW Std Deviation (36.4-46.3) fL Plt Count (182-369) K/mm3 MPV (9.4-12.3) fl Neut % (Auto) (34.0-71.1) % Lymph % (Auto) (19.3-51.7) % [place] % (Auto) (4.7-12.5) % Eos % (Auto) (0.7-5.8) Baso % (Auto) (0.1-1.2) % Neut # (Auto) (1.56-6.13) K/mm3 Lymph # (Auto) (1.18-3.74) K/mm3 [place] # (Auto) (0.24-0.36) K/mm3 Eos # (Auto) (0.04-0.36) K/mm3 Baso # (Auto) (0.01-0.08) K/mm3 Neutrophils % (Manual) (40-60) % Band Neutrophils % (0-10) % Lymphocytes % (Manual) (20-40) % Atypical Lymphs % % Monocytes % (Manual) (2-10) % Eosinophils % (Manual) (0.7-5.8) % Basophils % (Manual) (0.1-1.2) Manual Slide Review Toxic Granulation Platelet Estimate Plt Morphology Comment Polychromasia Poikilocytosis Basophilic Stippling Anisocytosis Microcytosis Macrocytosis RBC Morph Comment PT 20.9 H (9.5-12.1) SECONDS INR 1.94 APTT (24-31) SECONDS D-Dimer, Quantitative (0.19-0.50) mg/L Puncture Site Rt radial Lt radial ABG pH 7.34 L 7.37 (7.35-7.45) ABG pCO2 56.2 H 55.0 H (35.0-45.0) mmHg ABG pO2 65.0 L 67.0 L (80.0-100.0) mmHg ABG HCO3 29.2 H 30.8 H (22.0-26.0) meq/L ABG O2 Saturation 89.1 L 90.6 L (96.0-97.0) % ABG Base Excess 2.6 H 4.7 H (-2-2.0) Daljit Test Positive Positive A-a Gradient 313 344 mmHg O2 Delivery Device Ventilator Ventilator Oxygen Flow Rate 0.0 FiO2 70.00 75.00 (21.00-100.00) % Tidal Volume 600.0 450.0 cc PEEP 5.0 5.0 cmH20 Pressure Support cmH2O Sodium (136-145) mEq/L Potassium (3.5-5.1) mEq/L Chloride (98-107) mEq/L Carbon Dioxide (21-32) mEq/L Anion Gap (5-15) BUN (7-18) mg/dL Creatinine (0.55-1.02) mg/dL Est Cr Clr Drug Dosing mL/min Estimated GFR (MDRD) (>60) mL/min BUN/Creatinine Ratio (14-18) Glucose (83-115) mg/dL POC Glucose (83-110) mg/dL Lactic Acid (0.4-2.0) mmol/L Calcium (8.5-10.1) mg/dL Total Bilirubin (0.2-1.0) mg/dL AST (15-37) U/L ALT (14-59) U/L Alkaline Phosphatase (46-116) U/L Troponin I (0.00-0.056) ng/mL NT-Pro-B Natriuret Pep (0-125) pg/mL Total Protein (6.4-8.2) g/dl Albumin (3.4-5.0) g/dl Globulin gm/dL Albumin/Globulin Ratio (1-2) Urine Color (Yellow) Urine Appearance (Clear) Urine pH (5.0-8.0) Ur Specific Francis (1.005-1.030) Urine Protein (Negative) Urine Glucose (UA) (Negative) Urine Ketones (Negative) Urine Occult Blood (Negative) Urine Nitrite (Negative) Urine Bilirubin (Negative) Urine Urobilinogen (0.2-1.0) Ur Leukocyte Esterase (Negative) Urine RBC (0-5) /hpf Urine WBC (0-5) /hpf Ur Epithelial Cells (0-5) /hpf Urine Bacteria (FEW) /hpf Hyaline Casts (0-5) /lpf Waxy Casts (0-5) /lpf Urine Mucus (FEW) /hpf 07/13/18 07/13/18 07/13/18 Range/Units 10:53 15:40 15:40 WBC 12.13 H (3.98-10.04) K/mm3 RBC 3.81 L (3.98-5.22) M/mm3 Hgb 12.7 (11.2-15.7) gm/L Hct 41.0 (34.1-44.9) % MCV 107.6 H (79.4-94.8) fl MCH 33.3 H (25.6-32.2) pg MCHC 31.0 L (32.2-35.5) g/dl RDW Std Deviation 66.2 H (36.4-46.3) fL Plt Count 204 (182-369) K/mm3 MPV 11.6 (9.4-12.3) fl Neut % (Auto) 76.6 H (34.0-71.1) % Lymph % (Auto) 11.1 L (19.3-51.7) % [place] % (Auto) 10.6 (4.7-12.5) % Eos % (Auto) 1.0 (0.7-5.8) Baso % (Auto) 0.2 (0.1-1.2) % Neut # (Auto) 9.29 H (1.56-6.13) K/mm3 Lymph # (Auto) 1.35 (1.18-3.74) K/mm3 [place] # (Auto) 1.28 H (0.24-0.36) K/mm3 Eos # (Auto) 0.12 (0.04-0.36) K/mm3 Baso # (Auto) 0.03 (0.01-0.08) K/mm3 Neutrophils % (Manual) (40-60) % Band Neutrophils % (0-10) % Lymphocytes % (Manual) (20-40) % Atypical Lymphs % % Monocytes % (Manual) (2-10) % Eosinophils % (Manual) (0.7-5.8) % Basophils % (Manual) (0.1-1.2) Manual Slide Review Abnormal smear Toxic Granulation Platelet Estimate Plt Morphology Comment Polychromasia Poikilocytosis Basophilic Stippling Anisocytosis Microcytosis Macrocytosis RBC Morph Comment PT (9.5-12.1) SECONDS INR APTT (24-31) SECONDS D-Dimer, Quantitative (0.19-0.50) mg/L Puncture Site ABG pH (7.35-7.45) ABG pCO2 (35.0-45.0) mmHg ABG pO2 (80.0-100.0) mmHg ABG HCO3 (22.0-26.0) meq/L ABG O2 Saturation (96.0-97.0) % ABG Base Excess (-2-2.0) Daljit Test A-a Gradient mmHg O2 Delivery Device Oxygen Flow Rate FiO2 (21.00-100.00) % Tidal Volume cc PEEP cmH20 Pressure Support cmH2O Sodium 140 (136-145) mEq/L Potassium 5.5 H (3.5-5.1) mEq/L Chloride 106 (98-107) mEq/L Carbon Dioxide 30 (21-32) mEq/L Anion Gap 9.5 (5-15) BUN 71 H (7-18) mg/dL Creatinine 2.1 H (0.55-1.02) mg/dL Est Cr Clr Drug Dosing 21.37 mL/min Estimated GFR (MDRD) 23 (>60) mL/min BUN/Creatinine Ratio 33.8 H (14-18) Glucose 170 H (83-115) mg/dL POC Glucose 169 H (83-110) mg/dL Lactic Acid (0.4-2.0) mmol/L Calcium 8.3 L (8.5-10.1) mg/dL Total Bilirubin (0.2-1.0) mg/dL AST (15-37) U/L ALT (14-59) U/L Alkaline Phosphatase (46-116) U/L Troponin I (0.00-0.056) ng/mL NT-Pro-B Natriuret Pep (0-125) pg/mL Total Protein (6.4-8.2) g/dl Albumin (3.4-5.0) g/dl Globulin gm/dL Albumin/Globulin Ratio (1-2) Urine Color (Yellow) Urine Appearance (Clear) Urine pH (5.0-8.0) Ur Specific Francis (1.005-1.030) Urine Protein (Negative) Urine Glucose (UA) (Negative) Urine Ketones (Negative) Urine Occult Blood (Negative) Urine Nitrite (Negative) Urine Bilirubin (Negative) Urine Urobilinogen (0.2-1.0) Ur Leukocyte Esterase (Negative) Urine RBC (0-5) /hpf Urine WBC (0-5) /hpf Ur Epithelial Cells (0-5) /hpf Urine Bacteria (FEW) /hpf Hyaline Casts (0-5) /lpf Waxy Casts (0-5) /lpf Urine Mucus (FEW) /hpf 04/02/18 Range/Units 18:04 WBC (3.98-10.04) K/mm3 RBC (3.98-5.22) M/mm3 Hgb (11.2-15.7) gm/L Hct (34.1-44.9) % MCV (79.4-94.8) fl MCH (25.6-32.2) pg MCHC (32.2-35.5) g/dl RDW Std Deviation (36.4-46.3) fL Plt Count (182-369) K/mm3 MPV (9.4-12.3) fl Neut % (Auto) (34.0-71.1) % Lymph % (Auto) (19.3-51.7) % [place] % (Auto) (4.7-12.5) % Eos % (Auto) (0.7-5.8) Baso % (Auto) (0.1-1.2) % Neut # (Auto) (1.56-6.13) K/mm3 Lymph # (Auto) (1.18-3.74) K/mm3 [place] # (Auto) (0.24-0.36) K/mm3 Eos # (Auto) (0.04-0.36) K/mm3 Baso # (Auto) (0.01-0.08) K/mm3 Neutrophils % (Manual) (40-60) % Band Neutrophils % (0-10) % Lymphocytes % (Manual) (20-40) % Atypical Lymphs % % Monocytes % (Manual) (2-10) % Eosinophils % (Manual) (0.7-5.8) % Basophils % (Manual) (0.1-1.2) Manual Slide Review Toxic Granulation Platelet Estimate Plt Morphology Comment Polychromasia Poikilocytosis Basophilic Stippling Anisocytosis Microcytosis Macrocytosis RBC Morph Comment PT (9.5-12.1) SECONDS INR APTT (24-31) SECONDS D-Dimer, Quantitative (0.19-0.50) mg/L Puncture Site ABG pH (7.35-7.45) ABG pCO2 (35.0-45.0) mmHg ABG pO2 (80.0-100.0) mmHg ABG HCO3 (22.0-26.0) meq/L ABG O2 Saturation (96.0-97.0) % ABG Base Excess (-2-2.0) Daljit Test A-a Gradient mmHg O2 Delivery Device Oxygen Flow Rate FiO2 (21.00-100.00) % Tidal Volume cc PEEP cmH20 Pressure Support cmH2O Sodium (136-145) mEq/L Potassium (3.5-5.1) mEq/L Chloride (98-107) mEq/L Carbon Dioxide (21-32) mEq/L Anion Gap (5-15) BUN (7-18) mg/dL Creatinine (0.55-1.02) mg/dL Est Cr Clr Drug Dosing mL/min Estimated GFR (MDRD) (>60) mL/min BUN/Creatinine Ratio (14-18) Glucose (83-115) mg/dL POC Glucose 208 H (83-110) mg/dL Lactic Acid (0.4-2.0) mmol/L Calcium (8.5-10.1) mg/dL Total Bilirubin (0.2-1.0) mg/dL AST (15-37) U/L ALT (14-59) U/L Alkaline Phosphatase (46-116) U/L Troponin I (0.00-0.056) ng/mL NT-Pro-B Natriuret Pep (0-125) pg/mL Total Protein (6.4-8.2) g/dl Albumin (3.4-5.0) g/dl Globulin gm/dL Albumin/Globulin Ratio (1-2) Urine Color (Yellow) Urine Appearance (Clear) Urine pH (5.0-8.0) Ur Specific Francis (1.005-1.030) Urine Protein (Negative) Urine Glucose (UA) (Negative) Urine Ketones (Negative) Urine Occult Blood (Negative) Urine Nitrite (Negative) Urine Bilirubin (Negative) Urine Urobilinogen (0.2-1.0) Ur Leukocyte Esterase (Negative) Urine RBC (0-5) /hpf Urine WBC (0-5) /hpf Ur Epithelial Cells (0-5) /hpf Urine Bacteria (FEW) /hpf Hyaline Casts (0-5) /lpf Waxy Casts (0-5) /lpf Urine Mucus (FEW) /hpf Result Diagrams: 04/02/18 15:40 04/02/18 15:40 Orders Last 24hrs: Active Orders 24 hr Category Date Time Status Patient Status [ADT] Routine ADT 04/02/18 06:17 Active BIPAP Adult [RT BiPAP/CPAP] [RC] ASDIRECTED Care 04/01/18 23:42 Active Blood Glucose Check, Bedside [RC] Q6HR Care 04/02/18 10:32 Active Cardiac Monitoring [RC] .PRN Care 04/02/18 08:10 Active Height and Weight [RC] 04 Care 04/02/18 08:09 Active Insert Moreira Catheter [Insert Urinary Catheter] [OM.PC] Care 04/01/18 22:30 Ordered Q24H Intake and Output [RC] Q2HR Care 04/02/18 08:10 Active RASS Sedation Scale [RC] ASDIRECTED Care 04/02/18 08:14 Active RT Aerosol Therapy [RC] ASDIRECTED Care 04/02/18 08:11 Active RT Ventilator, Adult [RC] ASDIRECTED Care 04/02/18 07:59 Active Up With Assistance [RC] ASDIRECTED Care 04/02/18 08:09 Active Up ad Adela [RC] ASDIRECTED Care 04/02/18 08:09 Active Urinary Catheter Assessment [RC] Q4HR Care 04/02/18 03:11 Active VTE/DVT Education [RC] DAILY Care 04/02/18 08:09 Active Consult to Case Management [CONS] Routine Cons 04/02/18 08:09 Active Consult to Assistant Professor Of Archaeology [CONS] Routine Cons 04/02/18 08:09 Active Consult to Make Up Operator Helper [CONS] Routine Cons 04/02/18 08:09 Active Consult to Spiritual Care [CONS] Routine Cons 04/02/18 08:09 Active Respiratory Care Assess and Treatment [CONS] Routine Cons 04/02/18 08:09 Active Nothing per Oral Now Diet [DIET] Diet 04/02/18 Breakfast Active BASIC METABOLIC PANEL,BMP [CHEM] AM Lab 04/03/18 05:11 Ordered BASIC METABOLIC PANEL,BMP [CHEM] AM Lab 04/04/18 05:11 Ordered BASIC METABOLIC PANEL,BMP [CHEM] AM Lab 04/05/18 05:11 Ordered BASIC METABOLIC PANEL,BMP [CHEM] AM Lab 04/06/18 05:11 Ordered C-REACTIVE PROTEIN [CHEM] AM Lab 04/03/18 05:11 Ordered CBC WITH AUTO DIFF [HEME] AM Lab 04/03/18 05:11 Ordered CBC WITH AUTO DIFF [HEME] AM Lab 04/04/18 05:11 Ordered CBC WITH AUTO DIFF [HEME] AM Lab 04/05/18 05:11 Ordered CULTURE BLOOD [BC] Stat Lab 04/01/18 22:45 Received CULTURE BLOOD [BC] Stat Lab 04/01/18 23:00 Received CULTURE SPUTUM + SMEAR [RM] Stat Lab 04/02/18 08:09 Ordered MAGNESIUM [CHEM] AM Lab 04/03/18 05:11 Ordered MAGNESIUM [CHEM] AM Lab 04/04/18 05:11 Ordered MAGNESIUM [CHEM] AM Lab 04/05/18 05:11 Ordered MAGNESIUM [CHEM] AM Lab 04/06/18 05:11 Ordered UA W/MICROSCOPIC [URIN] Stat Lab 04/01/18 22:30 Ordered Acetaminophen [Tylenol] Med 04/02/18 08:09 Active 650 mg PO Q4H PRN Acetaminophen/HYDROcodone [[place] 325-5 MG] Med 04/02/18 08:09 Active 1 tab PO Q4H PRN Albuterol/Ipratropium [DuoNeb 3.0-0.5 MG/3 ML] Med 04/02/18 08:09 Active 3 ml NEB Q4H PRN Bisacodyl [Dulcolax] Med 04/02/18 08:09 Active 5 mg PO DAILY PRN DOPamine/Dextrose 5%-Water [DOPamine in D5W 400 MG/250 Med 04/02/18 03:00 Active ML] 400 mg in 250 ml IV TITRATE Dextrose 5%-0.9% NaCl [Dextrose 5%-Normal Saline] 1,000 Med 04/02/18 15:15 Active ml IV ASDIRECTED Diltiazem [Cardizem CD] Med 04/03/18 09:00 Active 120 mg PO DAILY Docusate Sodium [Colace] Med 04/02/18 08:09 Active 100 mg PO BID PRN Docusate Sodium/Sennosides [Senna Plus] Med 04/02/18 08:09 Active 1 tab PO BID PRN Enoxaparin [Lovenox] Med 04/02/18 09:00 Active 30 mg SUBCUT DAILY Furosemide [Lasix] Med 04/03/18 09:00 Active 120 mg PO DAILY HYDROmorphone [Dilaudid] Med 04/02/18 08:09 Active 0.25 mg IVPUSH Q2H PRN Insulin Aspart [NovoLOG] Med 04/02/18 22:00 Active See Protocol SUBCUT QIDACANDBED LORazepam [Ativan] Med 04/02/18 08:09 Active 1 mg IV Q6H PRN Liraglutide Med 04/03/18 09:00 Pending 1.2 mg SQ DAILY Lisinopril [Prinivil] Med 04/03/18 09:00 Active 20 mg PO DAILY Midazolam [Versed 5 MG/ML] 50 mg Med 04/02/18 07:45 Active Sodium Chloride 0.9% [Normal Saline] 40 ml IV TITRATE Mometasone/Formoterol [Dulera 100-5 MCG] Med 04/03/18 09:00 Active 2 puff IH BID Norepinephrine [Levophed] 4 mg Med 04/02/18 02:15 Active Dextrose 5% in Water 246 ml IV TITRATE Ondansetron [Zofran] Med 04/02/18 08:09 Active 4 mg IV Q6H PRN Pantoprazole [ProTONIX IV] Med 04/02/18 09:00 Active 40 mg IV Q12HR Polyethylene Glycol 3350 [MiraLAX] Med 04/02/18 08:09 Active 17 gm PO DAILY PRN Pregabalin [Lyrica] Med 04/02/18 21:00 Active 50 mg PO TID Promethazine [Phenergan] 12.5 mg Med 04/02/18 08:09 Active Sodium Chloride 0.9% [Normal Saline] 50 ml IV Q6H Sodium Chloride 0.9% [Normal Saline] 500 ml Med 04/02/18 09:00 Active IV DAILY Warfarin [Coumadin] Med 04/03/18 18:00 Active 2 mg PO DAILY@1800 fentaNYL [Sublimaze] 2,500 mcg Med 04/02/18 12:45 Active Sodium Chloride 0.9% [Normal Saline] 200 ml IV TITRATE Arterial Line Insertion [OM.PC] Routine Oth 04/02/18 08:03 Ordered Arterial Line Management [OM.PC] Routine Oth 04/02/18 08:03 Ordered Blood Culture x2 Reflex Set [OM.PC] Stat Oth 04/01/18 22:30 Ordered Nasogastric Orogastric Tube Insertion [OM.PC] Routine Oth 04/02/18 02:00 Ordered Resuscitation Status Routine Resus Stat 04/02/18 08:09 Ordered Medication Orders Acetaminophen (Tylenol) 650 mg PO Q4H PRN PRN Reason: Pain (Mild 1-3)/fever Hydrocodone Bitart/Acetaminophen ([place] 325-5 Mg) 1 tab PO Q4H PRN PRN Reason: Pain (moderate 4-6) Albuterol/Ipratropium (Duoneb 3.0-0.5 Mg/3 Ml) 3 ml NEB Q4H PRN PRN Reason: Shortness Of Breath/wheezing Last Admin: 04/02/18 17:39 Dose: 3 ml Admin: 04/02/18 14:20 Dose: 3 ml Admin: 04/02/18 10:03 Dose: 3 ml Bisacodyl (Dulcolax) 5 mg PO DAILY PRN PRN Reason: Constipation Diltiazem HCl (Cardizem Cd) 120 mg PO DAILY [facility] Docusate Sodium (Colace) 100 mg PO BID PRN PRN Reason: Constipation Enoxaparin Sodium (Lovenox) 30 mg SUBCUT DAILY [facility] Last Admin: 04/02/18 11:19 Dose: 30 mg Furosemide (Lasix) 120 mg PO DAILY [facility] Hydromorphone HCl (Dilaudid) 0.25 mg IVPUSH Q2H PRN PRN Reason: Pain (severe 7-10) Norepinephrine Bitartrate 4 mg (/ Dextrose/Water) 250 mls @ 7.5 mls/hr IV TITRATE [facility]; Protocol Last Titration: 04/02/18 18:52 Dose: 4 mcg/min, 15 mls/hr Titration: 04/02/18 17:09 Dose: 3 mcg/min, 11.25 mls/hr Titration: 04/02/18 15:43 Dose: 4 mcg/min, 15 mls/hr Titration: 04/02/18 13:05 Dose: 3 mcg/min, 11.25 mls/hr Titration: 04/02/18 12:22 Dose: 4 mcg/min, 15 mls/hr Titration: 04/02/18 12:10 Dose: 2 mcg/min, 7.5 mls/hr Titration: 04/02/18 02:50 Dose: 0 mcg/min, 0 mls/hr Admin: 04/02/18 02:37 Dose: 2 mcg/min, 7.5 mls/hr Dopamine HCl/Dextrose (Dopamine In D5w 400 Mg/250 Ml) 400 mg in 250 mls @ 62.936 mls/hr IV TITRATE [facility]; Protocol Last Titration: 04/02/18 12:08 Dose: 0 mcg/kg/min, 0 mls/hr Titration: 04/02/18 09:02 Dose: 4 mcg/kg/min, 12.587 mls/hr Titration: 04/02/18 08:23 Dose: 6 mcg/kg/min, 18.881 mls/hr Titration: 04/02/18 07:51 Dose: 5 mcg/kg/min, 15.734 mls/hr Titration: 04/02/18 07:04 Dose: 4 mcg/kg/min, 12.587 mls/hr Titration: 04/02/18 04:44 Dose: 8 mcg/kg/min, 25.2 mls/hr Titration: 04/02/18 04:32 Dose: 10.01 mcg/kg/min, 31.5 mls/hr Titration: 04/02/18 04:23 Dose: 8 mcg/kg/min, 25.2 mls/hr Titration: 04/02/18 03:39 Dose: 4.98 mcg/kg/min, 15.7 mls/hr Titration: 04/02/18 02:55 Dose: 10.01 mcg/kg/min, 31.5 mls/hr Admin: 04/02/18 02:50 Dose: 20 mcg/kg/min, 62.936 mls/hr Midazolam HCl 50 mg/ Sodium (Chloride) 50 mls @ 1.67 mls/hr IV TITRATE [facility]; Protocol Last Titration: 04/02/18 08:31 Dose: 0.01 mg/kg/hr, 0.83 mls/hr Admin: 04/02/18 08:24 Dose: 0.02 mg/kg/hr, 1.67 mls/hr Sodium Chloride (Normal Saline) 500 mls @ 5 mls/hr IV DAILY [facility] Last Admin: 04/02/18 11:20 Dose: 5 mls/hr Promethazine HCl 12.5 mg/ (Sodium Chloride) 50.5 mls @ 100 mls/hr IV Q6H PRN PRN Reason: Nausea/Vomiting Fentanyl 2,500 mcg/ Sodium (Chloride) 250 mls @ 11.16 mls/hr IV TITRATE [facility]; Protocol Last Titration: 04/02/18 18:52 Dose: 1.1 mcg/kg/hr, 12.28 mls/hr Titration: 04/02/18 17:09 Dose: 1.2 mcg/kg/hr, 13.4 mls/hr Titration: 04/02/18 15:36 Dose: 1 mcg/kg/hr, 11.16 mls/hr Titration: 04/02/18 15:03 Dose: 1.1 mcg/kg/hr, 12.28 mls/hr Titration: 04/02/18 14:31 Dose: 1.2 mcg/kg/hr, 13.4 mls/hr Admin: 04/02/18 13:22 Dose: 1 mcg/kg/hr, 11.16 mls/hr Dextrose/Sodium Chloride (Dextrose 5%-Normal Saline) 1,000 mls @ 125 mls/hr IV ASDIRECTED [facility] Last Admin: 04/02/18 15:22 Dose: 125 mls/hr Insulin Aspart (Novolog) 0 unit SUBCUT QIDACANDBED [facility]; Protocol Lisinopril (Prinivil) 20 mg PO DAILY [facility] Lorazepam (Ativan) 1 mg IV Q6H PRN PRN Reason: Anxiety Last Admin: 04/02/18 20:24 Dose: 1 mg Mometasone Furoate/Formoterol Fumar (Dulera 100-5 Mcg) 2 puff IH BID [facility] Non-Formulary Medication (Liraglutide) 1.2 mg SQ DAILY [facility] Ondansetron HCl (Zofran) 4 mg IV Q6H PRN PRN Reason: Nausea/Vomiting Pantoprazole Sodium (Protonix Iv) 40 mg IV Q12HR [facility] Last Admin: 04/02/18 11:19 Dose: 40 mg Polyethylene Glycol (Miralax) 17 gm PO DAILY PRN PRN Reason: Constipation Pregabalin (Lyrica) 50 mg PO TID [facility] Senna/Docusate Sodium (Senna Plus) 1 tab PO BID PRN PRN Reason: Constipation Warfarin Sodium (Coumadin) 2 mg PO DAILY@1800 [facility] Assessment/Plan Comment:: The patient was seen and examined at bedside in concert with the PA student. The admission assessment and plans were discussed and agreed upon with me. Brief history, patient presented to ED with O2 sat in the 70s. She was provided 3L NC and her O2 sat only improved to 83%. Therefore her supplement was increased to 4L NC but O2 sat was barely 90%. At that time, she started to get confused and somnolent so it was decided to put on her on mechanical ventilator for failure to protect her airway. While in ED, she received a one dose of lasix 40 mg IV and 1 gram of calcium gluconate. She was started on propofol drip for sedation but her pressure dropped to as low as 70/40 mmHg. As a result , she received a one time bolus of 500 ml NS and levophed was initiated for pressure support. She seemed fine after that but it was not long before her heart rate begun to drop in the 40s-50s. This time, she was taken off levo and put her on Dopamine and Versed Drip before she was sent to the unit for further treatment. Her current vent setting vent setting is VT 600 ml, RR 18, PEEP 5, and FiO2 of 75%. She is on 20mcg/hr on Versed and 4mcg/kg/hr on Dopamine drip.
--- NOTE | 2018-04-02 13:13 | CR ---
Chest: Portable supine view of the chest was obtained. Comparison: Prior chest x-ray performed earlier on the same day (11:01 AM) and prior chest x-ray from 04/01/19. Heart size is slightly enlarged. Endotracheal tube is seen with tip lying midway between the clavicle and aniya in satisfactory position. Nasogastric tube courses off the inferior edge of the stomach. Heart is enlarged. Increasing atelectasis within both lung bases. Stable pulmonary vessels. Impression: 1. Satisfactory position of tubes and catheters. 2. Increasing right basilar atelectasis from prior studies. Other findings within the chest remain stable. Diagnostic code #3
[2018-04-02] MEDS: Dextrose 5%-0.9% NaCl 1,000 ML IV SCH ×2 (15:22→23:20)
[2018-04-02] MEDS: LORazepam 2 MG/ML SDV IV PRN (20:24)
[2018-04-02] MEDS: Pregabalin 25 MG Cap PO SCH (21:21)
[2018-04-02] MEDS ORDERED: Insulin Aspart 100 Units/ML 3 ML Pen SUBCUT SCH (22:00)
[2018-04-03] MEDS: Insulin Aspart 100 Units/ML 3 ML Pen SUBCUT SCH ×4 (01:04→18:29)
[2018-04-03] MEDS: fentaNYL 2,500 MCG in Sodium Chloride 0.9% 200 ML IV SCH (02:09)
[2018-04-03] MEDS: LORazepam 2 MG/ML SDV IV PRN ×2 (02:15→09:12)
[2018-04-03] MEDS: Norepinephrine 4 MG in Dextrose 5% in Water 246 ML IV SCH ×2 (03:39)
[2018-04-03] MEDS: Albuterol/Ipratropium 3.0-0.5 MG/3 ML Neb Soln NEB PRN ×5 (03:51→22:12)
--- NOTE | 2018-04-03 06:53 | PCM.PN ---
- General Info Date of Service: 04/03/18 Admission Dx/Problem (Free Text): Admission Diagnosis/Problem Admission Diagnosis/Problem Respiratory failure with hypercapnia Subjective Update: Follow Up Functional Status: Reports: Pain Controlled, Urinating - Review of Systems General: Denies: Fever, Chills Systems Review Comment:: ROS limited: she is obtunded, intubated on mechanical ventilation. She desaturated in the 80s overnight so her FiO2 was increased to 100%. Her vitals seems to be fine this AM. Her repeat ABG shows a pH of 7.38, pCO2 of 47 and pO2 of 65. This morning she started to wake up and got agitated so versed was started along with fentanyl drip to maintain sedation/pain. - Patient Data Vitals - Most Recent: Last Vital Signs Temp 36.4 C 04/03/18 00:00 Pulse 69 04/03/18 06:00 Resp 18 04/03/18 06:00 BP 116/44 L 04/03/18 06:00 Pulse Ox 92 L 04/03/18 06:00 Weight - Most Recent: 113.534 kg I&O - Last 24 Hours: Intake & Output 04/02/18 04/02/18 04/03/18 14:59 22:59 06:59 Intake Total 695 319 8002 Output Total 1060 695 850 Balance -760 -925 696 Lab Results Last 24 Hours: Laboratory Results - last 24 hr 04/02/18 04/02/18 04/02/18 Range/Units 03:00 08:00 10:50 WBC (3.98-10.04) K/mm3 RBC (3.98-5.22) M/mm3 Hgb (11.2-15.7) gm/L Hct (34.1-44.9) % MCV (79.4-94.8) fl MCH (25.6-32.2) pg MCHC (32.2-35.5) g/dl RDW Std Deviation (36.4-46.3) fL Plt Count (182-369) K/mm3 MPV (9.4-12.3) fl Neut % (Auto) (34.0-71.1) % Lymph % (Auto) (19.3-51.7) % [place] % (Auto) (4.7-12.5) % Eos % (Auto) (0.7-5.8) Baso % (Auto) (0.1-1.2) % Neut # (Auto) (1.56-6.13) K/mm3 Lymph # (Auto) (1.18-3.74) K/mm3 [place] # (Auto) (0.24-0.36) K/mm3 Eos # (Auto) (0.04-0.36) K/mm3 Baso # (Auto) (0.01-0.08) K/mm3 Manual Slide Review PT 20.9 H (9.5-12.1) SECONDS INR 1.94 Puncture Site Lt radial ABG pH 7.37 (7.35-7.45) ABG pCO2 55.0 H (35.0-45.0) mmHg ABG pO2 67.0 L (80.0-100.0) mmHg ABG HCO3 30.8 H (22.0-26.0) meq/L ABG O2 Saturation 90.6 L (96.0-97.0) % ABG Base Excess 4.7 H (-2-2.0) Daljit Test Positive Positive A-a Gradient 344 mmHg O2 Delivery Device Ventilator FiO2 75.00 (21.00-100.00) % Tidal Volume 450.0 cc PEEP 5.0 cmH20 Sodium (136-145) mEq/L Potassium (3.5-5.1) mEq/L Chloride (98-107) mEq/L Carbon Dioxide (21-32) mEq/L Anion Gap (5-15) BUN (7-18) mg/dL Creatinine (0.55-1.02) mg/dL Est Cr Clr Drug Dosing mL/min Estimated GFR (MDRD) (>60) mL/min BUN/Creatinine Ratio (14-18) Glucose (83-115) mg/dL POC Glucose (83-110) mg/dL Calcium (8.5-10.1) mg/dL 04/02/18 04/02/18 04/02/18 Range/Units 10:53 15:40 15:40 WBC 12.13 H (3.98-10.04) K/mm3 RBC 3.81 L (3.98-5.22) M/mm3 Hgb 12.7 (11.2-15.7) gm/L Hct 41.0 (34.1-44.9) % MCV 107.6 H (79.4-94.8) fl MCH 33.3 H (25.6-32.2) pg MCHC 31.0 L (32.2-35.5) g/dl RDW Std Deviation 66.2 H (36.4-46.3) fL Plt Count 204 (182-369) K/mm3 MPV 11.6 (9.4-12.3) fl Neut % (Auto) 76.6 H (34.0-71.1) % Lymph % (Auto) 11.1 L (19.3-51.7) % [place] % (Auto) 10.6 (4.7-12.5) % Eos % (Auto) 1.0 (0.7-5.8) Baso % (Auto) 0.2 (0.1-1.2) % Neut # (Auto) 9.29 H (1.56-6.13) K/mm3 Lymph # (Auto) 1.35 (1.18-3.74) K/mm3 [place] # (Auto) 1.28 H (0.24-0.36) K/mm3 Eos # (Auto) 0.12 (0.04-0.36) K/mm3 Baso # (Auto) 0.03 (0.01-0.08) K/mm3 Manual Slide Review Abnormal smear PT (9.5-12.1) SECONDS INR Puncture Site ABG pH (7.35-7.45) ABG pCO2 (35.0-45.0) mmHg ABG pO2 (80.0-100.0) mmHg ABG HCO3 (22.0-26.0) meq/L ABG O2 Saturation (96.0-97.0) % ABG Base Excess (-2-2.0) Daljit Test A-a Gradient mmHg O2 Delivery Device FiO2 (21.00-100.00) % Tidal Volume cc PEEP cmH20 Sodium 140 (136-145) mEq/L Potassium 5.5 H (3.5-5.1) mEq/L Chloride 106 (98-107) mEq/L Carbon Dioxide 30 (21-32) mEq/L Anion Gap 9.5 (5-15) BUN 71 H (7-18) mg/dL Creatinine 2.1 H (0.55-1.02) mg/dL Est Cr Clr Drug Dosing 21.37 mL/min Estimated GFR (MDRD) 23 (>60) mL/min BUN/Creatinine Ratio 33.8 H (14-18) Glucose 170 H (83-115) mg/dL POC Glucose 169 H (83-110) mg/dL Calcium 8.3 L (8.5-10.1) mg/dL 04/02/18 04/03/18 04/03/18 Range/Units 18:04 00:52 06:15 WBC 9.24 (3.98-10.04) K/mm3 RBC 3.51 L (3.98-5.22) M/mm3 Hgb 11.9 (11.2-15.7) gm/L Hct 38.3 (34.1-44.9) % MCV 109.1 H (79.4-94.8) fl MCH 33.9 H (25.6-32.2) pg MCHC 31.1 L (32.2-35.5) g/dl RDW Std Deviation 68.0 H (36.4-46.3) fL Plt Count 179 L (182-369) K/mm3 MPV 11.5 (9.4-12.3) fl Neut % (Auto) 82.6 H (34.0-71.1) % Lymph % (Auto) 7.6 L (19.3-51.7) % [place] % (Auto) 8.4 (4.7-12.5) % Eos % (Auto) 1.0 (0.7-5.8) Baso % (Auto) 0.2 (0.1-1.2) % Neut # (Auto) 7.63 H (1.56-6.13) K/mm3 Lymph # (Auto) 0.70 L (1.18-3.74) K/mm3 [place] # (Auto) 0.78 H (0.24-0.36) K/mm3 Eos # (Auto) 0.09 (0.04-0.36) K/mm3 Baso # (Auto) 0.02 (0.01-0.08) K/mm3 Manual Slide Review PT (9.5-12.1) SECONDS INR Puncture Site ABG pH (7.35-7.45) ABG pCO2 (35.0-45.0) mmHg ABG pO2 (80.0-100.0) mmHg ABG HCO3 (22.0-26.0) meq/L ABG O2 Saturation (96.0-97.0) % ABG Base Excess (-2-2.0) Daljit Test A-a Gradient mmHg O2 Delivery Device FiO2 (21.00-100.00) % Tidal Volume cc PEEP cmH20 Sodium (136-145) mEq/L Potassium (3.5-5.1) mEq/L Chloride (98-107) mEq/L Carbon Dioxide (21-32) mEq/L Anion Gap (5-15) BUN (7-18) mg/dL Creatinine (0.55-1.02) mg/dL Est Cr Clr Drug Dosing mL/min Estimated GFR (MDRD) (>60) mL/min BUN/Creatinine Ratio (14-18) Glucose (83-115) mg/dL POC Glucose 208 H 244 H (83-110) mg/dL Calcium (8.5-10.1) mg/dL [place] Results Last 24 Hours: Microbiology 04/01/18 22:45 Aerobic Blood Culture - Preliminary Blood - Venous NO GROWTH AFTER 1 DAY Anaerobic Blood Culture - Preliminary NO GROWTH AFTER 1 DAY 04/01/18 23:00 Aerobic Blood Culture - Preliminary Blood - Venous - Lab Draw NO GROWTH AFTER 1 DAY Anaerobic Blood Culture - Preliminary NO GROWTH AFTER 1 DAY Med Orders - Current: Current Medications Acetaminophen (Tylenol) 650 mg PO Q4H PRN PRN Reason: Pain (Mild 1-3)/fever Hydrocodone Bitart/Acetaminophen ([place] 325-5 Mg) 1 tab PO Q4H PRN PRN Reason: Pain (moderate 4-6) Albuterol/Ipratropium (Duoneb 3.0-0.5 Mg/3 Ml) 3 ml NEB Q4H PRN PRN Reason: Shortness Of Breath/wheezing Last Admin: 04/03/18 03:51 Dose: 3 ml Bisacodyl (Dulcolax) 5 mg PO DAILY PRN PRN Reason: Constipation Diltiazem HCl (Cardizem Cd) 120 mg PO DAILY [facility] Docusate Sodium (Colace) 100 mg PO BID PRN PRN Reason: Constipation Enoxaparin Sodium (Lovenox) 30 mg SUBCUT DAILY [facility] Last Admin: 04/02/18 11:19 Dose: 30 mg Furosemide (Lasix) 120 mg PO DAILY [facility] Hydromorphone HCl (Dilaudid) 0.25 mg IVPUSH Q2H PRN PRN Reason: Pain (severe 7-10) Norepinephrine Bitartrate 4 mg (/ Dextrose/Water) 250 mls @ 7.5 mls/hr IV TITRATE [facility]; Protocol Last Titration: 04/03/18 05:04 Dose: 3 mcg/min, 11.25 mls/hr Dopamine HCl/Dextrose (Dopamine In D5w 400 Mg/250 Ml) 400 mg in 250 mls @ 62.936 mls/hr IV TITRATE [facility]; Protocol Last Titration: 04/02/18 12:08 Dose: 0 mcg/kg/min, 0 mls/hr Midazolam HCl 50 mg/ Sodium (Chloride) 50 mls @ 1.67 mls/hr IV TITRATE [facility]; Protocol Last Titration: 04/02/18 08:31 Dose: 0.01 mg/kg/hr, 0.83 mls/hr Sodium Chloride (Normal Saline) 500 mls @ 5 mls/hr IV DAILY [facility] Last Admin: 04/02/18 11:20 Dose: 5 mls/hr Promethazine HCl 12.5 mg/ (Sodium Chloride) 50.5 mls @ 100 mls/hr IV Q6H PRN PRN Reason: Nausea/Vomiting Dextrose/Sodium Chloride (Dextrose 5%-Normal Saline) 1,000 mls @ 125 mls/hr IV ASDIRECTED [facility] Last Admin: 04/02/18 23:20 Dose: 125 mls/hr Fentanyl 2,500 mcg/ Sodium (Chloride) 250 mls @ 1.8 mls/hr IV TITRATE [facility]; Protocol Last Titration: 04/03/18 06:00 Dose: 16 mcg/hr, 1.6 mls/hr Insulin Aspart (Novolog) 0 unit SUBCUT Q6HR [facility]; Protocol Last Admin: 04/03/18 06:50 Dose: 2 units Lisinopril (Prinivil) 20 mg PO DAILY [facility] Lorazepam (Ativan) 1 mg IV Q6H PRN PRN Reason: Anxiety Last Admin: 04/03/18 02:15 Dose: 1 mg Mometasone Furoate/Formoterol Fumar (Dulera 100-5 Mcg) 2 puff IH BID [facility] Non-Formulary Medication (Liraglutide) 1.2 mg SQ DAILY [facility] Ondansetron HCl (Zofran) 4 mg IV Q6H PRN PRN Reason: Nausea/Vomiting Pantoprazole Sodium (Protonix Iv) 40 mg IV Q12HR [facility] Last Admin: 04/02/18 21:21 Dose: 40 mg Polyethylene Glycol (Miralax) 17 gm PO DAILY PRN PRN Reason: Constipation Pregabalin (Lyrica) 50 mg PO TID [facility] Last Admin: 04/02/18 21:21 Dose: 50 mg Senna/Docusate Sodium (Senna Plus) 1 tab PO BID PRN PRN Reason: Constipation Warfarin Sodium (Coumadin) 2 mg PO DAILY@1800 [facility] Discontinued Medications Calcium Gluconate (Calcium Gluconate) 1 gm IV ONETIME STA Stop: 04/02/18 00:25 Last Admin: 04/02/18 00:38 Dose: 1 gm Furosemide (Lasix) 40 mg IVPUSH NOW ONE Stop: 04/01/18 22:33 Last Admin: 04/01/18 22:56 Dose: 40 mg Propofol (Diprivan 100 Ml) Confirm Administered Dose 100 mls @ as directed .ROUTE .STK-MED ONE Stop: 04/02/18 00:59 Last Admin: 04/02/18 02:36 Dose: Not Given Midazolam HCl 50 mg/ Sodium (Chloride) 50 mls @ 0.5 mls/hr IV TITRATE [facility]; Protocol Midazolam HCl 50 mg/ Sodium (Chloride) 50 mls @ 1.67 mls/hr IV TITRATE [facility]; Protocol Last Titration: 04/02/18 06:59 Dose: 0.11 mg/kg/hr, 10 mls/hr Sodium Chloride (Normal Saline) Confirm Administered Dose 50 mls @ as directed .ROUTE .STK-MED ONE Stop: 04/02/18 02:15 Last Admin: 04/02/18 02:37 Dose: Not Given Sodium Chloride (Normal Saline) 500 mls @ 1,000 mls/hr IV .BOLUS ONE Stop: 04/02/18 02:45 Last Admin: 04/02/18 02:37 Dose: 1,000 mls/hr Dopamine HCl/Dextrose (Dopamine In D5w 400 Mg/250 Ml) Confirm Administered Dose 400 mg in 250 mls @ as directed .ROUTE .STK-MED ONE Stop: 04/02/18 02:48 Last Admin: 04/02/18 02:50 Dose: Not Given Fentanyl 2,500 mcg/ Sodium (Chloride) 250 mls @ 11.16 mls/hr IV TITRATE [facility]; Protocol Last Titration: 04/03/18 01:30 Dose: 1.8 mcg/kg/hr, 20.1 mls/hr Midazolam HCl (Versed 1 Mg/Ml) 1 mg IVPUSH ONETIME ONE Stop: 04/02/18 02:13 Last Admin: 04/02/18 02:17 Dose: 1 mg Midazolam HCl (Versed 5 Mg/Ml) Confirm Administered Dose 50 mg .ROUTE .STK-MED ONE Stop: 04/02/18 02:14 Last Admin: 04/02/18 02:17 Dose: Not Given Midazolam HCl (Versed 1 Mg/Ml) 1 mg IVPUSH .STK-MED ONE Stop: 04/02/18 01:01 Vecuronium [place] (Vecuronium) 10 mg .ROUTE .STK-MED ONE Stop: 04/02/18 01:01 - Exam General: Obtunded HEENT: Pupils Equal, Pupils Reactive Neck: Supple, Trachea Midline, Other (OGT in placed) Lungs: Normal Respiratory Effort, Other (Adventitious sounds) Cardiovascular: Irregular Rhythm GI/Abdominal Exam: Normal Bowel Sounds, Soft, Non-Tender, No Organomegaly, No Distention, No Abnormal Bruit, No Mass (Female) Exam: Other (indwelling sow catheter) Extremities: Normal Inspection, Normal Range of Motion, Non-Tender, No Pedal Edema, Normal Capillary Refill Peripheral Pulses: 2+: Dorsalis Pedis (L), Dorsalis Pedis (R) Skin: Warm, Dry, Intact Psy/Mental Status: Other (sedated with TATUM of -3) Physical Findings Comments:: ROS limited by current vent status - Problem List Review Problem List Initiated/Reviewed/Updated: Yes - My Orders Last 24 Hours: My Active Orders 04/02/18 07:59 RT Ventilator, Adult [RC] ASDIRECTED 04/02/18 08:03 Arterial Line Insertion [OM.PC] Routine Arterial Line Management [OM.PC] Routine 04/02/18 08:09 Height and Weight [RC] 04 Up With Assistance [RC] ASDIRECTED Up ad Adela [RC] ASDIRECTED VTE/DVT Education [RC] DAILY Consult to Case Management [CONS] Routine Consult to Career Services Representative [CONS] Routine Consult to Valve Liner Rubber [CONS] Routine Consult to Spiritual Care [CONS] Routine Respiratory Care Assess and Treatment [CONS] Routine CULTURE SPUTUM + SMEAR [RM] Stat Acetaminophen [Tylenol] 650 mg PO Q4H PRN Acetaminophen/HYDROcodone [[place] 325-5 MG] 1 tab PO Q4H PRN Albuterol/Ipratropium [DuoNeb 3.0-0.5 MG/3 ML] 3 ml NEB Q4H PRN Bisacodyl [Dulcolax] 5 mg PO DAILY PRN Docusate Sodium [Colace] 100 mg PO BID PRN Docusate Sodium/Sennosides [Senna Plus] 1 tab PO BID PRN HYDROmorphone [Dilaudid] 0.25 mg IVPUSH Q2H PRN LORazepam [Ativan] 1 mg IV Q6H PRN Ondansetron [Zofran] 4 mg IV Q6H PRN Polyethylene Glycol 3350 [MiraLAX] 17 gm PO DAILY PRN Promethazine [Phenergan] 12.5 mg Sodium Chloride 0.9% [Normal Saline] 50 ml IV Q6H Resuscitation Status Routine 04/02/18 08:10 Cardiac Monitoring [RC] .PRN Intake and Output [RC] Q2HR 04/02/18 08:11 RT Aerosol Therapy [RC] ASDIRECTED 04/02/18 08:14 RASS Sedation Scale [RC] ASDIRECTED 04/02/18 09:00 Enoxaparin [Lovenox] 30 mg SUBCUT DAILY Pantoprazole [ProTONIX IV] 40 mg IV Q12HR Sodium Chloride 0.9% [Normal Saline] 500 ml IV DAILY 04/02/18 10:32 Blood Glucose Check, Bedside [RC] Q6HR 04/02/18 15:15 Dextrose 5%-0.9% NaCl [Dextrose 5%-Normal Saline] 1,000 ml IV ASDIRECTED 04/02/18 21:00 Pregabalin [Lyrica] 50 mg PO TID 04/02/18 Breakfast Nothing per Oral Now Diet [DIET] 04/03/18 00:00 Insulin Aspart [NovoLOG] See Protocol SUBCUT Q6HR 04/03/18 02:15 fentaNYL [Sublimaze] 2,500 mcg Sodium Chloride 0.9% [Normal Saline] 200 ml IV TITRATE 04/03/18 06:15 BASIC METABOLIC PANEL,BMP [CHEM] AM C-REACTIVE PROTEIN [CHEM] AM CBC WITH AUTO DIFF [HEME] AM MAGNESIUM [CHEM] AM 04/03/18 06:38 ABG [BLOOD GAS ARTERIAL] [BG] Urgent 04/03/18 09:00 Diltiazem [Cardizem CD] 120 mg PO DAILY Furosemide [Lasix] 120 mg PO DAILY Liraglutide 1.2 mg SQ DAILY Lisinopril [Prinivil] 20 mg PO DAILY Mometasone/Formoterol [Dulera 100-5 MCG] 2 puff IH BID 04/03/18 18:00 Warfarin [Coumadin] 2 mg PO DAILY@1800 04/04/18 05:11 BASIC METABOLIC PANEL,BMP [CHEM] AM CBC WITH AUTO DIFF [HEME] AM MAGNESIUM [CHEM] AM 04/05/18 05:11 BASIC METABOLIC PANEL,BMP [CHEM] AM CBC WITH AUTO DIFF [HEME] AM MAGNESIUM [CHEM] AM 04/06/18 05:11 BASIC METABOLIC PANEL,BMP [CHEM] AM MAGNESIUM [CHEM] AM - Plan Plan:: Assessment/Plan: Acute: Acute on Chronic Respiratory Failure: Combined hypoxemic and hypercapneic * Co-morbidities: HF, COPD, OHS, OHA and Morbid Obesity * Intubated in ED * RT consult * Vent settings adjusted; Current Vent Setting VT 450 ml, RR 18 PEEP 5 and FiO2 of 100% (with results of repeat ABG; will cut down RR to 15) * Goal for extubation- on hold, she is not ready yet * Sedation ordered with adjustment as needed * Art line placed * Continue Fentanyl and Versed drip * OG tube in place * Serial CXR as needed Heart Failure w/ Preserved EF 60-65% 03/07/2016 * BNP 4111 in ED; repeat level in AM * 2D Echo ordered-pending report * Received Lasix 40 mg IV push x 1 in ED; PRN Lasix * Will hold home lasix dose Hematuria, Improved * UA shows trace-intact occult blood and no RBC seen * Urinary catheter output shows gross hematuria * Manual irrigation TID * Continue anticoagulants Renal Failure, this is chronic * Cr 2.3, eGFR 21 in ED--> GFR about the same Stage 4 range * Baseline appears to be Cr 1.5-2.0 and eGFR 25-41 per records * Monitor Type 2 DM * Glucose 149 in ED--> BS in > 200s (she is on D5WNS for hydration) * Patient's home diabetic meds currently held * Currently on Accu-check QID with SA-ISS * She uses Victoza at home but we do not carry it; will start LA insulin BID Subtherapeutic INR * INR 1.72; daily INR * Resume Warfarin and bridged with Lovenox SubQ BID Resolved: S/p Hypotension * Likely 2/2 sedative agents and air trapping * Resolved after vent PEEP was cut down * Pressors as needed * Goal MAP > 65 * S/p Hyperkalemia * K 5.8 in ED--> 4.8 * Received calcium gluconate in ED * Monitor Chronic: COPD for which she is on 2-3L continuous O2 with titration of SpO2 in low 90s Previous intubation A-fib --> she is on coumadin and diltiazem therapy at home; held currently Heart Failure with Preserved EF 60-65% Type 2 DM HLD HTN SUSIE/OSH Urinary incontinence Morbid Obesity * LSM * Dietary consult Chronic back pain OA Plan: Admit to ICU Hold home meds Routine AM labs PT/OT consult SW/CM consult RT consult Dietitian consult DVT Prophylaxis: Lovenox GI Prophylaxis: Protonix Code status: Full Code PCP: Dr. Diana Haas
[2018-04-03] MEDS ORDERED: Furosemide 20 MG/2 ML VIAL IVPUSH ONE (08:00)
[2018-04-03] MEDS: Formoterol/Mometasone 100-5 MCG 8.8 GM Inhaler IH SCH ×2 (08:44→20:44)
[2018-04-03] MEDS: Pantoprazole 40 MG Vial IV SCH (08:48)
[2018-04-03] MEDS: Pregabalin 25 MG Cap PO SCH ×3 (08:48→21:28)
[2018-04-03] MEDS: Diltiazem 120 MG Cap.CD PO SCH (08:53)
[2018-04-03] MEDS: Dextrose 5%-0.9% NaCl 1,000 ML IV SCH ×2 (08:55→18:55)
[2018-04-03] MEDS ORDERED: Furosemide 40 MG Tab PO SCH (09:00)
[2018-04-03] MEDS: Sodium Chloride 0.9% 500 ML IV SCH (09:15)
[2018-04-03] MEDS: Liraglutide 1.2 MG SUBCUT SCH (09:15)
[2018-04-03] MEDS: Lisinopril 20 MG Tab PO SCH (10:29)
[2018-04-03] MEDS ORDERED: LORazepam 2 MG/ML SDV IVPUSH ONE ×2 (10:29→13:33)
[2018-04-03] MEDS: Enoxaparin 30 MG/0.3 ML Syringe SUBCUT SCH (10:38)
[2018-04-03] MEDS: Midazolam 50 MG in Sodium Chloride 0.9% 40 ML IV SCH ×2 (10:51→21:35)
[2018-04-03] MEDS ORDERED: Insulin Detemir 100 Units/ML 3 ML Pen SUBCUT ONE (13:09)
[2018-04-03] MEDS ORDERED: Enoxaparin 80 MG/0.8 ML Syringe SUBCUT ONE (13:14)
[2018-04-03] MEDS: guaiFENesin 600 MG Tab.ER PO SCH ×2 (16:02→21:28)
[2018-04-03] MEDS ORDERED: Saccharomyces Boulardii (Probiotic) 250 MG Cap PO STA (18:09)
[2018-04-03] MEDS ORDERED: Levofloxacin/Dextrose 5%-Water 750 MG in Premix Bag 1 BAG IV ONE (18:09)
[2018-04-03] MEDS: methylPREDNISolone Sodium Succinate 40 MG/1 ML SDV IVPUSH SCH (18:27)
[2018-04-03] MEDS: Bumetanide 1 MG/4 ML MDV IVPUSH SCH (18:28)
[2018-04-03] MEDS: Warfarin 2 MG Tab PO SCH (18:29)
[2018-04-03] MEDS ORDERED: Insulin Detemir 100 Units/ML 3 ML Pen SUBCUT SCH (21:00)
[2018-04-03] MEDS ORDERED: Enoxaparin 100 MG/1 ML Syringe SUBCUT SCH (21:00)
[2018-04-04] MEDS: Insulin Aspart 100 Units/ML 3 ML Pen SUBCUT SCH ×4 (01:20→18:29)
[2018-04-04] MEDS: methylPREDNISolone Sodium Succinate 40 MG/1 ML SDV IVPUSH SCH ×3 (01:30→17:35)
[2018-04-04] MEDS: Albuterol/Ipratropium 3.0-0.5 MG/3 ML Neb Soln NEB PRN ×5 (02:08→17:23)
[2018-04-04] MEDS: Dextrose 5%-0.9% NaCl 1,000 ML IV SCH ×2 (04:54→15:05)
--- NOTE | 2018-04-04 06:57 | PCM.PN ---
- General Info Date of Service: 04/04/18 Admission Dx/Problem (Free Text): Admission Diagnosis/Problem Admission Diagnosis/Problem Respiratory failure with hypercapnia Subjective Update: Follow Up Functional Status: Reports: Pain Controlled - Review of Systems Systems Review Comment:: Overnight her O2 sat dropped in the upper 80 her FiO2 was increased to 90% from 80 yesterday. She remains afebrile w/o leukocytosis. Her CRP is 6.9. Her urine out is good and it is now clear. Patient is still on mechanical ventilator sedated and intubated. - Patient Data Vitals - Most Recent: Last Vital Signs Temp 36.3 C 04/04/18 04:00 Pulse 71 04/04/18 06:00 Resp 13 04/04/18 05:00 BP 101/48 L 04/04/18 06:00 Pulse Ox 89 L 04/04/18 06:33 Weight - Most Recent: 113.534 kg I&O - Last 24 Hours: Intake & Output 04/03/18 04/03/18 04/04/18 14:59 22:59 06:59 Intake Total 1610 1439 Output Total 850 500 425 Balance -850 1110 1014 Lab Results Last 24 Hours: Laboratory Results - last 24 hr 04/03/18 04/03/18 04/03/18 Range/Units 06:15 06:15 06:15 Manual Slide Review Abnormal smear PT 18.6 H (9.5-12.1) SECONDS INR 1.72 Puncture Site ABG pH (7.35-7.45) ABG pCO2 (35.0-45.0) mmHg ABG pO2 (80.0-100.0) mmHg ABG HCO3 (22.0-26.0) meq/L ABG O2 Saturation (96.0-97.0) % ABG Base Excess (-2-2.0) Daljit Test A-a Gradient mmHg O2 Delivery Device FiO2 (21.00-100.00) % Tidal Volume cc PEEP cmH20 Pressure Support cmH2O Sodium 143 (136-145) mEq/L Potassium 4.8 (3.5-5.1) mEq/L Chloride 108 H (98-107) mEq/L Carbon Dioxide 30 (21-32) mEq/L Anion Gap 9.8 (5-15) BUN 64 H (7-18) mg/dL Creatinine 1.8 H (0.55-1.02) mg/dL Est Cr Clr Drug Dosing 24.93 mL/min Estimated GFR (MDRD) 28 (>60) mL/min BUN/Creatinine Ratio 35.6 H (14-18) Glucose 221 H (83-115) mg/dL POC Glucose (83-110) mg/dL Calcium 8.1 L (8.5-10.1) mg/dL Magnesium 2.2 (1.8-2.4) mg/dl C-Reactive Protein 13.6 H* (<1.0) mg/dL 04/03/18 04/03/18 04/03/18 Range/Units 06:38 11:20 12:14 Manual Slide Review PT (9.5-12.1) SECONDS INR Puncture Site Art Art ABG pH 7.38 7.37 (7.35-7.45) ABG pCO2 47.6 H 48.3 H (35.0-45.0) mmHg ABG pO2 65.0 L 75.0 L (80.0-100.0) mmHg ABG HCO3 27.4 H 27.3 H (22.0-26.0) meq/L ABG O2 Saturation 92.4 L 95.2 L (96.0-97.0) % ABG Base Excess 2.2 H 2.0 (-2-2.0) Daljit Test Positive A-a Gradient 516 504 mmHg O2 Delivery Device Ventilator Ventilator FiO2 0.00 L 100.00 (21.00-100.00) % Tidal Volume 450.0 cc PEEP 5.0 cmH20 Pressure Support 0.0 cmH2O Sodium (136-145) mEq/L Potassium (3.5-5.1) mEq/L Chloride (98-107) mEq/L Carbon Dioxide (21-32) mEq/L Anion Gap (5-15) BUN (7-18) mg/dL Creatinine (0.55-1.02) mg/dL Est Cr Clr Drug Dosing mL/min Estimated GFR (MDRD) (>60) mL/min BUN/Creatinine Ratio (-18) Glucose (83-115) mg/dL POC Glucose 217 H (83-110) mg/dL Calcium (8.5-10.1) mg/dL Magnesium (1.8-2.4) mg/dl C-Reactive Protein (<1.0) mg/dL 04/03/18 04/03/18 04/03/18 Range/Units 18:11 18:14 22:36 Manual Slide Review PT (9.5-12.1) SECONDS INR Puncture Site Art ABG pH 7.37 (7.35-7.45) ABG pCO2 48.5 H (35.0-45.0) mmHg ABG pO2 58.0 L (80.0-100.0) mmHg ABG HCO3 27.6 H (22.0-26.0) meq/L ABG O2 Saturation 89.2 L (96.0-97.0) % ABG Base Excess 2.3 H (-2-2.0) Daljit Test Positive A-a Gradient 394 mmHg O2 Delivery Device Ventilator FiO2 0.00 L (21.00-100.00) % Tidal Volume 450.0 cc PEEP 8.0 cmH20 Pressure Support cmH2O Sodium (136-145) mEq/L Potassium (3.5-5.1) mEq/L Chloride (98-107) mEq/L Carbon Dioxide (21-32) mEq/L Anion Gap (5-15) BUN (7-18) mg/dL Creatinine (0.55-1.02) mg/dL Est Cr Clr Drug Dosing mL/min Estimated GFR (MDRD) (>60) mL/min BUN/Creatinine Ratio (14-18) Glucose (83-115) mg/dL POC Glucose 171 H 184 H (83-110) mg/dL Calcium (8.5-10.1) mg/dL Magnesium (1.8-2.4) mg/dl C-Reactive Protein (<1.0) mg/dL 04/04/18 04/04/18 Range/Units 01:23 06:10 Manual Slide Review PT (9.5-12.1) SECONDS INR Puncture Site ABG pH (7.35-7.45) ABG pCO2 (35.0-45.0) mmHg ABG pO2 (80.0-100.0) mmHg ABG HCO3 (22.0-26.0) meq/L ABG O2 Saturation (96.0-97.0) % ABG Base Excess (-2-2.0) Daljit Test A-a Gradient mmHg O2 Delivery Device FiO2 (21.00-100.00) % Tidal Volume cc PEEP cmH20 Pressure Support cmH2O Sodium (136-145) mEq/L Potassium (3.5-5.1) mEq/L Chloride (98-107) mEq/L Carbon Dioxide (21-32) mEq/L Anion Gap (5-15) BUN (7-18) mg/dL Creatinine (0.55-1.02) mg/dL Est Cr Clr Drug Dosing mL/min Estimated GFR (MDRD) (>60) mL/min BUN/Creatinine Ratio (14-18) Glucose (83-115) mg/dL POC Glucose 220 H 243 H (83-110) mg/dL Calcium (8.5-10.1) mg/dL Magnesium (1.8-2.4) mg/dl C-Reactive Protein (<1.0) mg/dL Wale Results Last 24 Hours: Microbiology 04/01/18 22:45 Aerobic Blood Culture - Preliminary Blood - Venous NO GROWTH AFTER 2 DAYS Anaerobic Blood Culture - Preliminary NO GROWTH AFTER 2 DAYS 04/01/18 23:00 Aerobic Blood Culture - Preliminary Blood - Venous - Lab Draw NO GROWTH AFTER 2 DAYS Anaerobic Blood Culture - Preliminary NO GROWTH AFTER 2 DAYS Med Orders - Current: Current Medications Albuterol/Ipratropium (Duoneb 3.0-0.5 Mg/3 Ml) 3 ml NEB Q4H PRN PRN Reason: Shortness Of Breath/wheezing Last Admin: 04/04/18 06:32 Dose: 3 ml Bumetanide (Bumex) 1 mg IVPUSH BID [facility] Stop: 04/05/18 09:01 Last Admin: 04/03/18 18:28 Dose: 1 mg Diltiazem HCl (Cardizem Cd) 120 mg PO DAILY [facility] Last Admin: 04/03/18 08:53 Dose: Not Given Guaifenesin (Mucinex) 1,200 mg PO BID [facility] Last Admin: 04/03/18 21:28 Dose: Not Given Norepinephrine Bitartrate 4 mg (/ Dextrose/Water) 250 mls @ 7.5 mls/hr IV TITRATE [facility]; Protocol Last Titration: 04/03/18 13:38 Dose: 0 mcg/min, 0 mls/hr Dopamine HCl/Dextrose (Dopamine In D5w 400 Mg/250 Ml) 400 mg in 250 mls @ 62.936 mls/hr IV TITRATE [facility]; Protocol Last Titration: 04/02/18 12:08 Dose: 0 mcg/kg/min, 0 mls/hr Sodium Chloride (Normal Saline) 500 mls @ 5 mls/hr IV DAILY [facility] Last Admin: 04/03/18 09:15 Dose: 5 mls/hr Fentanyl 2,500 mcg/ Sodium (Chloride) 250 mls @ 1.8 mls/hr IV TITRATE [facility]; Protocol Last Titration: 04/04/18 05:26 Dose: 14 mcg/hr, 1.4 mls/hr Dextrose/Sodium Chloride (Dextrose 5%-Normal Saline) 1,000 mls @ 100 mls/hr IV ASDIRECTED [facility] Last Admin: 04/04/18 04:54 Dose: 100 mls/hr Midazolam HCl 50 mg/ Sodium (Chloride) 50 mls @ 2.26 mls/hr IV TITRATE [facility]; Protocol Last Titration: 04/04/18 06:14 Dose: 0.03 mg/kg/hr, 4 mls/hr Levofloxacin/Dextrose 750 mg/ (Premix) 150 mls @ 100 mls/hr IV Q48H [facility] Insulin Aspart (Novolog) 0 unit SUBCUT Q6HR [facility]; Protocol Last Admin: 04/04/18 06:11 Dose: 2 units Insulin Detemir (Levemir) 15 unit SUBCUT BID [facility] Lisinopril (Prinivil) 20 mg PO DAILY [facility] Last Admin: 04/03/18 10:29 Dose: Not Given Methylprednisolone Sodium Succinate (Solu-Medrol) 60 mg IVPUSH Q8H [facility] Last Admin: 04/04/18 01:30 Dose: 60 mg Mometasone Furoate/Formoterol Fumar (Dulera 100-5 Mcg) 2 puff IH BID [facility] Last Admin: 04/03/18 20:44 Dose: Not Given Liraglutide 1.2 Mg 0 each SUBCUT DAILY [facility] Last Admin: 04/03/18 09:15 Dose: Not Given Pregabalin (Lyrica) 50 mg PO TID [facility] Last Admin: 04/03/18 21:28 Dose: 50 mg Saccharomyces Boulardii (Florastor) 500 mg PO DAILY [facility] Warfarin Sodium (Coumadin) 2 mg PO DAILY@1800 [facility] Last Admin: 04/03/18 18:29 Dose: 2 mg Discontinued Medications Acetaminophen (Tylenol) 650 mg PO Q4H PRN PRN Reason: Pain (Mild 1-3)/fever Hydrocodone Bitart/Acetaminophen ([place] 325-5 Mg) 1 tab PO Q4H PRN PRN Reason: Pain (moderate 4-6) Bisacodyl (Dulcolax) 5 mg PO DAILY PRN PRN Reason: Constipation Calcium Gluconate (Calcium Gluconate) 1 gm IV ONETIME STA Stop: 04/02/18 00:25 Last Admin: 04/02/18 00:38 Dose: 1 gm Docusate Sodium (Colace) 100 mg PO BID PRN PRN Reason: Constipation Enoxaparin Sodium (Lovenox) 30 mg SUBCUT DAILY [facility] Last Admin: 04/03/18 10:38 Dose: 30 mg Enoxaparin Sodium (Lovenox) 100 mg SUBCUT Q12H [facility] Enoxaparin Sodium (Lovenox) 70 mg SUBCUT ONETIME ONE Stop: 04/03/18 13:15 Last Admin: 04/03/18 13:45 Dose: 70 mg Furosemide (Lasix) 40 mg IVPUSH NOW ONE Stop: 04/01/18 22:33 Last Admin: 04/01/18 22:56 Dose: 40 mg Furosemide (Lasix) 120 mg PO DAILY [facility] Last Admin: 04/03/18 08:53 Dose: Not Given Furosemide (Lasix) 20 mg IVPUSH NOW ONE Stop: 04/03/18 08:01 Last Admin: 04/03/18 07:42 Dose: 20 mg Hydromorphone HCl (Dilaudid) 0.25 mg IVPUSH Q2H PRN PRN Reason: Pain (severe 7-10) Propofol (Diprivan 100 Ml) Confirm Administered Dose 100 mls @ as directed .ROUTE .STK-MED ONE Stop: 04/02/18 00:59 Last Admin: 04/02/18 02:36 Dose: Not Given Midazolam HCl 50 mg/ Sodium (Chloride) 50 mls @ 0.5 mls/hr IV TITRATE [facility]; Protocol Midazolam HCl 50 mg/ Sodium (Chloride) 50 mls @ 1.67 mls/hr IV TITRATE [facility]; Protocol Last Titration: 04/02/18 06:59 Dose: 0.11 mg/kg/hr, 10 mls/hr Sodium Chloride (Normal Saline) Confirm Administered Dose 50 mls @ as directed .ROUTE .STK-MED ONE Stop: 04/02/18 02:15 Last Admin: 04/02/18 02:37 Dose: Not Given Sodium Chloride (Normal Saline) 500 mls @ 1,000 mls/hr IV .BOLUS ONE Stop: 04/02/18 02:45 Last Admin: 04/02/18 02:37 Dose: 1,000 mls/hr Dopamine HCl/Dextrose (Dopamine In D5w 400 Mg/250 Ml) Confirm Administered Dose 400 mg in 250 mls @ as directed .ROUTE .STK-MED ONE Stop: 04/02/18 02:48 Last Admin: 04/02/18 02:50 Dose: Not Given Midazolam HCl 50 mg/ Sodium (Chloride) 50 mls @ 1.67 mls/hr IV TITRATE [facility]; Protocol Last Titration: 04/02/18 08:31 Dose: 0.01 mg/kg/hr, 0.83 mls/hr Promethazine HCl 12.5 mg/ (Sodium Chloride) 50.5 mls @ 100 mls/hr IV Q6H PRN PRN Reason: Nausea/Vomiting Fentanyl 2,500 mcg/ Sodium (Chloride) 250 mls @ 11.16 mls/hr IV TITRATE [facility]; Protocol Last Titration: 04/03/18 01:30 Dose: 1.8 mcg/kg/hr, 20.1 mls/hr Dextrose/Sodium Chloride (Dextrose 5%-Normal Saline) 1,000 mls @ 125 mls/hr IV ASDIRECTED [facility] Last Admin: 04/02/18 23:20 Dose: 125 mls/hr Levofloxacin/Dextrose 750 mg/ (Premix) 150 mls @ 100 mls/hr IV ONETIME ONE Stop: 04/03/18 19:38 Last Admin: 04/03/18 18:35 Dose: 100 mls/hr Insulin Detemir (Levemir) 12 unit SUBCUT BID [facility] Last Admin: 04/03/18 22:37 Dose: 12 units Insulin Detemir (Levemir) 12 unit SUBCUT ONETIME ONE Stop: 04/03/18 13:10 Last Admin: 04/03/18 13:45 Dose: 12 units Lorazepam (Ativan) 1 mg IV Q6H PRN PRN Reason: Anxiety Last Admin: 04/03/18 09:12 Dose: 1 mg Lorazepam (Ativan) 2 mg IVPUSH ONETIME ONE Stop: 04/03/18 10:30 Last Admin: 04/03/18 10:34 Dose: 2 mg Lorazepam (Ativan) 2 mg IVPUSH ONETIME ONE Stop: 04/03/18 13:34 Last Admin: 04/03/18 13:41 Dose: 2 mg Midazolam HCl (Versed 1 Mg/Ml) 1 mg IVPUSH ONETIME ONE Stop: 04/02/18 02:13 Last Admin: 04/02/18 02:17 Dose: 1 mg Midazolam HCl (Versed 5 Mg/Ml) Confirm Administered Dose 50 mg .ROUTE .STK-MED ONE Stop: 04/02/18 02:14 Last Admin: 04/02/18 02:17 Dose: Not Given Midazolam HCl (Versed 1 Mg/Ml) 1 mg IVPUSH .STK-MED ONE Stop: 04/02/18 01:01 Ondansetron HCl (Zofran) 4 mg IV Q6H PRN PRN Reason: Nausea/Vomiting Pantoprazole Sodium (Protonix Iv) 40 mg IV Q12HR [facility] Last Admin: 04/03/18 08:48 Dose: 40 mg Polyethylene Glycol (Miralax) 17 gm PO DAILY PRN PRN Reason: Constipation Saccharomyces Boulardii (Florastor) 500 mg PO NOW STA Stop: 04/03/18 18:10 Last Admin: 04/03/18 18:28 Dose: 500 mg Senna/Docusate Sodium (Senna Plus) 1 tab PO BID PRN PRN Reason: Constipation Last Admin: 04/03/18 08:54 Dose: 1 tab Vecuronium [place] (Vecuronium) 10 mg .ROUTE .STK-MED ONE Stop: 04/02/18 01:01 - Exam General: Sedated HEENT: Pupils Equal, Pupils Reactive, Other (OGT in placed) Neck: Trachea Midline, No JVD, Other (short and thick) Lungs: Normal Respiratory Effort, Other (Adventitious sounds) Cardiovascular: Irregular Rhythm GI/Abdominal Exam: Normal Bowel Sounds, Soft, No Organomegaly, No Distention, No Abnormal Bruit, Other (Obese) (Female) Exam: Other (indwelling sow catheter) Back Exam: Other (deferred) Extremities: No Pedal Edema, Normal Capillary Refill Peripheral Pulses: 2+: Dorsalis Pedis (L), Dorsalis Pedis (R) Skin: Warm, Dry, Intact Physical Findings Comments:: Patient is still on mechanical ventilator sedated and intubated. - Problem List Review Problem List Initiated/Reviewed/Updated: Yes - My Orders Last 24 Hours: My Active Orders 04/03/18 08:15 Dextrose 5%-0.9% NaCl [Dextrose 5%-Normal Saline] 1,000 ml IV ASDIRECTED 04/03/18 09:00 Diltiazem [Cardizem CD] 120 mg PO DAILY Lisinopril [Prinivil] 20 mg PO DAILY Mometasone/Formoterol [Dulera 100-5 MCG] 2 puff IH BID Patient's Own Medication [Ptom] 0 each SUBCUT DAILY 04/03/18 10:45 Midazolam [Versed 5 MG/ML] 50 mg Sodium Chloride 0.9% [Normal Saline] 40 ml IV TITRATE 04/03/18 14:47 RT Chest Physiotherapy [RC] ASDIRECTED 04/03/18 15:29 CXR [Chest 1V Frontal] [CR] Routine 04/03/18 15:45 guaiFENesin [Mucinex] 1,200 mg PO BID 04/03/18 18:00 Warfarin [Coumadin] 2 mg PO DAILY@1800 methylPREDNISolone Sod Succ [Solu-MEDROL] 60 mg IVPUSH Q8H 04/03/18 18:15 Bumetanide [Bumex] 1 mg IVPUSH BID 04/04/18 05:42 BMP [BASIC METABOLIC PANEL,BMP] [CHEM] AM CBC WITH AUTO DIFF [HEME] AM CRP [C-REACTIVE PROTEIN] [CHEM] AM INR,PT,PROTHROMBIN TIME [COAG] AM MG [MAGNESIUM] [CHEM] AM PRO B-TYPE NATRIUR PEPT,BNPPRO [CHEM] Routine 04/04/18 06:56 ABG [BLOOD GAS ARTERIAL] [BG] Urgent 04/04/18 09:00 Insulin Detemir [Levemir] 15 unit SUBCUT BID Saccharomyces Boulardii [Florastor] 500 mg PO DAILY 04/05/18 05:11 BMP [BASIC METABOLIC PANEL,BMP] [CHEM] AM CBC WITH AUTO DIFF [HEME] AM CRP [C-REACTIVE PROTEIN] [CHEM] AM INR,PT,PROTHROMBIN TIME [COAG] AM MG [MAGNESIUM] [CHEM] AM 04/05/18 07:00 Chest 1V Frontal [CR] DAILY 04/05/18 18:00 Levofloxacin/Dextrose 5%-Water [Levaquin in D5W 750 MG/150 ML] 750 mg Premix Bag 1 bag IV Q48H 04/06/18 05:11 BMP [BASIC METABOLIC PANEL,BMP] [CHEM] AM CBC WITH AUTO DIFF [HEME] AM CRP [C-REACTIVE PROTEIN] [CHEM] AM INR,PT,PROTHROMBIN TIME [COAG] AM MG [MAGNESIUM] [CHEM] AM 04/06/18 07:00 Chest 1V Frontal [CR] DAILY 04/07/18 05:11 BMP [BASIC METABOLIC PANEL,BMP] [CHEM] AM CBC WITH AUTO DIFF [HEME] AM CRP [C-REACTIVE PROTEIN] [CHEM] AM INR,PT,PROTHROMBIN TIME [COAG] AM MG [MAGNESIUM] [CHEM] AM 04/07/18 07:00 Chest 1V Frontal [CR] DAILY 04/08/18 05:11 BMP [BASIC METABOLIC PANEL,BMP] [CHEM] AM CBC WITH AUTO DIFF [HEME] AM CRP [C-REACTIVE PROTEIN] [CHEM] AM INR,PT,PROTHROMBIN TIME [COAG] AM MG [MAGNESIUM] [CHEM] AM 04/08/18 07:00 Chest 1V Frontal [CR] DAILY 04/09/18 07:00 Chest 1V Frontal [CR] DAILY - Plan Plan:: Assessment/Plan: Acute: Acute on Chronic Respiratory Failure: Combined hypoxemic and hypercapneic * Co-morbidities: HF, COPD, OHS, OHA and Morbid Obesity * Intubated in ED * RT consult * Vent settings adjusted; Current Vent Setting AC VT 450 ml, RR 12 PEEP 8 and FiO2 of 90% * Goal for extubation- maybe tomorrow * Sedation ordered with adjustment as needed * Art line placed * Continue Fentanyl and Versed drip * OG tube in place * Serial CXR as needed Aspiration Pneumonia * RT has been getting thick creamy yellowish respiratory secretions/sputum on suctioning * I cannot say for sure that this is ventilator related * CXR shows bilateral atelectasis with possible pleural effusions * She is currently on IV Levaquin 750 mg Daily, IV Solumedrol 60 mg Q8H, Mucinex 1200 mg BID and Douneb 3 ml Q4HPRN Heart Failure w/ Preserved EF 60-65% 03/07/2016 * BNP 4111 in ED--> now 1978 * 2D Echo ordered-pending report * Received Lasix 40 mg IV push x 1 in ED; Continue PRN Lasix * Will hold home lasix dose Type 2 DM * Glucose 149 in ED--> BS in > 200s (she is on D5WNS for hydration) * Patient's home diabetic meds currently held * Currently on Accu-check QID with SA-ISS * She uses Victoza at home but we do not carry it; will increase dose of LA insulin BID Subtherapeutic INR * INR 1.72--> 1.84 * Resume Warfarin and bridged with Lovenox SubQ BID Resolved: S/p Hypotension * Likely 2/2 sedative agents and air trapping * Resolved after vent PEEP was cut down * Pressors as needed * Goal MAP > 65 * S/p Hyperkalemia * K 5.8 in ED--> 4.8 * Received calcium gluconate in ED * Monitor S/p Hematuria, Improved * UA shows trace-intact occult blood and no RBC seen * Urinary catheter output shows gross hematuria * Manual irrigation TID * Continue anticoagulants Chronic: COPD for which she is on 2-3L continuous O2 with titration of SpO2 in low 90s Previous intubation A-fib --> she is on coumadin and diltiazem therapy at home; held currently Heart Failure with Preserved EF 60-65% Type 2 DM HLD HTN SUSIE/OSH Urinary incontinence Morbid Obesity * LSM * Dietary consult Chronic back pain OA Plan: She is stable and now off levophed drip. She respond to simple instructions and moves her extremities with light sedation or sedation vacation Routine AM labs Cancel PT/OT consult SW/CM consult RT following Dietitian consult DVT Prophylaxis: Lovenox/Warfarin GI Prophylaxis: Protonix Code status: Full Code PCP: Dr. Diana Haas Meet up with her and son (interim DPOA) this morning. This was my first encounter with them since patient was admitted. I updated them about her diagnoses, lab results, clinical progress and treatment plan. I asked her son if he knew she did not want intubation and he states, yes. I told him that last time I took care of her she told me verbally that she did not want to be intubated. However, I could not readily remove her from the vent since we do not have a copy of her living and confirm her wishes. Her family was made aware that if she has something in writing i.e. advanced directive or living will and in it says no intubation then I am obligated to follow it. Since we do not have a copy of her living will, her family had asked if we could keep her on the vent until tomorrow and they will bring in a copy of her living will or advanced directives from home. I agreed with this decision and will inform SW/CM tomorrow about this plan.
[2018-04-04] MEDS ORDERED: Insulin Detemir 100 Units/ML 3 ML Pen SUBCUT SCH (09:00)
[2018-04-04] MEDS ORDERED: Saccharomyces Boulardii (Probiotic) 250 MG Cap PO SCH (09:00)
[2018-04-04] MEDS: Liraglutide 1.2 MG SUBCUT SCH (09:33)
[2018-04-04] MEDS: Pregabalin 25 MG Cap PO SCH ×2 (09:41→14:31)
[2018-04-04] MEDS: guaiFENesin 600 MG Tab.ER PO SCH (09:41)
[2018-04-04] MEDS: Diltiazem 120 MG Cap.CD PO SCH (09:42)
[2018-04-04] MEDS: Lisinopril 20 MG Tab PO SCH (09:42)
[2018-04-04] MEDS: Sodium Chloride 0.9% 500 ML IV SCH (09:47)
[2018-04-04] MEDS: Bumetanide 1 MG/4 ML MDV IVPUSH SCH (09:47)
--- NOTE | 2018-04-04 10:49 | CR ---
Chest: Portable view of the chest was obtained. Comparison: Prior chest x-ray at 04/03/18. Heart is slightly enlarged. Mediastinum is widened which is stable. Satisfactory position of endotracheal tube remains. Distal nasogastric tube is not seen due to light technique. Probable pleural effusions remain. Slight atelectasis is noted within the right base. Left retrocardiac region is poorly penetrated which likely represents atelectasis but difficult to completely exclude aspiration or pneumonia. Pulmonary vessels remain minimally increased which are stable. Impression: 1. Satisfactory position of endotracheal tube. 2. Distal nasogastric tube not seen due to light technique. 3. Other findings as noted above are felt to be fairly stable from recent chest x-ray. Diagnostic code #3
--- NOTE | 2018-04-04 10:49 | CR ---
Chest: Frontal view of the chest was obtained. Comparison: Prior chest x-ray of 04/02/18. Haziness is seen within both lung bases most likely representing pleural effusions. Pulmonary vessels appear to be somewhat congested. Difficult to exclude basilar areas of pneumonia or aspiration. Heart is slightly enlarged. Mediastinum is widened. Endotracheal tube is seen which lies above the aniya in satisfactory position. Nasogastric tube courses inferior to the diaphragm into the stomach which is also satisfactory. Impression: 1. Slightly worsening chest which is felt suspicious for bilateral pleural effusions. Pulmonary vascular congestion is also noted. 2. Difficult to exclude areas of pneumonia or aspiration within the left base. 3. Satisfactory position of endotracheal and nasogastric tube. Diagnostic code #3
[2018-04-04] MEDS: Midazolam 50 MG in Sodium Chloride 0.9% 40 ML IV SCH (12:35)
[2018-04-04] MEDS: fentaNYL 2,500 MCG in Sodium Chloride 0.9% 200 ML IV SCH (14:30)
[2018-04-04] MEDS ORDERED: Enoxaparin 60 MG/0.6 ML Syringe SUBCUT ONE (15:49)
[2018-04-04] MEDS ORDERED: Pantoprazole 40 MG Vial IVPUSH ONE (17:26)
--- NOTE | 2018-04-04 17:44 | PCM.SN ---
- Free Text/Narrative Note: Late afternoon, her nurse alerted me that patient O2 sat was dropping in the 70s to low 80s while on sedation vacation. So immediately, I came to the unit to examine her. At bedside, she looked comfortable and calm but her O2 sat was hovering in the low 80s. At that time, her FiO2 was already maxed out to 100% by RT. She was at 90% earlier today. Her PEEP was already on 8 BUT I had no choice but to go up to 10 to increase her O2 level. She did response briefly increasing her level to 85-86% but then fluctuates back and forth in the low 80s. We went ahead and gave her nebs, performed routine suctioning to remove mucous plugs or obstructing respiratory secretions as well added 1 gram of IV Magnesium Sulfate. Thereafter, we immediately called the family and told them that they needed to come in and make a decision as far what to do with her should she continue to desaturate. After several attempts, we finally got ahold of her son, Jose. Informed that her mom took a turn for the worse late this afternoon and they needed to decide what they want us to do. Again, w/o the living will or advanced directive we were not able to accurately follow patient's wishes. I expressed strongly my opinion that this could be it for her, indicating an impeding and at this point they would have to decide whether she should be made comfortable. However after brief discourse with his family, they decided that they want to give her a fighting chance and that means transfer to [facility] for upper level of care. I mentioned that given the complexity of her presenting illness, it is likely that she may not do well even if she goes to [facility]. But we followed family's request and so we phoned [facility] and got a hold of Dr. Doty , [facility] Asst. I relayed and explained the patient's clinical status and progress with him along with her significant co-morbidities. After our brief discussions, he accepted the patient under his services. Thereafter, we called back Jose and let him know that his mom will be heading to [facility] in [facility] for upper level of care.
[2018-04-04 18:10] VITALS: BP 112/54
[2018-04-04] MEDS ORDERED: Piperacillin/Tazobactam 4.5 GM in Sodium Chloride 0.9% 100 ML IV ONE (18:15)
[2018-04-04] MEDS: Warfarin 2 MG Tab PO SCH (18:29)
--- NOTE | 2018-04-04 18:37 | PCM.DCSUM1 ---
Discharge Summary - Hospital Course Brief History: This is a 75 y/o female with PMHx significant for COPD for which she is on 2-3L continuous O2 with titration of SpO2 in low 90s, previous intubation, afib, heart failure, Type 2 DM, HLD, HTN, SUSIE, OSH, urinary incontinence, obesity, chronic back pain, OA, who comes in for worsening dypsnea. Her work-up in the ED included CBC that was remarkable for RBC 3.87, MCV 109.8, 78% neutrophils. CMP remarkable for potassium 5.8, CO2 33, BUN 72, Cr 2.3, eGFR 21, glucose 149, Tbili 1.1. Lactic acid was 0.6. BNP was elevated at 4111. Troponin < 0.017. Multiple ABGs performed with increasing PCO2. Initial CXR ordered in ED read as cardiomegaly and mild chronic appearing pulmonary vascular congestion, parenchymal density within the right lung base mostly due to atelectasis although difficult to exclude small area of pneumonia , and mild left basilar atelectasis. Patient was subsequently intubated in ED. Patient is unable to provide any history at this point secondary to being intubated and sedated. Per ED notes, patient reported that she had dyspnea at rest for the past 3 days. She also reported nasal congestion for the past few days. She denied wheezing, cough, fever, orthopnea, chest pain, palpitations, nausea, vomiting, constipation, diarrhea, or urinary symptoms. The patient reported that she had not taken any home medications for her symptoms. Of note , per ED records, she has not seen a box toe buffer for over a year. Her Keeler Polygraph Operator is Dr. Robins, who she has not seen for over a year but believes that she has an appointment to see him this coming June or July. She is subsequently admitted to ICU. She is a former smoker and quit in 1994. He is a full code. PCP is Dr. Diana Haas. Diagnosis: Stroke: No Modified Norris Scale: No Symptoms at All Modified [place] Scale Score: 0 - Discharge Data Discharge Date: 04/04/18 Discharge Disposition: DC/Tfer to Acute Hospital 02 Condition: Critical - Patient Summary/Data Operative Procedure(s) Performed: ET Intubation Complications: None Consults: None Hospital Course: Patient was primarily admitted for acute on chronic combined respiratory failure. She carries advanced co-morbidities that complicate her treatment while she was in the unit. We did what we can to take good care of her but unfortunately she started to get worse. We expressed our concerns about her poor overall prognosis at this point but her family wanted to give her a fighting chance and that means sending her to [place] for upper level of care. Her family was notified about the transfer. Patient left immediately via ground for [facility] in [place] once transportation arrived. - Patient Instructions Other/Special Instructions: - Transfer to [facility] under the servives of Dr. Eddy, CC/Linux System Engineer - Discharge Plan *PRESCRIPTION DRUG MONITORING PROGRAM REVIEWED*: Not Applicable *COPY OF PRESCRIPTION DRUG MONITORING REPORT IN PATIENT ALTAF: Not Applicable Home Medications: Home Meds Lisinopril 20 mg PO DAILY 05/01/15 [History] Insulin Glargine,Hum.Rec.Anlog [Toujeo Solostar] 78 unit SQ DAILY 03/06/16 [ History] Liraglutide [Victoza] 1.2 mg SQ DAILY 03/07/16 [History] Furosemide 120 mg PO DAILY 03/22/16 [History] Warfarin [Coumadin] 2 mg PO DAILY 03/22/16 [History] Diltiazem [Cardizem CD] 120 mg PO DAILY 08/05/16 [History] Fluticasone/Vilanterol [Breo Ellipta 100-25 MCG Inhalation Kit] 1 inh INH DAILY 04/02/18 [History] Pregabalin [Lyrica] 50 mg PO TID 04/02/18 [History] guaiFENesin [Mucinex] 1,200 mg PO BID 04/02/18 [History] Referrals: Diana Haas MD [Primary Care Provider] - - Discharge Summary/Plan Comment DC Time >30 min.: Yes (45 mins) Discharge Summary/Plan Comment: Transfer to [facility] under the services of Dr. Grewal, strategic partnership manager - General Info Date of Service: 04/04/18 Admission Dx/Problem (Free Text: Admission Diagnosis/Problem Admission Diagnosis/Problem Respiratory failure with hypercapnia Subjective Update: Follow Up Functional Status: Reports: Pain Controlled. Denies: Tolerating Diet, Ambulating, Urinating - Review of Systems General: Denies: Fever, Chills Pulmonary: Reports: Other (Adventitious sounds) Systems Review Comment: Unable to obtain ROS patient is sedated and intubated on mechanical vent - Patient Data Vitals - Most Recent: Last Vital Signs Temp 36.2 C 04/04/18 18:00 Pulse 61 04/04/18 18:00 Resp 16 04/04/18 18:00 BP 112/54 L 04/04/18 18:00 Pulse Ox 88 L 04/04/18 18:00 Weight - Most Recent: 113.534 kg I&O - Last 24 hours: Intake & Output 04/04/18 04/04/18 04/04/18 06:59 14:59 22:59 Intake Total 1439 1722 Output Total 425 950 210 Balance 1014 -950 1512 Lab Results - Last 24 hrs: Laboratory Results - last 24 hr 04/03/18 04/04/18 04/04/18 Range/Units 22:36 01:23 05:42 WBC (3.98-10.04) K/mm3 RBC (3.98-5.22) M/mm3 Hgb (11.2-15.7) gm/L Hct (34.1-44.9) % MCV (79.4-94.8) fl MCH (25.6-32.2) pg MCHC (32.2-35.5) g/dl RDW Std Deviation (36.4-46.3) fL Plt Count (182-369) K/mm3 MPV (9.4-12.3) fl Neut % (Auto) (34.0-71.1) % Lymph % (Auto) (19.3-51.7) % Long % (Auto) (4.7-12.5) % Eos % (Auto) (0.7-5.8) Baso % (Auto) (0.1-1.2) % Neut # (Auto) (1.56-6.13) K/mm3 Lymph # (Auto) (1.18-3.74) K/mm3 Long # (Auto) (0.24-0.36) K/mm3 Eos # (Auto) (0.04-0.36) K/mm3 Baso # (Auto) (0.01-0.08) K/mm3 Manual Slide Review PT 19.8 H (9.5-12.1) SECONDS INR 1.84 Puncture Site ABG pH (7.35-7.45) ABG pCO2 (35.0-45.0) mmHg ABG pO2 (80.0-100.0) mmHg ABG HCO3 (22.0-26.0) meq/L ABG O2 Saturation (96.0-97.0) % ABG Base Excess (-2-2.0) Daljit Test A-a Gradient mmHg O2 Delivery Device FiO2 (21.00-100.00) % PEEP cmH20 Sodium (136-145) mEq/L Potassium (3.5-5.1) mEq/L Chloride (98-107) mEq/L Carbon Dioxide (21-32) mEq/L Anion Gap (5-15) BUN (7-18) mg/dL Creatinine (0.55-1.02) mg/dL Est Cr Clr Drug Dosing mL/min Estimated GFR (MDRD) (>60) mL/min BUN/Creatinine Ratio (14-18) Glucose (83-115) mg/dL POC Glucose 184 H 220 H (83-110) mg/dL Calcium (8.5-10.1) mg/dL Magnesium (1.8-2.4) mg/dl C-Reactive Protein (<1.0) mg/dL NT-Pro-B Natriuret Pep (0-125) pg/mL 04/04/18 04/04/18 04/04/18 Range/Units 05:42 05:42 05:42 WBC 8.60 (3.98-10.04) K/mm3 RBC 3.43 L (3.98-5.22) M/mm3 Hgb 11.7 (11.2-15.7) gm/L Hct 37.6 (34.1-44.9) % MCV 109.6 H (79.4-94.8) fl MCH 34.1 H (25.6-32.2) pg MCHC 31.1 L (32.2-35.5) g/dl RDW Std Deviation 68.5 H (36.4-46.3) fL Plt Count 133 L (182-369) K/mm3 MPV 11.8 (9.4-12.3) fl Neut % (Auto) 94.7 H (34.0-71.1) % Lymph % (Auto) 3.3 L (19.3-51.7) % Long % (Auto) 1.6 L (4.7-12.5) % Eos % (Auto) 0.1 L (0.7-5.8) Baso % (Auto) 0.1 (0.1-1.2) % Neut # (Auto) 8.14 H (1.56-6.13) K/mm3 Lymph # (Auto) 0.28 L (1.18-3.74) K/mm3 Long # (Auto) 0.14 L (0.24-0.36) K/mm3 Eos # (Auto) 0.01 L (0.04-0.36) K/mm3 Baso # (Auto) 0.01 (0.01-0.08) K/mm3 Manual Slide Review Abnormal smear PT (9.5-12.1) SECONDS INR Puncture Site ABG pH (7.35-7.45) ABG pCO2 (35.0-45.0) mmHg ABG pO2 (80.0-100.0) mmHg ABG HCO3 (22.0-26.0) meq/L ABG O2 Saturation (96.0-97.0) % ABG Base Excess (-2-2.0) Daljit Test A-a Gradient mmHg O2 Delivery Device FiO2 (21.00-100.00) % PEEP cmH20 Sodium 144 (136-145) mEq/L Potassium 4.7 (3.5-5.1) mEq/L Chloride 108 H (98-107) mEq/L Carbon Dioxide 27 (21-32) mEq/L Anion Gap 13.7 (5-15) BUN 57 H (7-18) mg/dL Creatinine 1.8 H (0.55-1.02) mg/dL Est Cr Clr Drug Dosing 24.93 mL/min Estimated GFR (MDRD) 28 (>60) mL/min BUN/Creatinine Ratio 31.7 H (14-18) Glucose 253 H (83-115) mg/dL POC Glucose (83-110) mg/dL Calcium 8.2 L (8.5-10.1) mg/dL Magnesium 1.8 (1.8-2.4) mg/dl C-Reactive Protein 9.9 H* (<1.0) mg/dL NT-Pro-B Natriuret Pep 1979 H (0-125) pg/mL 07/15/18 07/15/18 07/15/18 Range/Units 06:10 06:56 09:46 WBC (3.98-10.04) K/mm3 RBC (3.98-5.22) M/mm3 Hgb (11.2-15.7) gm/L Hct (34.1-44.9) % MCV (79.4-94.8) fl MCH (25.6-32.2) pg MCHC (32.2-35.5) g/dl RDW Std Deviation (36.4-46.3) fL Plt Count (182-369) K/mm3 MPV (9.4-12.3) fl Neut % (Auto) (34.0-71.1) % Lymph % (Auto) (19.3-51.7) % Long % (Auto) (4.7-12.5) % Eos % (Auto) (0.7-5.8) Baso % (Auto) (0.1-1.2) % Neut # (Auto) (1.56-6.13) K/mm3 Lymph # (Auto) (1.18-3.74) K/mm3 Long # (Auto) (0.24-0.36) K/mm3 Eos # (Auto) (0.04-0.36) K/mm3 Baso # (Auto) (0.01-0.08) K/mm3 Manual Slide Review PT (9.5-12.1) SECONDS INR Puncture Site Art ABG pH 7.32 L (7.35-7.45) ABG pCO2 50.1 H (35.0-45.0) mmHg ABG pO2 55.0 L (80.0-100.0) mmHg ABG HCO3 25.3 (22.0-26.0) meq/L ABG O2 Saturation 86.1 L (96.0-97.0) % ABG Base Excess -0.6 (-2-2.0) Daljit Test Positive A-a Gradient 458 mmHg O2 Delivery Device Ventilator FiO2 0.00 L (21.00-100.00) % PEEP 8.0 cmH20 Sodium (136-145) mEq/L Potassium (3.5-5.1) mEq/L Chloride (98-107) mEq/L Carbon Dioxide (21-32) mEq/L Anion Gap (5-15) BUN (7-18) mg/dL Creatinine (0.55-1.02) mg/dL Est Cr Clr Drug Dosing mL/min Estimated GFR (MDRD) (>60) mL/min BUN/Creatinine Ratio (14-18) Glucose (83-115) mg/dL POC Glucose 243 H 270 H (83-110) mg/dL Calcium (8.5-10.1) mg/dL Magnesium (1.8-2.4) mg/dl C-Reactive Protein (<1.0) mg/dL NT-Pro-B Natriuret Pep (0-125) pg/mL 04/04/18 04/04/18 Range/Units 12:11 18:23 WBC (3.98-10.04) K/mm3 RBC (3.98-5.22) M/mm3 Hgb (11.2-15.7) gm/L Hct (34.1-44.9) % MCV (79.4-94.8) fl MCH (25.6-32.2) pg MCHC (32.2-35.5) g/dl RDW Std Deviation (36.4-46.3) fL Plt Count (182-369) K/mm3 MPV (9.4-12.3) fl Neut % (Auto) (34.0-71.1) % Lymph % (Auto) (19.3-51.7) % Long % (Auto) (4.7-12.5) % Eos % (Auto) (0.7-5.8) Baso % (Auto) (0.1-1.2) % Neut # (Auto) (1.56-6.13) K/mm3 Lymph # (Auto) (1.18-3.74) K/mm3 Long # (Auto) (0.24-0.36) K/mm3 Eos # (Auto) (0.04-0.36) K/mm3 Baso # (Auto) (0.01-0.08) K/mm3 Manual Slide Review PT (9.5-12.1) SECONDS INR Puncture Site ABG pH (7.35-7.45) ABG pCO2 (35.0-45.0) mmHg ABG pO2 (80.0-100.0) mmHg ABG HCO3 (22.0-26.0) meq/L ABG O2 Saturation (96.0-97.0) % ABG Base Excess (-2-2.0) Daljit Test A-a Gradient mmHg O2 Delivery Device FiO2 (21.00-100.00) % PEEP cmH20 Sodium (136-145) mEq/L Potassium (3.5-5.1) mEq/L Chloride (98-107) mEq/L Carbon Dioxide (21-32) mEq/L Anion Gap (5-15) BUN (7-18) mg/dL Creatinine (0.55-1.02) mg/dL Est Cr Clr Drug Dosing mL/min Estimated GFR (MDRD) (>60) mL/min BUN/Creatinine Ratio (14-18) Glucose (83-115) mg/dL POC Glucose 275 H 266 H (83-110) mg/dL Calcium (8.5-10.1) mg/dL Magnesium (1.8-2.4) mg/dl C-Reactive Protein (<1.0) mg/dL NT-Pro-B Natriuret Pep (0-125) pg/mL ANISA Results - Last 24 hrs: Microbiology 04/01/18 22:45 Aerobic Blood Culture - Preliminary Blood - Venous NO GROWTH AFTER 2 DAYS Anaerobic Blood Culture - Preliminary NO GROWTH AFTER 2 DAYS 04/01/18 23:00 Aerobic Blood Culture - Preliminary Blood - Venous - Lab Draw NO GROWTH AFTER 2 DAYS Anaerobic Blood Culture - Preliminary NO GROWTH AFTER 2 DAYS Med Orders - Current: Current Medications Albuterol/Ipratropium (Duoneb 3.0-0.5 Mg/3 Ml) 3 ml NEB Q4H PRN PRN Reason: Shortness Of Breath/wheezing Last Admin: 04/04/18 17:23 Dose: 3 ml Bumetanide (Bumex) 1 mg IVPUSH BID [facility] Stop: 04/05/18 09:01 Last Admin: 04/04/18 09:47 Dose: 1 mg Diltiazem HCl (Cardizem Cd) 120 mg PO DAILY [facility] Last Admin: 04/04/18 09:42 Dose: 120 mg Enoxaparin Sodium (Lovenox) 100 mg SUBCUT Q12H [facility] Guaifenesin (Mucinex) 1,200 mg PO BID [facility] Last Admin: 04/04/18 09:41 Dose: 1,200 mg Norepinephrine Bitartrate 4 mg (/ Dextrose/Water) 250 mls @ 7.5 mls/hr IV TITRATE [facility]; Protocol Last Titration: 04/03/18 13:38 Dose: 0 mcg/min, 0 mls/hr Dopamine HCl/Dextrose (Dopamine In D5w 400 Mg/250 Ml) 400 mg in 250 mls @ 62.936 mls/hr IV TITRATE [facility]; Protocol Last Titration: 04/02/18 12:08 Dose: 0 mcg/kg/min, 0 mls/hr Sodium Chloride (Normal Saline) 500 mls @ 5 mls/hr IV DAILY [facility] Last Admin: 04/04/18 09:47 Dose: 5 mls/hr Fentanyl 2,500 mcg/ Sodium (Chloride) 250 mls @ 1.8 mls/hr IV TITRATE [facility]; Protocol Last Titration: 04/04/18 17:56 Dose: 0 mcg/hr, 0 mls/hr Dextrose/Sodium Chloride (Dextrose 5%-Normal Saline) 1,000 mls @ 100 mls/hr IV ASDIRECTED [facility] Last Admin: 04/04/18 15:05 Dose: 100 mls/hr Midazolam HCl 50 mg/ Sodium (Chloride) 50 mls @ 2.26 mls/hr IV TITRATE [facility]; Protocol Last Titration: 04/04/18 17:56 Dose: 0 mg/kg/hr, 0 mls/hr Levofloxacin/Dextrose 750 mg/ (Premix) 150 mls @ 100 mls/hr IV Q48H [facility] Midazolam HCl 50 mg/ Sodium (Chloride) 100 mls @ 4.52 mls/hr IV TITRATE [facility]; Protocol Piperacillin Sod/Tazobactam (Sod 4.5 gm/ Sodium Chloride) 100 mls @ 25 mls/hr IV Q8H [facility] Piperacillin Sod/Tazobactam (Sod 4.5 gm/ Sodium Chloride) 100 mls @ 200 mls/hr IV ONETIME ONE Stop: 04/04/18 18:44 Last Admin: 04/04/18 18:30 Dose: 200 mls/hr Insulin Aspart (Novolog) 0 unit SUBCUT Q6HR [facility]; Protocol Last Admin: 04/04/18 18:29 Dose: 3 units Insulin Detemir (Levemir) 15 unit SUBCUT BID [facility] Last Admin: 04/04/18 09:42 Dose: 15 units Lisinopril (Prinivil) 20 mg PO DAILY [facility] Last Admin: 04/04/18 09:42 Dose: 20 mg Methylprednisolone Sodium Succinate (Solu-Medrol) 60 mg IVPUSH Q8H [facility] Last Admin: 04/04/18 17:35 Dose: 60 mg Mometasone Furoate/Formoterol Fumar (Dulera 100-5 Mcg) 2 puff IH BID [facility] Last Admin: 04/03/18 20:44 Dose: Not Given Pantoprazole Sodium (Protonix Iv) 40 mg IVPUSH BEDTIME [facility] Liraglutide 1.2 Mg 0 each SUBCUT DAILY [facility] Last Admin: 04/04/18 09:33 Dose: Not Given Pregabalin (Lyrica) 50 mg PO TID [facility] Last Admin: 04/04/18 14:31 Dose: 50 mg Saccharomyces Boulardii (Florastor) 500 mg PO DAILY [facility] Last Admin: 04/04/18 09:42 Dose: 500 mg Warfarin Sodium (Coumadin) 2 mg PO DAILY@1800 [facility] Last Admin: 04/04/18 18:29 Dose: 2 mg Discontinued Medications Acetaminophen (Tylenol) 650 mg PO Q4H PRN PRN Reason: Pain (Mild 1-3)/fever Hydrocodone Bitart/Acetaminophen ([place] 325-5 Mg) 1 tab PO Q4H PRN PRN Reason: Pain (moderate 4-6) Bisacodyl (Dulcolax) 5 mg PO DAILY PRN PRN Reason: Constipation Calcium Gluconate (Calcium Gluconate) 1 gm IV ONETIME STA Stop: 04/02/18 00:25 Last Admin: 04/02/18 00:38 Dose: 1 gm Docusate Sodium (Colace) 100 mg PO BID PRN PRN Reason: Constipation Enoxaparin Sodium (Lovenox) 30 mg SUBCUT DAILY [facility] Last Admin: 04/03/18 10:38 Dose: 30 mg Enoxaparin Sodium (Lovenox) 100 mg SUBCUT Q12H [facility] Enoxaparin Sodium (Lovenox) 70 mg SUBCUT ONETIME ONE Stop: 04/03/18 13:15 Last Admin: 04/03/18 13:45 Dose: 70 mg Enoxaparin Sodium (Lovenox) 50 mg SUBCUT ONETIME ONE Stop: 04/04/18 15:50 Last Admin: 04/04/18 17:06 Dose: 50 mg Furosemide (Lasix) 40 mg IVPUSH NOW ONE Stop: 04/01/18 22:33 Last Admin: 04/01/18 22:56 Dose: 40 mg Furosemide (Lasix) 120 mg PO DAILY [facility] Last Admin: 04/03/18 08:53 Dose: Not Given Furosemide (Lasix) 20 mg IVPUSH NOW ONE Stop: 04/03/18 08:01 Last Admin: 04/03/18 07:42 Dose: 20 mg Hydromorphone HCl (Dilaudid) 0.25 mg IVPUSH Q2H PRN PRN Reason: Pain (severe 7-10) Propofol (Diprivan 100 Ml) Confirm Administered Dose 100 mls @ as directed .ROUTE .[facility] ONE Stop: 04/02/18 00:59 Last Admin: 04/02/18 02:36 Dose: Not Given Midazolam HCl 50 mg/ Sodium (Chloride) 50 mls @ 0.5 mls/hr IV TITRATE [facility]; Protocol Midazolam HCl 50 mg/ Sodium (Chloride) 50 mls @ 1.67 mls/hr IV TITRATE [facility]; Protocol Last Titration: 04/02/18 06:59 Dose: 0.11 mg/kg/hr, 10 mls/hr Sodium Chloride (Normal Saline) Confirm Administered Dose 50 mls @ as directed .ROUTE .[place]-MED ONE Stop: 04/02/18 02:15 Last Admin: 04/02/18 02:37 Dose: Not Given Sodium Chloride (Normal Saline) 500 mls @ 1,000 mls/hr IV .[facility] ONE Stop: 04/02/18 02:45 Last Admin: 04/02/18 02:37 Dose: 1,000 mls/hr Dopamine HCl/Dextrose (Dopamine In D5w 400 Mg/250 Ml) Confirm Administered Dose 400 mg in 250 mls @ as directed .ROUTE .[facility]-MED ONE Stop: 04/02/18 02:48 Last Admin: 04/02/18 02:50 Dose: Not Given Midazolam HCl 50 mg/ Sodium (Chloride) 50 mls @ 1.67 mls/hr IV TITRATE [facility]; Protocol Last Titration: 04/02/18 08:31 Dose: 0.01 mg/kg/hr, 0.83 mls/hr Promethazine HCl 12.5 mg/ (Sodium Chloride) 50.5 mls @ 100 mls/hr IV Q6H PRN PRN Reason: Nausea/Vomiting Fentanyl 2,500 mcg/ Sodium (Chloride) 250 mls @ 11.16 mls/hr IV TITRATE [facility]; Protocol Last Titration: 04/03/18 01:30 Dose: 1.8 mcg/kg/hr, 20.1 mls/hr Dextrose/Sodium Chloride (Dextrose 5%-Normal Saline) 1,000 mls @ 125 mls/hr IV ASDIRECTED [facility] Last Admin: 04/02/18 23:20 Dose: 125 mls/hr Levofloxacin/Dextrose 750 mg/ (Premix) 150 mls @ 100 mls/hr IV ONETIME ONE Stop: 04/03/18 19:38 Last Admin: 04/03/18 18:35 Dose: 100 mls/hr Magnesium Sulfate/Dextrose 1 (gm/ Premix) 100 mls @ 100 mls/hr IV ONETIME ONE Stop: 04/04/18 18:24 Last Admin: 04/04/18 17:34 Dose: 100 mls/hr Insulin Detemir (Levemir) 12 unit SUBCUT BID [facility] Last Admin: 04/03/18 22:37 Dose: 12 units Insulin Detemir (Levemir) 12 unit SUBCUT ONETIME ONE Stop: 04/03/18 13:10 Last Admin: 04/03/18 13:45 Dose: 12 units Lorazepam (Ativan) 1 mg IV Q6H PRN PRN Reason: Anxiety Last Admin: 04/03/18 09:12 Dose: 1 mg Lorazepam (Ativan) 2 mg IVPUSH ONETIME ONE Stop: 04/03/18 10:30 Last Admin: 04/03/18 10:34 Dose: 2 mg Lorazepam (Ativan) 2 mg IVPUSH ONETIME ONE Stop: 04/03/18 13:34 Last Admin: 04/03/18 13:41 Dose: 2 mg Midazolam HCl (Versed 1 Mg/Ml) 1 mg IVPUSH ONETIME ONE Stop: 04/02/18 02:13 Last Admin: 04/02/18 02:17 Dose: 1 mg Midazolam HCl (Versed 5 Mg/Ml) Confirm Administered Dose 50 mg .ROUTE .ST[facility]-MED ONE Stop: 04/02/18 02:14 Last Admin: 04/02/18 02:17 Dose: Not Given Midazolam HCl (Versed 1 Mg/Ml) 1 mg IVPUSH .ST[facility]-MED ONE Stop: 04/02/18 01:01 Ondansetron HCl (Zofran) 4 mg IV Q6H PRN PRN Reason: Nausea/Vomiting Pantoprazole Sodium (Protonix Iv) 40 mg IV Q12HR [facility] Last Admin: 04/03/18 08:48 Dose: 40 mg Pantoprazole Sodium (Protonix Iv) 40 mg IVPUSH BEDTIME [facility] Pantoprazole Sodium (Protonix Iv) 40 mg IVPUSH ONETIME ONE Stop: 04/04/18 17:27 Last Admin: 04/04/18 17:49 Dose: 40 mg Polyethylene Glycol (Miralax) 17 gm PO DAILY PRN PRN Reason: Constipation Saccharomyces Boulardii (Florastor) 500 mg PO NOW STA Stop: 04/03/18 18:10 Last Admin: 04/03/18 18:28 Dose: 500 mg Senna/Docusate Sodium (Senna Plus) 1 tab PO BID PRN PRN Reason: Constipation Last Admin: 04/03/18 08:54 Dose: 1 tab Vecuronium [place] (Vecuronium) 10 mg .ROUTE .STK-MED ONE Stop: 04/02/18 01:01 - Exam General: Reports: Sedated, Other (On mechanical ventilation) HEENT: Reports: Pupils Equal, Pupils Reactive, Other (OG/ET tubes in placed) Neck: Reports: Trachea Midline, No Thyromegaly Lungs: Reports: Normal Respiratory Effort Cardiovascular: Reports: Irregular Rhythm GI/Abdominal Exam: Normal Bowel Sounds, Soft, Non-Tender, No Organomegaly, No Distention, Other (Obese) (Female) Exam: Other (indwelling sow catheter) Rectal (Female) Exam: Deferred Back Exam: Reports: Other (deferred) Extremities: No Pedal Edema, Normal Capillary Refill Skin: Reports: Warm, Dry, Intact Physical Findings Comments:: Unable to obtain complete physical exam, patient is sedated and intubated on mechanical vent Discharge Operative/Procedures - Procedures Performed Intubation Indication: Respiratory Failure
[2018-04-04] MEDS ORDERED: Pantoprazole 40 MG Vial IVPUSH SCH (21:00)
[2018-04-04] MEDS ORDERED: Enoxaparin 100 MG/1 ML Syringe SUBCUT SCH (21:00)
[2018-04-05] MEDS ORDERED: Piperacillin/Tazobactam 4.5 GM in Sodium Chloride 0.9% 100 ML IV SCH (02:00)
[2018-04-05] MEDS ORDERED: Midazolam 50 MG in Sodium Chloride 0.9% 50 ML IV SCH (03:00)
[2018-04-05] MEDS ORDERED: Pantoprazole 40 MG Vial IVPUSH SCH (09:00)
[2018-04-05] MEDS ORDERED: Levofloxacin/Dextrose 5%-Water 750 MG in Premix Bag 1 BAG IV SCH (18:00)
== END 2018-04-04 19:33 | DRG 208 ==
LOC: JD.ED 21:02 → JD.ICU 04-02 06:17
PROVIDERS: ADMIT Internal Medicine; ATTEND Internal Medicine
PROC: 5A09357 Assistance with Respiratory Ventilation, Less than 24 Consecutive Hours, Continuous Positive Airway Pressure (ICD-10-PCS; 2018-04-01)
PROC: 0BH17EZ Insertion of Endotracheal Airway into Trachea, Via Natural or Artificial Opening (ICD-10-PCS; 2018-04-01)
PROC: 039Y3ZZ Drainage of Upper Artery, Percutaneous Approach (ICD-10-PCS; 2018-04-01)
PROC: 0D9670Z Drainage of Stomach with Drainage Device, Via Natural or Artificial Opening (ICD-10-PCS; 2018-04-01)
PROC: 5A1945Z Respiratory Ventilation, 24-96 Consecutive Hours (ICD-10-PCS; principal; 2018-04-02)
PROC: 3E033XZ Introduction of Vasopressor into Peripheral Vein, Percutaneous Approach (ICD-10-PCS; 2018-04-02)
DX: J96.22 Acute and chronic respiratory failure with hypercapnia (principal); J69.0 Pneumonitis due to inhalation of food and vomit; E87.2 Acidosis; N17.9 Acute kidney failure, unspecified; I13.0 Hypertensive heart and chronic kidney disease with heart failure and stage 1 through stage 4 chronic kidney disease, or unspecified chronic kidney disease; E66.2 Morbid (severe) obesity with alveolar hypoventilation; I50.32 Chronic diastolic (congestive) heart failure; E11.22 Type 2 diabetes mellitus with diabetic chronic kidney disease; N18.9 Chronic kidney disease, unspecified; H54.7 Unspecified visual loss; I48.91 Unspecified atrial fibrillation; E78.00 Pure hypercholesterolemia, unspecified; R32 Unspecified urinary incontinence; G89.29 Other chronic pain; M54.9 Dorsalgia, unspecified; M19.90 Unspecified osteoarthritis, unspecified site; G47.33 Obstructive sleep apnea (adult) (pediatric); E78.5 Hyperlipidemia, unspecified; J96.21 Acute and chronic respiratory failure with hypoxia; I95.2 Hypotension due to drugs; T42.75XA Adverse effect of unspecified antiepileptic and sedative-hypnotic drugs, initial encounter; R31.0 Gross hematuria; R06.02 Shortness of breath; R41.82 Altered mental status, unspecified; R40.0 Somnolence; R09.81 Nasal congestion; E87.5 Hyperkalemia; T17.990A Other foreign object in respiratory tract, part unspecified in causing asphyxiation, initial encounter; J44.9 Chronic obstructive pulmonary disease, unspecified; R79.1 Abnormal coagulation profile; Z68.31 Body mass index [BMI] 31.0-31.9, adult; Z87.891 Personal history of nicotine dependence; Z79.4 Long term (current) use of insulin; Z79.01 Long term (current) use of anticoagulants; Z99.81 Dependence on supplemental oxygen; Z79.899 Other long term (current) drug therapy
CPT/HCPCS: 31500; 36415; 36600; 51702; 71045; 71045-26; 80048; 80053; 81001; 82803; 82962; 83605; 83735; 83880; 84484; 85007; 85025; 85027; 85379; 85610; 85730; 86140; 87040; 93005; 93306; 94002; 94003; 94640; 94660; 94667; 94668; 96365; 96366; 96367; 96368; 96375; 96376; 99291; 99292; A9270-GY; C9113; J0610; J1265; J1650; J1815-GY; J1940; J1956; J2060; J2250; J2543; J2920; J3010; J3475; J3490; J7030; J7040; J7042; J7050; J7060